=== PATIENT | male | born 1965 | race Caucasian/White ===

== ENCOUNTER 2019-05-26 09:05 | Inpatient (IN) | payer MEDICAID, SELFPAY ==
[2019-05-26] VITALS (8 sets, daily range): BP systolic 141–199; BP diastolic 71–111; PULSE 92–113; RESP 18–23; TEMP 36.6–36.8; O2SAT 96–100; BMI 39.0
--- NOTE | 2019-05-26 09:21 | ED.AMS ---
HPI - Altered Mental Status General Chief Complaint: Diabetic Problem Stated Complaint: type 2 diabetic, out of it, hallucinations Time Seen by Provider: 05/26/19 09:20 Source: patient and family (brother) Mode of arrival: Ambulatory Limitations: other (speech issues) History of Present Illness HPI narrative: 53-year-old male comes to the emergency department with complaint of hallucinations and difficulty expressing himself. Patient states that he has a hard time describing what the hallucinations are. He knows that they are not real, he states that they were there intermittently. They are not threatening more intimidating to him. Patient states that he has known diabetes, hypertension and dyslipidemia he has been off medications for years he had a lot of urinary frequency. Patient saw his primary care who restarted on aspirin, lisinopril, hydrochlorothiazide, atorvastatin and metformin. Patient states he has been taking the metformin daily but only sporadically some of the blood pressure medications. He states over the last 3-4 days he has had these hallucinations that began after he started the medications. He states that he has had trouble describing them he feels like he can talk appropriately about other topics without issue. He is accompanied by his [id number] who states this is very abnormal and he has never had symptoms like this before. He denies headache, he denies other vision changes, he denies any other speech changes, no dysarthria noted by family. No chest pain or shortness of breath. No nausea or vomiting no other GI or urinary symptoms he states the frequency is mildly improved although he has had some mild constipation passing gas. He denies any weakness numbness, no difficulty with gait or movement. Denies tobacco, alcohol or illicit. Denies any prior surgeries. Denies any allergies to medications. Related Data Home Medications Medication Instructions Recorded Confirmed aspirin 81 mg PO DAILY 05/26/19 05/26/19 atorvastatin 40 mg PO DAILY 05/26/19 05/26/19 hydrochlorothiazide 12.5 mg PO QAM 05/26/19 05/26/19 lisinopril 40 mg PO DAILY 05/26/19 05/26/19 metformin 1,000 mg PO BID 05/26/19 05/26/19 Allergies Allergy/AdvReac Type Severity Reaction Status Date / Time No Known Drug Allergies Allergy Verified 05/26/19 10:03 Review of Systems Review of Systems ROS Unobtainable: All systems reviewed & are unremarkable except as noted in HPI and below Constitutional Constitutional: Denies body ache(s), Denies chills, Denies fever(s), Denies headache(s) and Denies weakness Eyes Eyes: Denies blurry vision, Denies change in vision, Denies diplopia and Denies loss of vision ENT Ears, Nose, Mouth, and Throat: Denies abnormal hearing, Denies vertigo, Denies dizziness, Denies headache(s) and Denies disequilibrium Cardiovascular Cardiovascular: Denies chest pain, Denies diaphoresis, Denies syncope, Denies edema, Denies palpitations, Denies dyspnea and Denies dyspnea on exertion Respiratory Respiratory: Denies chest congestion, Denies cough, Denies dyspnea and Denies dyspnea on exertion Gastrointestinal Gastrointestinal: Denies abdominal pain, Denies melena, Reports constipation, Denies diarrhea, Denies nausea and Denies vomiting Genitourinary Genitourinary: Denies hematuria, Denies dysuria, Denies flank pain, Reports urinary frequency (Improving), Denies urinary hesitancy, Denies urinary incontinence and Denies urinary urgency Musculoskeletal Musculoskeletal: Denies abnormal gait, Denies limited range of motion, Denies muscle weakness, Denies numbness, Denies stiffness and Denies tingling Integumentary/Breasts Skin/Breast: Denies rash Neurologic Neurologic: Denies abnormal hearing, Denies abnormal movements, Reports abnormal speech, Denies abnormal gait, Denies behavioral changes, Denies confusion, Denies vertigo, Denies dizziness, Denies syncope, Denies headache(s), Denies focal weakness, Denies loss of vision, Denies numbness, Denies seizure-like activity, Denies sensory deficit, Denies tingling, Denies paresthesias, Denies disequilibrium and Denies weakness Psychiatric Psychiatric: Reports as per HPI, Denies behavioral changes, Denies confusion, Denies auditory hallucinations, Reports visual hallucinations, Denies hallucinations, Denies homicidal ideation and Denies suicidal ideation Endocrine Endocrine: Denies palpitations Patient History Medical History (Updated 05/26/19 @ 12:36 by Jocelynn Patricio DO) Diabetes (Acute) Dyslipidemia (Acute) Hypertension (Acute) Social History household members: family Smoking Status: Never smoker alcohol intake: never Smoking Status: Never smoker Substance Use Type: does not use Exam Narrative Exam Narrative: GEN: well nourished, well appearing male, alert and oriented x 3, patient appears to be in mild distress. Patient is able to give majority of the history without issue but has difficulty describing his hallucinations. HEENT: Atraumatic, pupils are equal round reactive to light, extraocular movements are intact, no nystagmus noted, nares are clear, TMs are clear with no fluid, there is no conjunctival pallor. Throat is clear without any exudates, erythema, tonsillar enlargement or uvular deviation, no facial droop. HEART: Regular rate and rhythm without murmur, clicks, rubs. Pulses are equal in upper and lower extremities LUNGS:Lungs clear to auscultation, no wheezes, rales, crackles, chest moves symmetrically ABD:bowel sounds normal, soft, non-tender, no guarding, rebound, rigidity, no masses noted, no hepatosplenomegaly :No CVA tenderness MSCL: Non-tender, no muscle atrophy, muscles strength 5/5 upper and lower extremities, full range of motion, normal gait NEURO:CN 2-12 intact, sensation normal, reflexes 2/4 upper and lower extremities. finger nose finger test normal, heel washburn test normal, romberg normal, mild expressive aphasia. Difficulty describing objects on the NIH scale although he is able to describe the scene that occurs without any issue on the NIH scale. SKIN: No rash or skin changes. PSYCH: Positive for visual hallucinations, denies auditory, no suicidal homicidal ideation, denies depression or other psychiatric symptoms. Initial Vital Signs Initial Vital Signs: Vital Signs Pulse Rate 113 H 05/26/19 09:24 Respiratory Rate 20 05/26/19 09:24 Blood Pressure 199/111 H 05/26/19 09:24 Pulse Oximetry 99 05/26/19 09:24 Scores NIH Stroke Scale Level of Conciousness: Alert, keenly responsive Ask month/age: Answers both questions correctly. Open/close eyes, close hand: Performs both tasks correctly Best gaze horizontal: Normal Visual wang: No visual loss Facial palsy: Normal symetrical movement Left arm drift: No drift for full 10 sec Right arm drift: No drift for full 10 sec Left leg drift: No drift for full 10 sec Right leg drift: No drift for full 10 sec Limb ataxia: Absent Sensory on face/arms/legs: Normal, no sensory loss Best language: Mild to moderate, slurs some words (no slurring but cannot name 3/5 objects but can tell me what they are related too. Can described scene without issue.) Dysarthria: Normal Extinction or inattention: No abnormality Total NIH Stroke scale score: 1 Course Orders Ordered: ED Orders 05/26/19 10:50 Urine Culture Stat Urine Drug Screen, Rapid Stat Urine Microscopic Stat Acetaminophen (Tylenol) 650 mg PO Q6HR PRN PRN Reason: Fever/Mild Pain (1-3) Al Hydrox/Mg Hydrox/Simethicone (Maalox Plus) 30 ml PO Q6HR PRN PRN Reason: Dyspepsia Bisacodyl (Dulcolax) 10 mg GA DAILY PRN PRN Reason: Constipation Calcium Carbonate (Tums) 1,000 mg PO Q4HR PRN PRN Reason: Dyspepsia Dextrose (D50w) 25 gm IV PRN PRN; Protocol PRN Reason: Hypoglycemia Heparin Sodium (Porcine) (Heparin) 5,000 unit SUBCUT BID DEEPAK Sodium Chloride (Normal Saline 0.9%) 1,000 mls @ 100 mls/hr IV CONT [facility] Last Admin: 05/26/19 16:03 Dose: 100 mls/hr Documented by: MAGNOLIA Ceftriaxone Sodium/Dextrose (Rocephin) 2 gm in 50 mls @ 100 mls/hr IV 1300 DEEPAK Insulin Aspart (Novolog Flexpen) 0 unit SUBCUT ACHS [facility]; Protocol Last Admin: 05/26/19 17:11 Dose: 3 unit Documented by: MAGNOLIA Cosigned by: MARTINA Labetalol HCl (Trandate) 10 mg IV Q4HR PRN PRN Reason: Hypertension Magnesium Hydroxide (Milk Of Magnesia) 30 ml PO DAILY PRN PRN Reason: Constipation Naloxone HCl (Narcan) 0.2 mg IV Q2MIN PRN PRN Reason: Opiate Reversal Ondansetron HCl (Zofran) 4 mg IV Q8HR PRN PRN Reason: Nausea And Vomiting Discontinued Medications Aspirin (Aspirin Chew) 324 mg PO NOW ONE Stop: 05/26/19 10:35 Last Admin: 05/26/19 11:00 Dose: 324 mg Documented by: NOLAN Sodium Chloride (Normal Saline 0.9%) 1,000 mls @ 150 mls/hr IV CONT [facility] Last Admin: 05/26/19 10:40 Dose: Not Given Documented by: NOLAN Sodium Chloride (Normal Saline 0.9%) 1,000 mls @ 1,000 mls/hr IV BOLUS ONE Stop: 05/26/19 10:58 Last Infusion: 05/26/19 12:17 Dose: 0 mls/hr Documented by: Admin: 05/26/19 10:51 Dose: 1,000 mls/hr Documented by: NOLAN Ceftriaxone Sodium/Dextrose (Rocephin) 2 gm in 50 mls @ 100 mls/hr IV NOW ONE Stop: 05/26/19 13:04 Last Infusion: 05/26/19 13:32 Dose: 0 mls/hr Documented by: Admin: 05/26/19 12:57 Dose: 100 mls/hr Documented by: NOLAN Insulin Human Regular (Humulin R) 5 unit SUBCUT NOW ONE Stop: 05/26/19 10:36 Last Admin: 05/26/19 10:58 Dose: 5 unit Documented by: NOLAN Cosigned by: SHAMAR Insulin Human Regular (Humulin R) 10 unit IV NOW ONE Stop: 05/26/19 14:59 Last Admin: 05/26/19 16:03 Dose: 10 unit Documented by: MAGNOLIA Cosigned by: MARTINA Vital Signs Vital signs: Vital Signs - 8 hr 05/26/19 11:47 Pulse Rate 92 H Respiratory Rate 18 Blood Pressure [Right Arm] 141/71 H Pulse Oximetry 96 MDM - Altered Mental Status Lab Data Attestation: I reviewed the patient's lab results. Result diagrams: 05/26/19 09:50 05/26/19 09:50 Labs: Lab Results 05/26/19 05/26/19 05/26/19 Range/Units 09:50 09:50 09:50 WBC 16.0 H (4.5-11.0) X10^3/uL RBC 5.20 (4.5-5.9) X10^6/uL Hgb 14.9 (13.5-17.5) g/dL Hct 43.9 (41-53) % MCV 84.3 (80-100) fL MCH 28.6 (26-34) PG MCHC 33.9 (30-36) % RDW 14.8 (11.6-14.8) % Plt Count 434 H (150-400) X10^3/uL Neut % (Auto) 82.7 H (50-75) % Lymph % (Auto) 10.8 L (25-40) % [place] % (Auto) 6.1 (3-14) % Eos % (Auto) 0.2 L (2-4) % Baso % (Auto) 0.2 (0-2) % Neut # (Auto) 60630 H (1256-8213) /uL Lymph # (Auto) 1700 (8878-0936) /uL [place] # (Auto) 1000 H (0-900) /uL Eos # (Auto) 0 (0-450) /uL Baso # (Auto) 0 (0-100) /uL PT 13.4 H (10.1-12.7) SECONDS INR 1.2 (0.9-1.3) APTT 32 (26.4-36.2) SECONDS ABG pH (7.35-7.45) ABG pCO2 (35-45) mmHg ABG pO2 (80-100) mmHg ABG HCO3 (22-26) mmol/L ABG Total CO2 (21-31) mmol/L ABG O2 Saturation (95-100) % ABG Base Excess (-2-2) mmol/L FiO2 Sodium 132 L (137-145) mmol/L Potassium 4.5 (3.4-5.1) mmol/L Chloride 91 L (98-107) mmol/L Carbon Dioxide 23 (22-32) mmol/L BUN 31 H (9-20) mg/dL Creatinine 1.30 H (0.66-1.25) mg/dL Estimated GFR 58.2 L (>60) mL/min BUN/Creatinine Ratio 23.8 H (6-22) Glucose 460 H (70-100) mg/dL Calcium 9.6 (8.4-10.2) mg/dL Total Bilirubin 0.9 (0.2-1.3) mg/dL AST 16 L (17-59) IU/L ALT 16 (<50) IU/L Alkaline Phosphatase 136 H (38-126) U/L Total Creatine Kinase 21 L (55-170) U/L CK-MB (CK-2) TNP CK-MB (CK-2) Rel Index TNP Troponin I < 0.012 (0.01-0.034) ng/mL Total Protein 9.0 H (6.3-8.2) g/dL Albumin 4.7 (3.5-5.0) g/dL Globulin 4.3 H (1.7-4.1) g/dL Albumin/Globulin Ratio 1.1 (1.0-2.8) TSH (0.47-4.68) uIU/mL Urine RBC (0-5/HPF) Urine WBC (0-5/HPF) Urine Bacteria (None) Ur Culture Indicated? U Opiates 300ng/mL cut (Negative) Ur Oxycodone Screen (Negative) Urine Methadone Screen (Negative) Ur Barbiturates Screen (Negative) U Tricyclic Antidepress (Negative) Ur Phencyclidine Scrn (Negative) Ur Amphetamines Screen (Negative) U Methamphetamines Scrn (Negative) Ur MDMA Scrn (Ecstasy) (Negative) U Benzodiazepines Scrn (Negative) Urine Cocaine Screen (Negative) U Marijuana (THC) Screen (Negative) Ketones (<0.27) mmol/L 05/26/19 05/26/19 05/26/19 Range/Units 09:50 09:50 09:55 WBC (4.5-11.0) X10^3/uL RBC (4.5-5.9) X10^6/uL Hgb (13.5-17.5) g/dL Hct (41-53) % MCV (80-100) fL MCH (26-34) PG MCHC (30-36) % RDW (11.6-14.8) % Plt Count (150-400) X10^3/uL Neut % (Auto) (50-75) % Lymph % (Auto) (25-40) % [place] % (Auto) (3-14) % Eos % (Auto) (2-4) % Baso % (Auto) (0-2) % Neut # (Auto) (1999-1716) /uL Lymph # (Auto) (0080-0848) /uL [place] # (Auto) (0-900) /uL Eos # (Auto) (0-450) /uL Baso # (Auto) (0-100) /uL PT (10.1-12.7) SECONDS INR (0.9-1.3) APTT (26.4-36.2) SECONDS ABG pH 7.35 (7.35-7.45) ABG pCO2 36.0 (35-45) mmHg ABG pO2 89 (80-100) mmHg ABG HCO3 20 L (22-26) mmol/L ABG Total CO2 21 (21-31) mmol/L ABG O2 Saturation 96 (95-100) % ABG Base Excess -6.0 L (-2-2) mmol/L FiO2 21 Sodium (137-145) mmol/L Potassium (3.4-5.1) mmol/L Chloride (98-107) mmol/L Carbon Dioxide (22-32) mmol/L BUN (9-20) mg/dL Creatinine (0.66-1.25) mg/dL Estimated GFR (>60) mL/min BUN/Creatinine Ratio (6-22) Glucose (70-100) mg/dL Calcium (8.4-10.2) mg/dL Total Bilirubin (0.2-1.3) mg/dL AST (17-59) IU/L ALT (<50) IU/L Alkaline Phosphatase (38-126) U/L Total Creatine Kinase (55-170) U/L CK-MB (CK-2) CK-MB (CK-2) Rel Index Troponin I (0.01-0.034) ng/mL Total Protein (6.3-8.2) g/dL Albumin (3.5-5.0) g/dL Globulin (1.7-4.1) g/dL Albumin/Globulin Ratio (1.0-2.8) TSH 1.67 (0.47-4.68) uIU/mL Urine RBC (0-5/HPF) Urine WBC (0-5/HPF) Urine Bacteria (None) Ur Culture Indicated? U Opiates 300ng/mL cut (Negative) Ur Oxycodone Screen (Negative) Urine Methadone Screen (Negative) Ur Barbiturates Screen (Negative) U Tricyclic Antidepress (Negative) Ur Phencyclidine Scrn (Negative) Ur Amphetamines Screen (Negative) U Methamphetamines Scrn (Negative) Ur MDMA Scrn (Ecstasy) (Negative) U Benzodiazepines Scrn (Negative) Urine Cocaine Screen (Negative) U Marijuana (THC) Screen (Negative) Ketones 4.02 H (<0.27) mmol/L 02/24/20 02/24/20 Range/Units 10:50 10:50 WBC (4.5-11.0) X10^3/uL RBC (4.5-5.9) X10^6/uL Hgb (13.5-17.5) g/dL Hct (41-53) % MCV (80-100) fL MCH (26-34) PG MCHC (30-36) % RDW (11.6-14.8) % Plt Count (150-400) X10^3/uL Neut % (Auto) (50-75) % Lymph % (Auto) (25-40) % [place] % (Auto) (3-14) % Eos % (Auto) (2-4) % Baso % (Auto) (0-2) % Neut # (Auto) (7877-3579) /uL Lymph # (Auto) (7107-6598) /uL [place] # (Auto) (0-900) /uL Eos # (Auto) (0-450) /uL Baso # (Auto) (0-100) /uL PT (10.1-12.7) SECONDS INR (0.9-1.3) APTT (26.4-36.2) SECONDS ABG pH (7.35-7.45) ABG pCO2 (35-45) mmHg ABG pO2 (80-100) mmHg ABG HCO3 (22-26) mmol/L ABG Total CO2 (21-31) mmol/L ABG O2 Saturation (95-100) % ABG Base Excess (-2-2) mmol/L FiO2 Sodium (137-145) mmol/L Potassium (3.4-5.1) mmol/L Chloride (98-107) mmol/L Carbon Dioxide (22-32) mmol/L BUN (9-20) mg/dL Creatinine (0.66-1.25) mg/dL Estimated GFR (>60) mL/min BUN/Creatinine Ratio (6-22) Glucose (70-100) mg/dL Calcium (8.4-10.2) mg/dL Total Bilirubin (0.2-1.3) mg/dL AST (17-59) IU/L ALT (<50) IU/L Alkaline Phosphatase (38-126) U/L Total Creatine Kinase (55-170) U/L CK-MB (CK-2) CK-MB (CK-2) Rel Index Troponin I (0.01-0.034) ng/mL Total Protein (6.3-8.2) g/dL Albumin (3.5-5.0) g/dL Globulin (1.7-4.1) g/dL Albumin/Globulin Ratio (1.0-2.8) TSH (0.47-4.68) uIU/mL Urine RBC 0-1/hpf (0-5/HPF) Urine WBC >100/hpf H (0-5/HPF) Urine Bacteria Many (>30) H (None) Ur Culture Indicated? Specimen cultured U Opiates 300ng/mL cut Negative (Negative) Ur Oxycodone Screen Negative (Negative) Urine Methadone Screen Negative (Negative) Ur Barbiturates Screen Negative (Negative) U Tricyclic Antidepress Negative (Negative) Ur Phencyclidine Scrn Negative (Negative) Ur Amphetamines Screen Negative (Negative) U Methamphetamines Scrn Negative (Negative) Ur MDMA Scrn (Ecstasy) Negative (Negative) U Benzodiazepines Scrn Negative (Negative) Urine Cocaine Screen Negative (Negative) U Marijuana (THC) Screen Negative (Negative) Ketones (<0.27) mmol/L Point of Care Testing Glucose POC 325 Urine Dip Bedside Urine Glucose 1000 mg/dl Bedside Urine Bilirubin - Negative Bedside Urine Ketone ++ 40 Urine Specific [place] 1.015 Bedside Urine Occult Blood +/- Bedside Urine pH 7.0 Bedside Urine Protein +/- 15 Bedside Urine Urobilinogen - Negative Bedside Urine Nitrite - Negative Bedside Urine Leukocytes + 70 Esterase ABG Data ABG results: ABG shows a pH is 7.34 with pCO2 hurt 36 PaO2 89 and a bicarb of 19.8. On room air. Attestation: I personally reviewed and interpreted this ABG as follows: Interpretation: metabolic acidosis. Imaging Data CT scan - head: Radiologist's Impression: Luis Krueger 53 M [address] [address] [address] Scan Report Signed Patient: Luis KruegerMR#: [id number] : 1965Acct:[id number] Age/Sex: 53 / MDate of Service: 05/26/19 Loc: ED Accession Number: [id number] Procedure: CT Stroke Ordering Provider: Jocelynn Patricio D.O. PROCEDURE: CT STROKE INDICATIONS: hallucinations, difficulty with speech TECHNIQUE: Noncontrast 4.5 mm thick angled axial sections acquired from the foramen magnum to the vertex, with coronal reformats. For radiation dose reduction, the following was used: automated exposure control, adjustment of mA and/or kV according to patient size. COMPARISON: None. FINDINGS: Image quality: Excellent. CSF spaces: Basal cisterns are patent. No extra-axial fluid collections. Ventricles are normal in size and shape. Brain: No midline shift. No intracranial masses or hemorrhage. Alexander-white matter interface is normal. 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 Skull and face: Calvarium and visualized facial bones are intact, without suspicious lesions. Sinuses: Visualized sinuses and mastoids are clear. IMPRESSION: No acute intracranial process. Chronic incidental presumed left posterior fossa arachnoid cyst Findings were personally telephoned and discussed with Dr. Patricio in the emergency department at 0958 hours 05/26/19. This study fulfills neurological imaging criteria for inclusion or exclusion of acute stroke therapies based on available published neurological imaging guidelines. Dictated by: Gomez Brush M.D. on 05/26/2019 at 9:52 Approved by: Gomez Brush M.D. on 05/26/2019 at 9:58 ECG Data Attestation: I personally reviewed and interpreted this ECG as follows: Prior ECG tracings: not available for review Interpretation: Tachycardia rate of 105 P are 120 QRS of [address] elevation appreciated. Depression. Patient does have some tolerate sloping T-waves in lateral leads. No priors available. MDM Narrative Medical decision making narrative: No acute change on Head CT non-contrast. Results called to myself by Dr. Brush. Labs show leukocytosis, anion gap of 18 with a bicarb that is 23, patient has positive ketones in serum. Trop is negative, he has some electrolyte abnormalities but none great enough that would likely cause his symptoms. TSH is in normal range. CTA is negative. Chest x-ray is negative. Urine shows leukocyte esterase but no nitrates. Sent for culture. His glucose is elevated at 460 after L fluid and 5 of insulin patient came down to 364. Patient still states he is having some mild symptoms but states it seems a little bit better. He is continued to have some difficulties expressing himself at times. Discussed with hospice initially there was concern for hypertensive encephalopathy but his pressure improved almost immediately on repeat serial blood pressures, stroke versus is hallucinations secondary to hyperglycemia although he is not in DKA at this time. Patient was started on Rocephin [address] Faustin for hyperglycemia which is not DKA, possible stroke versus UTI with altered mental status. Patient has not had any worsening symptoms. He has had 4 days of symptoms so he is far outside the tPA window. Discharge Plan Departure Patient Disposition: Admitted as Observation Clinical Impression: Hyperglycemia, Hallucinations UTI (urinary tract infection) Qualifiers: Urinary tract infection type: site unspecified Discharge Date/Time: 05/26/19 14:00 Admit Date/Time: 05/26/19 12:46 Admit Provider: Teetee Faustin
--- NOTE | 2019-05-26 09:35 | DI.CT.S_ITS ---
PROCEDURE: CT STROKE INDICATIONS: hallucinations, difficulty with speech TECHNIQUE: Noncontrast 4.5 mm thick angled axial sections acquired from the foramen magnum to the vertex, with coronal reformats. For radiation dose reduction, the following was used: automated exposure control, adjustment of mA and/or kV according to patient size. COMPARISON: None. FINDINGS: Image quality: Excellent. CSF spaces: Basal cisterns are patent. No extra-axial fluid collections. Ventricles are normal in size and shape. Brain: No midline shift. No intracranial masses or hemorrhage. [place]-white matter interface is normal. 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 Skull and face: Calvarium and visualized facial bones are intact, without suspicious lesions. Sinuses: Visualized sinuses and mastoids are clear. IMPRESSION: No acute intracranial process. Chronic incidental presumed left posterior fossa arachnoid cyst Findings were personally telephoned and discussed with Dr. Patricio in the emergency department at 0958 hours 05/26/19. This study fulfills neurological imaging criteria for inclusion or exclusion of acute stroke therapies based on available published neurological imaging guidelines. Dictated by: Gomez Brush M.D. on 05/26/2019 at 9:52 Approved by: Gomez Brush M.D. on 05/26/2019 at 9:58
--- NOTE | 2019-05-26 09:36 | DI.CT.S_ITS ---
PROCEDURE: CT ANGIO HEAD AND NECK INDICATIONS: hallucinations, difficulty with speech TECHNIQUE: Pre-contrast 4.5 mm thick sections acquired from the foramen magnum to the vertex. After the administration of intravenous contrast, 1 mm thick sections acquired from the aortic arch through the [place] of [place]. Post-contrast 4.5 mm thick sections then re-acquired from the foramen magnum to the vertex. 3-dimensional yapoffv-jrflzrauu-wtrnevdydr (MIP) and/or volume rendering reformats were acquired of the central intracranial vasculature and neck separately. COMPARISON: [facility], CT, CT STROKE, 05/26/2019, 9:37. FINDINGS: Image quality: Excellent. BRAIN: CSF spaces: Ventricles are normal in size and shape. Basal cisterns are patent. No extra-axial fluid collections. Brain: No midline shift. No intracranial bleeds. Posterior fossa hypoattenuation focus is unchanged. This likely represents prominent cisterna magna ersist arachnoid cyst. Alexander-white matter interface appears intact. Skull and face: Calvarium and facial bones appear intact, without suspicious lesions. Orbits appear normal. Sinuses: Sinuses and mastoids are clear. HEAD CT ANGIOGRAPHY: Anterior circulation: Intracranial internal carotid arteries are normal in size and flow. The flow within the paired anterior cerebral arteries is normal and symmetric. The flow within the middle cerebral arteries is normal and symmetric. The anterior communicating artery is seen. No aneurysms are seen. Posterior circulation: Visualized portions of the vertebral arteries demonstrate normal caliber, and join to form a normal appearing basilar artery. Flow within the posterior cerebral arteries is normal and symmetric. No aneurysms are seen. NECK CT ANGIOGRAPHY: The origins of the left and right common, internal and external carotid arteries demonstrate no areas of hemodynamically significant stenosis, vascular occlusion or aneurysmal dilation. Origins of the left and right vertebral arteries demonstrate no areas of hemodynamically significant stenosis, vascular occlusion or aneurysmal dilation. Aortic arch demonstrates conventional anatomy. Limited, visualized portions of the subclavian vasculature are unremarkable. Main pulmonary artery is mildly prominent. Early pulmonary artery hypertension cannot be definitively excluded. IMPRESSION: 1. No acute intracranial process. 2. No areas of hemodynamically significant stenosis, vascular occlusion or aneurysmal dilation within the anterior or posterior circulation. 3. No areas of hemodynamically significant stenosis, vascular occlusion or aneurysmal dilation within the neck vasculature. Any quantitative measurements of stenosis were performed using NASCET criteria. Dictated by: Shaye Hughes M.D. on 05/26/2019 at 10:55 Approved by: Shaye Hughes M.D. on 05/26/2019 at 11:03
[2019-05-26 10:00] LABS: Add Manual Diff / Slide Review NO; Basophils Absolute Auto 0 /uL (0-100); Basophils Percent Auto 0.2 % (0-2); Eosinophils Absolute Auto 0 /uL (0-450); Eosinophils Percent Auto 0.2 % (2-4); Hematocrit 43.9 % (41-53); Hemoglobin 14.9 g/dL (13.5-17.5); Lymphocytes Absolute Auto 1700 /uL (1100-4500); Lymphocytes Percent Auto 10.8 % (25-40); Mean Corpuscular HGB Conc 33.9 % (30-36); Mean Corpuscular Hemoglobin 28.6 PG (26-34); Mean Corpuscular Volume 84.3 fL (80-100); Monocytes Absolute Auto 1000 /uL (0-900); Monocytes Percent Auto 6.1 % (3-14); Neutrophils Absolute Auto 13200 /uL (1500-7000); Neutrophils Percent Auto 82.7 % (50-75); Platelet Count 434 X10^3/uL (150-400); Red Cell Distribution Width 14.8 % (11.6-14.8)
[2019-05-26 10:06] LABS: INR 1.2 (0.9-1.3); Prothrombin Time 13.4 SECONDS (10.1-12.7)
[2019-05-26 10:08] LABS: PTT Partial Thromboplastin Tim 32 SECONDS (26.4-36.2)
[2019-05-26 10:12] LABS: Alanine Aminotransferase 16 IU/L (<50); Albumin 4.7 g/dL (3.5-5.0); Albumin Globulin Ratio 1.1 (1.0-2.8); Alkaline Phosphatase 136 U/L (38-126); Aspartate Aminotransferase 16 IU/L (17-59); BUN Creatinine Ratio 23.8 (6-22); Bilirubin Total 0.9 mg/dL (0.2-1.3); Blood Urea Nitrogen 31 mg/dL (9-20); Calcium 9.6 mg/dL (8.4-10.2); Carbon Dioxide 23 mmol/L (22-32); Chloride 91 mmol/L (98-107); Creatine Kinase 21 U/L (55-170); Estimated Glomerular Filt Rate 58.2 mL/min (>60); Globulin 4.3 g/dL (1.7-4.1); Glucose 460 mg/dL (70-100); HEMOLYSIS < 15 (0-50); Potassium 4.5 mmol/L (3.4-5.1); Sodium 132 mmol/L (137-145)
[2019-05-26 10:13] LABS: Ketones (Beta-Hydroxybutyrate) 4.02 mmol/L (<0.27)
[2019-05-26 10:23] LABS: Troponin I < 0.012 ng/mL (0.01-0.034)
[2019-05-26] MEDS: SODIUM CHLORIDE 0.9% 1,000 ML 1000 ML IV (10:51)
[2019-05-26 10:54] LABS: Fractionated Inspired Oxygen 21; HCO3 ABG 20 mmol/L (22-26); Oxygen Saturation ABG 96 % (95-100); PO2 ABG 89 mmHg (80-100); TCO2 ABG 21 mmol/L (21-31); pH ABG 7.35 (7.35-7.45)
[2019-05-26] MEDS: INSULIN REGULAR 100 UNIT/ML 3 ML VIAL SUBCUT (10:58)
[2019-05-26] MEDS: ASPIRIN 81 MG CHEW TAB 324 MG PO (11:00)
[2019-05-26 11:15] LABS: Thyroid Stimulating Hormone 1.67 uIU/mL (0.47-4.68)
[2019-05-26 11:16] LABS: Ur Creatinine Normal (Normal); Ur Specific Gravity Normal (Normal); Urine Tetrahydrocannabinol Negative (Negative); Urine pH Normal (Normal)
[2019-05-26 11:17] LABS: UR Morphine/Opiate cutoff 300 Negative (Negative); Urine Amphetamines Negative (Negative); Urine Barbiturates Negative (Negative); Urine Benzodiazepines Negative (Negative); Urine Cocaine Negative (Negative); Urine MDMA Negative (Negative); Urine Methadone Negative (Negative); Urine Methamphetamines Negative (Negative); Urine Oxycodone Negative (Negative); Urine Phencyclidine Negative (Negative); Urine Tricyclic Antidepressant Negative (Negative)
[2019-05-26 11:29] LABS: Bacteria Urine Many (>30); Culture Indicated Urine Specimen Cultured; RBC Urine 0-1/HPF (0-5/HPF); WBC Urine >100/HPF (0-5/HPF)
[2019-05-26] MEDS: CEFTRIAXONE 2 GM/50 ML FROZ.PIGGY IV (12:57)
--- NOTE | 2019-05-26 14:13 | PC.NURSE ---
Patient alert, oriented, denies pain and nausea. Reports seeing things that aren't there. Patient denies hearing things. Patient reports this started after seeing his doctor and starting taking medications that had been filled by the provider. NIH 1, patient with some aphasia, could not name the objects in the pictures or read the sentences.
--- NOTE | 2019-05-26 14:18 | DI.MRI.S_ITS ---
PROCEDURE: MR STROKE Pre- and post-contrast brain MRI, non-contrast brain MR angiogram, pre- and postcontrast neck MR angiogram INDICATIONS: Expressive aphasia, Visual hallucinations, CVA r/o TECHNIQUE: Brain: Noncontrast axial T1 spin echo, axial T2 fast spin echo, sagittal and axial FLAIR, coronal T2 fast spin echo, axial gradient echo, axial diffusion and ADC through the brain. After the administration of contrast, axial 3D VIBE of the cranial vasculature and brain. Brain MRA: Non-contrast 3-D time of flight MR angiogram, with multiple zrnglyw-pejdyigrt-ljootabbhu (MIP) reformats performed. Neck MRA: Axial and sagittal TruFISP through the neck. Coronal dynamic MR angiogram during administration of contrast in the arterial and venous phases, with 3-dimenstional rnymsrj-uktfojiql-dxeiwocgte (MIP) reformats constructed from subtraction images. COMPARISON: None. FINDINGS: Image quality: Excellent. BRAIN: CSF spaces: Ventricles are normal in size and shape. Basal cisterns are patent. No extra-axial fluid collections. Brain: No intracranial bleeds or mass effects. Alexander-white matter interface is normal. Diffusion weighted images show no acute ischemic insults. Brainstem appears normal. Normal intravascular flow voids are present. No abnormal intracranial enhancement. Skull and face: Calvarial marrow signal is normal. Orbits appear normal. Sinuses: Sinuses and mastoids are clear. BRAIN MR ANGIOGRAM: Anterior circulation: Intracranial internal carotid arteries are normal in size and enhancement. The flow within the paired anterior cerebral arteries is normal and symmetric. The flow within the middle cerebral arteries is normal and symmetric. The anterior communicating artery is seen. No stenoses, occlusions, or aneurysms. Posterior circulation: The visualized portions of the vertebral arteries demonstrate normal caliber, and join to form a normal appearing basilar artery. The flow within the posterior cerebral arteries is normal and symmetric. No stenoses, occlusions, or aneurysms. NECK MR ANGIOGRAM: Carotids: Great vessels demonstrate a conventional anatomy as they arise from the aortic arch. The origins of the common carotid arteries appear patent. The calibers and courses of both common carotid arteries are normal. The bifurcation regions appear normal bilaterally. The internal carotid arteries demonstrate normal course and caliber. Posterior circulation: The origins of the vertebral arteries appear patent. More superior portions of both vertebral arteries demonstrate normal course and caliber, and join to form a normal appearing basilar artery. Miscellaneous: Subclavian arteries appear patent. Pre-contrast images through the neck show no soft tissue abnormalities. IMPRESSION: BRAIN MRI: Normal for age, source of current symptoms is not seen. BRAIN MR ANGIOGRAM: Normal intracranial MR angiogram. NECK MR ANGIOGRAM: Normal cervical MR angiogram. Dictated by: Petey Lew M.D. on 05/26/2019 at 16:13 Approved by: Petey Lew M.D. on 05/26/2019 at 16:15
[2019-05-26] MEDS: SODIUM CHLORIDE 0.9% 1,000 ML 100 ML IV (16:03)
[2019-05-26] MEDS: INSULIN REGULAR 100 UNIT/ML 3 ML VIAL 10 UNIT IV (16:03)
[2019-05-26] MEDS: INSULIN ASPART 100 UNIT/ML INSULN PEN SUBCUT ×2 (17:11→21:42)
--- NOTE | 2019-05-26 17:48 | ST.IPIE ---
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 Teetee Faustin Reason for Referral Expressive Language difficulties Language Evaluation Assessment Type Speech-Language Past Medical History Patient History 53-year-old male presented to the emergency department with complaint of hallucinations and difficulty expressing himself. Pt reported hallucinations have been occurring since approximately of last week when he resumed Insulin intake after not having taken it for possibly up to 4 yrs. Pt was largely able to express himself in ED with exception of describing hallucinations. CT scan revealed Chronic incidental presumed left posterior fossa arachnoid cyst . All other imaging appears to be normal. The pt lives with 3 brothers and reports being very uncomfortable with interacting with others and socializing. Hearing Hearing Level Normal Vision Comments Wears reading glasses Educational Status Education Level High School Previous Therapy Previous Speech-Language Therapy No Oral Motor Examination Oral Motor Exam Completed Yes Results WNL with exception of dentition, which was natural with several molars broken or missing. Pt reported no interference with mastication. Subjective Subjective Pt was awake, lying in bed and watching TV upon arrival of digital marketing analyst (Hanny Hobson and Rebeka Andre). He reported ongoing intermittent hallucinations on right side only, and did have 3-4 hallucinations over the course of assessment. He verbalized understanding that they were not real, that they don't speak to him, and had difficulty describing them. Pt denied swallow difficulties and felt his expressive and receptive language skills were at baseline with exception of difficulty describing hallucinations. He did report frequent urination and lack of bowel movement over several days. - Informal Assessment Assessment Findings Pt was 100% intelligible with no symptoms of dysarthria and was able to participate effectively in oral conversation. He answered simple and complex yes/no questions, followed 2- and 3- step directions, pointed to objects, and identified right/ left side body parts without difficulty. He reported changes in ability to answer questions. For example, being able to answer a question once but unable to later when asked again by a different person. The pt exhibited errors in reading and writing tasks, including perseveration in reading and transposing of letters and misspellings of phonetic and irregular words in writing tasks. He wrote a simple sentence that was grammatically correct but with misspellings. The pt stated he has never been good with writing and that he recognized the letters in written text but that it doesn't make any sense. Difficult to determine if this is baseline or new. Question dyslexia. The pt did experience 3-4 hallucinations on his right side only during the evaluation, which he had difficulty describing in detail. He identified individuals, sometimes famous people, other times relatives. At other times he described scenes, such as a kitchen or living room, and objects such a trash bag. He stated objects often match the room creating occasional difficulty for him to identify them as hallucinations. Images appear to stem from memories. Recommendations Follow pt for ongoing assessment of language skills. Assess cognitive linguistic skills. - Receptive Language - Expressive Language - Treatment Goals Short Term Goals 1. Pt will participate in further assessment of expressive, receptive and cognitive communication skills to guide POC. 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 Pt will demonstrate expressive and receptive language skills sufficient to express wants, needs, and ideas and participate in medical decisions. 2. Cognitive communication goals to be determined pending assessment.
--- NOTE | 2019-05-26 21:17 | PM.HP.1 ---
History of Present Illness History of Present Illness Date Patient Seen: 05/26/19 Time Patient Seen: 21:17 Chief complaint: type 2 diabetic, out of it, hallucinations Narrative: Mr. Luis Krueger is a 53-year-old male patient with a history significant for diabetes, hyperlipidemia and hypertension who presents to the ER with complaints of confusion and hallucinations. Patient has the above history but quit taking medications many years ago. Patient states he had been progressively feeling poorly so he sought medical care at the [facility] 1 week ago and was restarted on metformin 1000 mg twice daily, atorvastatin, hydrochlorothiazide and lisinopril. The patient states that after restarting medications is when he began experiencing hallucinations. His hallucinations are visual in nature and he describes them as familiar objects from his past and that appear in his right peripheral vision of both eyes.. He will look away and then the back again and will be gone. The patient states over the last day or 2 he has had increasing difficulty expressing himself including word-finding difficulties. The patient denies complaints headaches or other visual changes. Reports no difficulty with speech or swallowing, numbness, weakness or disequilibrium. He has had no recent complaints of fevers or chills nasal congestion or sore throat. No chest pain but endorses episodic palpitations. He has no shortness of breath cough or wheezing. He has had no abdominal pain the way does report abdominal discomfort that he relates to not moving his bowels for 1 week. He has had no nausea vomiting. He endorses frequent urination without burning or urgency or hematuria. The patient describes himself as a altered private person and avoids medical care. Upon arrival patient has a temperature 97.8?, and tachycardic 113, hypertensive 199/111 that improves to 151/91, respirations of 18 and saturation 99% on room air. The patient is evaluated following stroke protocol with CT and CTA of the head and neck being unremarkable except for a chronic posterior fossa arachnoid cyst. Her the patient underwent MR stroke protocol with results finding no acute injury and normal for patient age. On laboratory analysis patient has an elevated white count of 16.0 with left shift, hemoglobin of 14.9 hematocrit of 43.9 and platelets of 434. On coagulation is a PT of 13.4, INR of 1.2 and PTT of 32. On chemistries the patient has a low sodium at 132 and a potassium of 4.5 his BUN is 31 with a creatinine of 1.3, the patient's LFTs are unremarkable. His nonfasting glucose is 460. The patient has ketosis at 4.02. ABG is obtained finding a pH 7.35, pCO2 36, PO2 of 89, bicarb 20 with base excess -6 saturation calculated 96% on 21% oxygen. Troponin is negative at less than 0.012. And TSH is within normal at 1.67. A screening urinalysis is obtained finding greater than 100 wbc's and many bacteria and is reflex to culture the patient is admitted to the medicine service for toxic encephalopathy believe related to UTI with hyperglycemia and acute kidney injury. Patient History Medical History (Updated 05/26/19 @ 23:17 by LUIS ALFREDO Loomis) Diabetes (Acute) Dyslipidemia (Acute) Hypertension (Acute) Palpitations (Acute) Surgical History (Updated 05/26/19 @ 23:17 by LUIS ALFREDO Loomis) No pertinent past surgical history (Acute) Family & Social History Social History: household members family Prior Living Arrangements House Safety & Behavioral: Feels Safe in Current Yes Environment Been Physically Hurt or No Threatened By a Person Suicidal Ideation Description None Suicide Plan Description No Plan Tobacco & Substance use: Smoking Status Never smoker alcohol intake never Substance Use Type does not use Comment: Patient is single and lives with his 3 adoptive brothers in a single family home. The patient was adopted and has no knowledge of his blood relatives health history. Occupation: Unemployed Smoking: The patient denies using tobacco products. Alcohol: The patient denies consuming alcoholic beverages. Substance use: Patient denies recreation pharmaceuticals, herbal or cannabis products. Advanced directives: The patient does not have formal advanced directives but states his desire to be FULL CODE. He designates his brother Keven Krueger to be his surrogate decision maker. Meds Home Medications and Allergies Home Medications Medication Instructions Recorded Confirmed Type aspirin 81 mg PO DAILY 05/26/19 05/26/19 History atorvastatin 40 mg PO DAILY 05/26/19 05/26/19 History hydrochlorothiazide 12.5 mg PO QAM 05/26/19 05/26/19 History lisinopril 40 mg PO DAILY 05/26/19 05/26/19 History metformin 1,000 mg PO BID 05/26/19 05/26/19 History Allergies Allergy/AdvReac Type Severity Reaction Status Date / Time No Known Drug Allergies Allergy Verified 05/26/19 10:03 Review of Systems Review of Systems ROS: Yes All systems reviewed with the patient and are negative except as otherwise documented Exam Vital Signs (past 8 hours): - 05/26/19 14:20 05/26/19 16:23 05/26/19 20:54 Temperature 98.2 F 98.3 F 97.8 F Pulse Rate 100 H 103 H 93 H Respiratory Rate 18 20 18 Blood Pressure 194/111 H 151/91 H 142/86 H Pulse Oximetry 100 99 97 Oxygen Delivery Method Room Air Oxygen Flow Rate 0 Narrative Exam Narrative: GENERAL APPEARANCE: well developed, well nourished, slightly unkempt male who was restless but in no acute distress HEENT: Normocephalic, PERRLA, conjunctiva clear, EOMs intact without nystagmus, no sinus tenderness to percussion, no rhinorrhea, poor dentation, mucous membranes are dry and pink without lesions or exudate. NECK/THYROID: neck supple, no JVD, no carotid bruit, no thyromegaly, trachea midline. LYMPH NODES: no cervical or supraclavicular lymphadenopathy. SKIN: [place], warm and dry, decreased turgor with tenting, no visible lesions, rashes. HEART: regular rate and rhythm, S1-S2, no murmur, no rubs or gallops, brisk capillary refill, no edema LUNGS: clear to auscultation bilaterally, no coarseness crackles or wheezing, no cough present CHEST: Symmetrical movement, no accessory muscle use, good tidal volume. ABDOMEN: Soft, no distention, mild discomfort on palpation, no guarding or peritoneal signs, no organomegaly, no flank or suprapubic tenderness, active bowel tones. BACK: Normal curvature, nontender to palpation, no CVA tenderness on percussion EXTREMITIES: moves all extremities, strength is 5/5 and symmetrical, no deformities or joint effusions. NEUROLOGIC: AAO x4, repeatedly looking up into the right add visual hallucinations. Cranial nerves II-XII grossly intact, peripheral sensation intact to light touch, hearing grossly normal to speech. PSYCH: Guarded, suspicious, cooperative, appropriate with stable behavior, hallucinations are nonthreatening, no thoughts of self-harm or suicide. Objective Labs Result Diagrams: 05/26/19 09:50 05/26/19 09:50 Labs: Laboratory Results - last 24 hr 05/26/19 05/26/19 05/26/19 09:50 09:50 09:50 WBC 16.0 H RBC 5.20 Hgb 14.9 Hct 43.9 MCV 84.3 MCH 28.6 MCHC 33.9 RDW 14.8 Plt Count 434 H Neut % (Auto) 82.7 H Lymph % (Auto) 10.8 L Prentiss % (Auto) 6.1 Eos % (Auto) 0.2 L Baso % (Auto) 0.2 Neut # (Auto) 30940 H Lymph # (Auto) 1700 Prentiss # (Auto) 1000 H Eos # (Auto) 0 Baso # (Auto) 0 PT 13.4 H INR 1.2 APTT 32 ABG pH ABG pCO2 ABG pO2 ABG HCO3 ABG Total CO2 ABG O2 Saturation ABG Base Excess FiO2 Sodium 132 L Potassium 4.5 Chloride 91 L Carbon Dioxide 23 BUN 31 H Creatinine 1.30 H Estimated GFR 58.2 L BUN/Creatinine Ratio 23.8 H Glucose 460 H Calcium 9.6 Total Bilirubin 0.9 AST 16 L ALT 16 Alkaline Phosphatase 136 H Total Creatine Kinase 21 L CK-MB (CK-2) TNP CK-MB (CK-2) Rel Index TNP Troponin I < 0.012 Total Protein 9.0 H Albumin 4.7 Globulin 4.3 H Albumin/Globulin Ratio 1.1 TSH Urine RBC Urine WBC Urine Bacteria Ur Culture Indicated? U Opiates 300ng/mL cut Ur Oxycodone Screen Urine Methadone Screen Ur Barbiturates Screen U Tricyclic Antidepress Ur Phencyclidine Scrn Ur Amphetamines Screen U Methamphetamines Scrn Ur MDMA Scrn (Ecstasy) U Benzodiazepines Scrn Urine Cocaine Screen U Marijuana (THC) Screen Ketones 05/26/19 05/26/19 05/26/19 09:50 09:50 09:55 WBC RBC Hgb Hct MCV MCH MCHC RDW Plt Count Neut % (Auto) Lymph % (Auto) Prentiss % (Auto) Eos % (Auto) Baso % (Auto) Neut # (Auto) Lymph # (Auto) Prentiss # (Auto) Eos # (Auto) Baso # (Auto) PT INR APTT ABG pH 7.35 ABG pCO2 36.0 ABG pO2 89 ABG HCO3 20 L ABG Total CO2 21 ABG O2 Saturation 96 ABG Base Excess -6.0 L FiO2 21 Sodium Potassium Chloride Carbon Dioxide BUN Creatinine Estimated GFR BUN/Creatinine Ratio Glucose Calcium Total Bilirubin AST ALT Alkaline Phosphatase Total Creatine Kinase CK-MB (CK-2) CK-MB (CK-2) Rel Index Troponin I Total Protein Albumin Globulin Albumin/Globulin Ratio TSH 1.67 Urine RBC Urine WBC Urine Bacteria Ur Culture Indicated? U Opiates 300ng/mL cut Ur Oxycodone Screen Urine Methadone Screen Ur Barbiturates Screen U Tricyclic Antidepress Ur Phencyclidine Scrn Ur Amphetamines Screen U Methamphetamines Scrn Ur MDMA Scrn (Ecstasy) U Benzodiazepines Scrn Urine Cocaine Screen U Marijuana (THC) Screen Ketones 4.02 H 05/26/19 05/26/19 10:50 10:50 WBC RBC Hgb Hct MCV MCH MCHC RDW Plt Count Neut % (Auto) Lymph % (Auto) Prentiss % (Auto) Eos % (Auto) Baso % (Auto) Neut # (Auto) Lymph # (Auto) Prentiss # (Auto) Eos # (Auto) Baso # (Auto) PT INR APTT ABG pH ABG pCO2 ABG pO2 ABG HCO3 ABG Total CO2 ABG O2 Saturation ABG Base Excess FiO2 Sodium Potassium Chloride Carbon Dioxide BUN Creatinine Estimated GFR BUN/Creatinine Ratio Glucose Calcium Total Bilirubin AST ALT Alkaline Phosphatase Total Creatine Kinase CK-MB (CK-2) CK-MB (CK-2) Rel Index Troponin I Total Protein Albumin Globulin Albumin/Globulin Ratio TSH Urine RBC 0-1/hpf Urine WBC >100/hpf H Urine Bacteria Many (>30) H Ur Culture Indicated? Specimen cultured U Opiates 300ng/mL cut Negative Ur Oxycodone Screen Negative Urine Methadone Screen Negative Ur Barbiturates Screen Negative U Tricyclic Antidepress Negative Ur Phencyclidine Scrn Negative Ur Amphetamines Screen Negative U Methamphetamines Scrn Negative Ur MDMA Scrn (Ecstasy) Negative U Benzodiazepines Scrn Negative Urine Cocaine Screen Negative U Marijuana (THC) Screen Negative Ketones Assessment & Plan Assessment & Plan narrative: This is a 53-year-old male patient who has untreated diabetes, hypertension and hyperlipidemia had been untreated for many years who was just recently restarted on medication and has been experiencing impaired cognition and visual hallucinations. 1. Toxic metabolic encephalopathy, acute, present on admission, active The patient has had progressive symptoms for 1 week with visual hallucinations difficult concentration and word-finding. Hallucinations are familiar objects including paintings, shelving or plant. Hallucinations are nonthreatening. No prior history or family history of psychiatric disturbance. CVA ruled out with imaging finding no acute intracranial processes or vascular abnormalities, finding of chronic posterior fossa arachnoid cyst. MRI is normal for age. Patient is hyperglycemic with blood sugar 460 with ketones but no acidosis or anion gap. Symptoms may be related to urinary tract infection, urine with greater than 100 WBCs and many bacteria. Will evaluate response to antibiotic therapy noted below. Continued neuro checks in PT and OT to consult and evaluate. 2. Acute urinary tract infection, present on admission, active. Patient with markedly elevated blood sugar and untreated diabetes until 1 week ago having been started on metformin. urine with greater than 100 WBCs and many bacteria. Reflex to culture. Ordered ceftriaxone 2 g IV every 24 hours. 3. Type 2 diabetes with hyperglycemia, chronic, active Patient with long history of diabetes has been untreated until 1 week ago. He started on metformin and has an elevated creatinine 1.3 and EGFR of 58.2. No evidence of metformin toxicity. Patient states has not been eating well over the last week related to abdominal fullness, no bowel movement for 1 week. Blood sugar on admission is 460 with no acidosis or anion gap. He does have elevated ketones at 4.02. Patient received 5 units of insulin subcu x1 followed by 10 units of regular insulin IV with decrease in blood sugar to 240s. Fingerstick blood sugars at AC and HS. Coverage with low-dose correctional insulin. Ordered Lantus 8 units at bedtime. 4. Elevated serum creatinine, probable acute kidney injury verses chronic kidney disease, present on admission, active. Patient reports frequent urination with no burning, hematuria or flank pain. Patient appears clinically dehydrated. The patient presents with a BUN of 31 and creatinine of 1.3. BUN creatinine ratio was 23.8. He has had diabetes and hypertension that have been on treated for years presenting with a blood pressure of 199/111. Screening urinalysis completed, POC, positive for leukocyte esterase, negative nitrates, positive for protein, spec gravity of 1.015. Ordered normal saline 100 cc/hour. Will follow chemistries. 5. Constipation, present on admission, active. Patient reports not moving his bowels for 1 week. He states his stool has been hard and difficult to pass consistent with dehydration as mentioned above. Dulcolax suppository x1 now and daily as needed, docusate 100 mg twice daily. Rehydrate patient with normal saline 100 cc/hour. VTE prophylaxis: SCDs, heparin. Diet: Meeting carbohydrate diet IV fluid: Normal saline 100 cc/hour Patient is admitted to the hospital related to the severity symptoms and risk potential complications adverse events. The patient is admitted as observation with anticipated length of stay to be less than 2 midnights. Scores GCS Tammie coma scale eye opening: Spontaneous Tammie coma scale verbal response: Orientated [place] coma scale motor response: Obey commands Tammie coma scale total score: 15 Quality VTE Deep Vein Thrombosis/Pulmonary Embolism Present on Admission: No
--- NOTE | 2019-05-26 21:27 | PC.NURSE ---
Patient has been A&O, calm and cooperative mostly. Bed alarm on, asked patient to call if he needs to get out of bed. Patient not to happy about having to call when needing to go pee. NIH was at a 1 d/t patient getting couple of the naming list items wrong or some he new but unable to think of the name (siomara and beverley). Per S[facility] LOBATO, patient states he hasnt had a BM for over a week. Will give bowel regimen when ordered.
[2019-05-26] MEDS: BISACODYL 10 MG SUPP PR (21:42)
[2019-05-26] MEDS: HEPARIN 5,000 UNIT/ML VIAL 5000 UNIT SUBCUT (21:42)
[2019-05-26] MEDS: DOCUSATE 100 MG CAPSULE PO (21:42)
[2019-05-26] MEDS: INSULIN GLARGINE 100 UNIT/ML 3ML PEN 8 UNIT SUBCUT (21:43)
[2019-05-27] VITALS (7 sets, daily range): BP systolic 131–167; BP diastolic 77–102; PULSE 89–112; RESP 16–18; TEMP 37.1–37.3; O2SAT 98–100
[2019-05-27] MEDS: SODIUM CHLORIDE 0.9% 1,000 ML 100 ML IV (02:22)
[2019-05-27 05:12] LABS: Hemoglobin A1C% w Est Avg Glu 13.7 % (4.0-6.0)
[2019-05-27] MEDS: DOCUSATE 100 MG CAPSULE PO ×2 (08:32→21:29)
[2019-05-27] MEDS: HEPARIN 5,000 UNIT/ML VIAL 5000 UNIT SUBCUT ×2 (08:32→21:27)
[2019-05-27] MEDS: INSULIN ASPART 100 UNIT/ML INSULN PEN SUBCUT ×4 (08:32→21:28)
--- NOTE | 2019-05-27 10:21 | P.PN_ITS ---
Subjective Subjective Date Patient Seen: 05/27/19 Interval history: Luis Krueger is a 53-year-old male with a past medical history significant for untreated hypertension, hyperlipidemia, and diabetes mellitus type 2, previously insulin using, who had been untreated for many years and was recently restarted on all his medications who presented to ED with and has been experiencing impai red cognition and visual hallucinations. The patient is resting in bed comfortably. He continues to endorse visual hallucinations and delusions which are non threatening and are occurring regularly. He describes his aunt and niece and nephew smoking in a parking lot and seeing a wall from his childhood in his hospital room. He denies ever having hallucinations previously and is unthreatened by them. He previously had a headache the day before which has resolved. He denies auditory halluci nations. He is adopted and does not believe there are any mental health issues on his mother's side of the family and does not know his father's family history. He previously endorses depression related to grief of a relative passing for which he blames his stopping all of his medications several years ago. He denies shortness of breath, chest pain, abdominal pain, nausea, vomiting, fever, chills, dysuria, diarrhea or constipation. He is voiding and eliminating without difficulty. He is up ambulating independently. Exam Vital Signs (past 8 hours): - 05/27/19 04:34 05/27/19 08:17 Temperature 99.1 F 98.8 F Pulse Rate 112 H 99 H Respiratory Rate 18 16 Blood Pressure 151/96 H 156/100 H Pulse Oximetry 100 100 Oxygen Delivery Method Room Air Oxygen Flow Rate 0 Narrative Exam Narrative: General: Older gentleman lying in bed and in no acute distress, well-developed, well-nourished, appropriately interactive. HEENT: Normocephalic, atraumatic. External ears without defect. Pupils equal, round, and reactive to light. Anicteric sclerae, moist conjunctivae, and no lid lag. Oropharynx free of erythema and cobble stoning with moist mucosa. Neck: Supple with full range of motion. No jugular venous distension. No bruits. No lymphadenopathy or thyromegaly. Cardiovascular: Regular rate and rhythm without murmurs, rubs, or gallops appreciated. Pulmonary: Clear to auscultation bilaterally without crackles, wheezes, or rhonchi. Normal respiratory effort with no use of accessory muscles. Abdomen: Soft, bowel sounds present, nontender, nondistended. No suprapubic, CVA or flank tenderness. No hepatosplenomegaly or masses appreciated. Extremities: No clubbing, cyanosis, or edema. Skin: Normal temperature, turgor, and texture; no rash, ulcers, or subcutaneous nodules appreciated. Neurological: Cranial nerves grossly intact. Psychiatric: Normal mood and odd affect. Eyes darting around room. Patient endorses visual hallucinations. No nystagmus. Alert and oriented to person, p lace, and time. Objective Labs Result Diagrams: 05/28/19 05:01 05/28/19 05:01 Labs: Laboratory Results - last 24 hr 05/26/19 05/26/19 05/26/19 09:50 09:50 09:55 ABG pH 7.35 ABG pCO2 36.0 ABG pO2 89 ABG HCO3 20 L ABG Total CO2 21 ABG O2 Saturation 96 ABG Base Excess -6.0 L FiO2 21 Hemoglobin A1c Troponin I < 0.012 TSH 1.67 Urine RBC Urine WBC Urine Bacteria Ur Culture Indicated? U Opiates 300ng/mL cut Ur Oxycodone Screen Urine Methadone Screen Ur Barbiturates Screen U Tricyclic Antidepress Ur Phencyclidine Scrn Ur Amphetamines Screen U Methamphetamines Scrn Ur MDMA Scrn (Ecstasy) U Benzodiazepines Scrn Urine Cocaine Screen U Marijuana (THC) Screen 05/26/19 05/26/19 05/27/19 10:50 10:50 04:54 ABG pH ABG pCO2 ABG pO2 ABG HCO3 ABG Total CO2 ABG O2 Saturation ABG Base Excess FiO2 Hemoglobin A1c 13.7 H Troponin I TSH Urine RBC 0-1/hpf Urine WBC >100/hpf H Urine Bacteria Many (>30) H Ur Culture Indicated? Specimen cultured U Opiates 300ng/mL cut Negative Ur Oxycodone Screen Negative Urine Methadone Screen Negative Ur Barbiturates Screen Negative U Tricyclic Antidepress Negative Ur Phencyclidine Scrn Negative Ur Amphetamines Screen Negative U Methamphetamines Scrn Negative Ur MDMA Scrn (Ecstasy) Negative U Benzodiazepines Scrn Negative Urine Cocaine Screen Negative U Marijuana (THC) Screen Negative Assessment & Plan Assessment & Plan narrative: Luis Krueger is a 53-year-old male with a past medical history significant for untreated hypertension, hyperlipidemia, and diabetes mellitus type 2, previously insulin using, who had been untreated for many years and was recently restarted on all his medications who presented to ED with and has been experiencing impaired cognition and visual hallucinations. 1. Toxic metabolic encephalopathy, acute, present on admission. Active. -The patient has had progressive symptoms for 1 week with visual hallucinations difficulty concentrating and word-finding. Hallucinations are familiar objects including paintings, shelving or plant. Hallucinations are nonthreatening. No prior history or family history of psychiatric disturbance although history limited due to patient being adopted. -CVA ruled out with imaging finding no acute intracranial processes or vascular abnormalities, finding of chronic posterior fossa arachnoid cyst. MRI is normal for age. -Patient is hyperglycemic with blood sugar 460 with ketones but no acidosis or anion gap. -Symptoms may be related to urinary tract infection but as patient is being treated symptoms are persistent therefore less likely. -Continued neuro checks. -Continued PT and OT evaluation and treatment. 2. Acute urinary tract infection, present on admission. Resolving. -Patient with markedly elevated blood sugar and untreated diabetes until 1 week ago having been started on metformin. -Urine culture preliminarily growing 3 gram + colonies and one isolated and re- incubated. -Continued ceftriaxone 2 g IV every 24 hours. 3. Type 2 diabetes with hyperglycemia, chronic, present on admission. Active. -Patient with long history of diabetes has been untreated until 1 week ago. -He was recently restarted on metformin and has an elevated creatinine 1.3 and EGFR of 58.2. No evidence of metformin toxicity. -Patient states has not been eating well over the last week related to abdominal fullness, no bowel movement for 1 week. -Blood glucose was 460 on admission with no acidosis or anion gap. He does have elevated ketones at 4.02. Patient received 5 units of insulin subcu x1 followed by 10 units of regular insulin IV with decrease in blood sugar to 240s. -Continue ACHS blood glucose checks and low-dose correctional scale insulin. -Continue Lantus increased from 8 units daily at bedtime to 15 units twice daily. 4. Probable acute kidney injury verses chronic kidney disease, present on admission. Resolved. -Patient reports frequent urination with no burning, hematuria or flank pain. Patient appears clinically dehydrated. -Initial creatinine 1.3. Creatinine now normal at 1.0. -He has had diabetes and hypertension that have been on treated for years presenting with a blood pressure of 199/111. -Positive proteinuria. -Avoid nephrotoxic agents. -Continued IV fluids until adequately hydrated then discontinued. -Continue to monitor renal function daily. 5. Constipation, present on admission, active. -Patient reports not moving his bowels for 1 week. He states his stool has been hard and difficult to pass consistent with dehydration as mentioned above. -Received Dulcolax suppository x1 now and daily as needed. Continue docusate 100 mg twice daily and miralax 17 g daily. -Continued IV fluids until adequately hydrated then discontinued. Code status: Full code. VTE prophylaxis: SCDs, Heparin. Disposition: Patient likely to discharge tomorrow once urine culture identification and sensitivities resulted. Quality VTE Deep Vein Thrombosis/Pulmonary Embolism Present on Admission: No
[2019-05-27] MEDS: hydroCHLOROthiazide 12.5 MG CAPSULE PO (12:07)
[2019-05-27] MEDS: lisinopriL 20 MG TABLET 40 MG PO (12:07)
[2019-05-27] MEDS: CEFTRIAXONE 2 GM/50 ML FROZ.PIGGY IV (12:07)
[2019-05-27 12:21] LABS: Add Manual Diff / Slide Review NO; Basophils Absolute Auto 200 /uL (0-100); Basophils Percent Auto 1.3 % (0-2); Eosinophils Absolute Auto 0 /uL (0-450); Eosinophils Percent Auto 0.2 % (2-4); Hematocrit 36.9 % (41-53); Hemoglobin 12.4 g/dL (13.5-17.5); Lymphocytes Absolute Auto 1800 /uL (1100-4500); Lymphocytes Percent Auto 14.3 % (25-40); Mean Corpuscular HGB Conc 33.4 % (30-36); Mean Corpuscular Hemoglobin 28.2 PG (26-34); Mean Corpuscular Volume 84.5 fL (80-100); Monocytes Absolute Auto 800 /uL (0-900); Monocytes Percent Auto 6.7 % (3-14); Neutrophils Absolute Auto 9500 /uL (1500-7000); Neutrophils Percent Auto 77.5 % (50-75); Platelet Count 290 X10^3/uL (150-400); Red Blood Cell Count 4.37 X10^6/uL (4.5-5.9); Red Cell Distribution Width 14.6 % (11.6-14.8); White Blood Cell Count 12.3 X10^3/uL (4.5-11.0)
[2019-05-27 12:33] LABS: Blood Urea Nitrogen 26 mg/dL (9-20); Calcium 8.5 mg/dL (8.4-10.2); Carbon Dioxide 22 mmol/L (22-32); Chloride 96 mmol/L (98-107); Estimated Glomerular Filt Rate > 60.0 mL/min (>60); Glucose 361 mg/dL (70-100); HEMOLYSIS < 15 (0-50); Magnesium 2.2 mg/dL (1.6-2.3); Sodium 131 mmol/L (137-145)
--- NOTE | 2019-05-27 12:34 | SLP.IPNOTE ---
Consulted with Dr. Faustin. Pt being treated for UTI. Will withhold tx/cognitive evaluation for today and assess when pt is more to baseline function.
--- NOTE | 2019-05-27 12:41 | PT.IIE ---
Surgical History (Last Updated 05/26/19 @ 23:17 by LUIS ALFREDO Loomis) No pertinent past surgical history (Acute) Medical History (Last Updated 05/26/19 @ 23:17 by LUIS ALFREDO Loomis) Diabetes (Acute) Dyslipidemia (Acute) Hypertension (Acute) Palpitations (Acute) Physical Therapy Inpatient Evaluation/Re-Eval M1 PT/OT-IP Prior Functional Status Start: 05/27/19 08:42 Freq: NEEDED Status: Active Protocol: Document 05/27/19 12:15 AW (Rec: 05/27/19 12:41 AW [email or web address]) Medical Review Prior Functional Status Medical History Reviewed Yes Communication WNL. Pt is an effective verbal communicator. Mobility and Gait Independent without use of assistive device and no limit to distance or time. Pt has no history of falls. Activities of Daily Living and IADL's Independent Social History Household Members family Living Arrangements House Number of Floors (Floors) Two Floors Number of Stairs To Enter/Railing? 2-3 PIOTR without railing. 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 Home Environment Standard Height Toilet,Tub/ Shower Home Equipment Shower Seat with Backrest Additional Social History Comment Pt lives with his three brothers. He works seasonally doing [employer]ing work at a [employer]. He is not currently working. M2 PT-IP Current Condition Start: 05/27/19 08:42 Freq: NEEDED Status: Active Protocol: Document 05/27/19 12:15 AW (Rec: 05/27/19 12:41 AW [email or web address]) Physical Therapy Current Condition Current Condition Evaluation Date 05/27/19 Treatment Diagnosis metabolic encephalopathy; UTI; impaired communication and balance Onset Date 05/25/19 Precautions Other Precautions hyperglycemia Weight Bearing Status Weight Bearing Status Full Weight Bearing M3 PT-IP Subjective Start: 05/27/19 08:42 Freq: NEEDED Status: Active Protocol: Document 05/27/19 12:15 AW (Rec: 05/27/19 12:41 AW [email or web address]) Subjective Physical Therapy Visit Type Type Initial Evaluation Visit Start Time 11:44 Visit Stop Time 12:09 Total Visit Minutes 25 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 0 Physical Therapy Visit Comments Patient Comments Pt states he is feeling well and is willing to participate with PT Patient Goals Pt hopes to go home Therapy Pain Assessment Pain When Pain Assessed During Mobility Pain Present Pain Present Denied Pain M4 PT-IP Mobility and Gait Start: 05/27/19 08:42 Freq: NEEDED Status: Active Protocol: Document 05/27/19 12:15 AW (Rec: 05/27/19 12:41 AW [email or web address]) PT-Bed Mobility Assessment Supine to Sit Supine to Sit Independent Scooting Scooting to Edge of Bed Independent PT-Transfer Assessment Sit to and From Stand Sit to and from Stand Independent Equipment Transfer Assistive Device None,Gait Belt Transfers Transfer Destination Chair Transfer Technique pt amulated without AD Transfer Ability Level of Assist Independent Comments Mobility Comments Pt sitting up in bed upon PT arrival. He required no assist for mobility. Gait Assessment Gait Gait Assistance Required: Standby Assistance Distance (Feet) 250 Assistive Devices Assistive Device None,Gait Belt Orthotic/Prosthetic Devices or Brace: No Gait Deviations General Gait Pattern Decreased Feet Clearance Factors Limiting Gait Function Factors Limiting Gait Function Poor Balance Comments Gait Comments Pt ambulated in the halls with SBA needed only for line/IV management. He completed modified 4-item DGI with score of 11/12 (1 point deducted for path deviation with horizontal head turns). Gait speed was good and pt was otherwise steady of his feet. Stair Climbing Assessment Comments Stair Climbing Comments Not assessed. PT-Balance Assessment Sitting Balance and Reactions Static Sitting Balance Ability Normal Dynamic Sitting Balance Ability Normal Standing Balance and Reactions Static Standing Balance Ability Normal Dynamic Standing Balance Ability Good Device Used no AD Functional Assessments Functional Tests Dynamic Gait Index mDGI 11/12 M5 PT-IP Objective Assessments Start: 05/27/19 08:42 Freq: NEEDED Status: Active Protocol: Document 05/27/19 12:15 AW (Rec: 05/27/19 12:41 AW [email or web address]) Orientation Orientation/Cognition Level of Alertness Alert Orientation Name,Month,Situation Language Function Ability Word Finding Difficulties Safety Awareness Understands Safety Issues Memory Description Short Term Impaired Comments Pt unable to recall any of three words he was asked to remember (apple, table, sybil ) after five minutes. He reported he knew where he was but he was unable to say [facility] or [place] . Pt reported hallucinations always on his right side but that he knows they are not real. The hallucinations have not changed in frequency Gross Range of Motion Lower Extremity ROM Assessment Within Functional Limits Strength Lower Extremity Strength Assessment Within Functional Limits Comments Strength Comments BLE grossly 5/5 Coordination Assessment Gross Coordination Gross Coordination Impaired Assessment Finger to Nose Test Minimal Impairment Coordination Comments Missed target <3 cm on left side finger to nose with eyes closed Sensation Assessment Sensation Gross Sensation WNL Muscle Tone Muscle Tone WNL Yes Other Assessments Other Other Assessments Visual tracking and convergence normal. No nystagmus or abnormal saccades . M6 PT-IP Treatment Start: 05/27/19 08:42 Freq: NEEDED Status: Active Protocol: Document 05/27/19 12:15 AW (Rec: 05/27/19 12:41 AW [email or web address]) Physical Therapy Treatment Education Education Provided Precautions,Safety Other Treatments Other Treatment Performed Provided education on role of PT, plan of care, safety in the home. M7 PT-IP Assessment and Plan Start: 05/27/19 08:42 Freq: NEEDED Status: Active Protocol: Document 05/27/19 12:15 AW (Rec: 05/27/19 12:41 AW [email or web address]) PT Summary Assessment and Plan Potential Rehabilitation Potential Excellent Status of Condition at Evaluation Stable Summary Impairments Balance Assessment Summary Luis is a 53 yo man seen for PT evaluation on the day after admission with toxic metabolic encephalopathy possibly related to UTI. He had reported visual hallucinations and difficulty with speech. At baseline, he ambulates independently without device and reports no history of falls. On evaluation, pt demonstrated poor short term memory, evidence of word-finding difficulty (though with clear speech), mildly impaired left- sided coordination, and mildly impaired dynamic balance. He does not appear to have specific PT needs at this time . PT will complete the order but will remain available if the need for another consult arises or if pt condition changes. Frequency of Treatment Frequency Of Treatment Discharge Discharge Recommendations PT Discharge Recommendations Home Transportation Needs at Discharge Private Vehicle
[2019-05-27 13:01] LABS: Procalcitonin 0.26 ng/mL (<0.5)
--- NOTE | 2019-05-27 14:22 | OT.IP.EVAL ---
Past Medical History (Last Updated 05/26/19 @ 23:17 by LUIS ALFREDO Loomis) Diabetes (Acute) Dyslipidemia (Acute) Hypertension (Acute) Palpitations (Acute) Surgical History (Last Updated 05/26/19 @ 23:17 by LUIS ALFREDO Loomis) No pertinent past surgical history (Acute) Occupational Therapy Inpatient Evaluation/Re-Eval M1 PT/OT-IP Prior Functional Status Start: 05/27/19 08:42 Freq: NEEDED Status: Active Protocol: Document 05/27/19 13:46 AMRIT (Rec: 05/27/19 14:22 PJ [id number]) Medical Review Prior Functional Status Medical History Reviewed Yes Diet/Fluid Consistency Regular Communication WNL. however, pt reports recent difficulty with word finding Mobility and Gait Independent without use of assistive device and no limit to distance or time. Pt has no history of falls. Activities of Daily Living and IADL's Independent with all self care , IADLS, driving. 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 Pt manages his own finances and medications. He reports he stopped taking his medications after his father and pt was feeling depressed. Pt states he can afford his medications as he gets them through the [facility]. Prior Functional Level (Other details) Pt lives with his three brothers. One of his brothers does the cooking and cleaning. Pt does most of the grocery shopping. Social History Household Members family Living Arrangements House Number of Floors (Floors) 3 or More Floors Number of Stairs To Enter/Railing? 2-3 PIOTR without railing. 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 Additional Social History Comment Seasonally employed M2 OT-IP Current Condition Start: 05/27/19 13:59 Freq: Status: Active Protocol: Document 05/27/19 13:46 [email or web address] (Rec: 05/27/19 14:22 PJ [id number]) Occupational Therapy Current Condition Current Condition Evaluation Date 05/27/19 Treatment Diagnosis assess self care for d/c home Diagnosis Onset Date 05/26/19 M3 OT- IP Subjective and Pain Start: 05/27/19 13:59 Freq: Status: Active Protocol: Document 05/27/19 13:46 PJM (Rec: 05/27/19 14:22 PJM [id number]) OT- Subjective Occupational Therapy Visit Type Type Initial Evaluation Visit Start Time 13:28 Visit Stop Time 13:46 Total Visit Minutes 18 Notes Pt's brother Domo here this session Occupational Therapy Visit Comments Patient Comments I hope I get to go home today. Patient/Caregiver Goals to go home and resume independent living OT Pain Assessment Pain When Pain Assessed After Treatment Pain Present Pain Present Denied Pain M4 OT- IP ADL's Start: 05/27/19 13:59 Freq: Status: Active Protocol: Document 05/27/19 13:46 PJM (Rec: 05/27/19 14:22 PJM [id number]) OT [id number] General Evaluation Self-Feeding Ability Independent OT ADL-Grooming General Evaluation Grooming Ability Standby Assistance Comments OT Grooming Comments standing at sink OT ADL-Oral Care General Eval Oral Care Ability Independent Comments Oral Care Comments standing at sink OT ADL-Dressing General Eval Upper Body Dressing Ability Independent Lower Body Dressing Ability Independent Areas Needing Assistance Pants/Shorts,Socks,Shoes OT ADL-Toileting General Evaluation Toileting Ability Independent OT ADL-Bathing Comments OT Bathing Comments pt declines shower this session; no new deficits identified that would interfere M5 OT- IP IADL's Start: 05/27/19 13:59 Freq: Status: Active Protocol: Document 05/27/19 13:46 PJM (Rec: 05/27/19 14:22 PJ [id number]) OT-Instrumental Activities of Daily Living Deficits IADL Deficits Identified No Deficits Medication Management Medication Management No Deficits Identified Money Management Money Management No Deficits Identified Meal Preparation Meal Preparation No Deficits Identified Psych Arnp Psych Arnp No Deficits Identified Driving Driving Caregiver Provides Assist M6 OT- IP Functional Cognition Start: 05/27/19 13:59 Freq: Status: Active Protocol: Document 05/27/19 13:46 PJM (Rec: 05/27/19 14:22 PJ [id number]) Cognitive Factors Limiting Selfcare Function Cognitive Ability Level of Alertness Alert Patient Orientation Name,Age,Birthday,Month,Year, Day of Week,Place,Situation Attention Span Ability Capable of Focused Attention, Capable of Sustained Attention Ability to Follow Commands Able to Follow Multi-Step Commands Safety Awareness No Deficits Noted Cognitive Comments Cognitive Assessment Comments See S.T. notes for assessment of language and cognition. Occasional word finding problems noted x3 this session. Pt needs min cues for exact date. OT- Vision and Hearing OT- Hearing Assessment OT- Hearing Assessment WFL OT- Vision Assessment Visual Acuity WFL,Glasses For Reading Visual Attentiveness WFL Occular Pursuits WFL Visual Paloma[place] WFL Diplopia Absent Visual Spacial Neglect Not Applicable M7 OT- IP Mobility and Balance Start: 05/27/19 13:59 Freq: Status: Active Protocol: Document 05/27/19 13:46 PJM (Rec: 05/27/19 14:22 PJM [id number]) OT- Bed Mobility Assessment Rolling Level of Assistance Independent Supine to Sit Supine to Sit Assist Independent Sit to Supine Sit to Supine Assist Independent Scooting Scooting to Edge of Bed Independent OT-Transfer Assessment Sit to and From Stand Sit to and from Stand Independent Transfers Transfer Ability Independent Technique Transfer Destination Bed Transfer Technique Stand Step Pivot Devices Transfer Assistive Devices None OT- Gait Assessment Gait Gait Assistance Required: Independent Distance (Feet) 25 Assistive Devices Assistive Device None Comments Gait Ability Comments Pt up ad bettye in room without a device. P.T. has evaluated pt and cleared him for independent ambulation without a device. OT- Balance Assessment Sitting Balance and Reactions Static Sitting Balance Ability Good Dynamic Sitting Balance Ability Good Standing Balance and Reactions Static Standing Balance Ability Good Dynamic Standing Balance Ability Good Comments Other Balance Tests/Deviations/Treatment During mobility in room and : standing at sink for grooming. See P.T. notes for objective balance test results. M8 OT- IP Objective Assessments Start: 05/27/19 13:59 Freq: Status: Active Protocol: Document 05/27/19 13:46 PJM (Rec: 05/27/19 14:22 PJM [id number]) OT Gross Range of Motion Upper Extremity Range of Motion Assessment Within Functional Limits OT Strength Upper Extremity Strength Assessment Within Functional Limits Hand Supervisor Malted Milk Strength Hand Dominance Right OT- Coordination Assessment Upper Extremity Finger to Nose Test Within Functional Limits Finger Tapping Test Within Functional Limits OT-Muscle Tone Assessment Muscle Tone WNL Yes OT Sensation Assessment Comments Summary Comments WNL BUE Edema Edema Absent M9 OT- IP Assessment and Plan Start: 05/27/19 13:59 Freq: Status: Active Protocol: Document 05/27/19 13:46 PJM (Rec: 02/25/20 14:22 [email or web address] [id number]) OT Summary Assessment and Plan Potential Analytic Complexity at Evaluation Low Summary Progress Towards Goals Safe For Discharge Assessment Summary Low complexity OT assessment completed on this 53 yr old male admitted with confusion/R visual field hallucinations, word finding difficulties. MRI negative. CT showed incidental finding of chronic L posterior fossa arachnoid cyst. DX: toxic encephalopathy from UTI with uncontrolled diabetes (BG 460 on admit), and uncontrolled HTN (199/111). Pt reports that he stopped taking his medications around the time his father as he was feeling depressed. He states he can afford his medications as he obtains them at the [facility] at a low cost. Pt alert and oriented except needs min cues for exact date. No new deficits identified in vision, BUE function , functional mobility or self care skills and he has been up in room independently without a device. Pt had 3 episodes of mild word finding deficits this session. See S.T. notes for further assessment of language and cognition. Suspect pt is at his baseline level of function from OT standpoint. No OT goals identified for this admission. Frequency of Treatment Frequency Of Treatment Discharge Discharge Recommendations OT Discharge Recommendations Home Transportation Needs at Discharge Private Vehicle
[2019-05-27] MEDS: INSULIN GLARGINE 100 UNIT/ML 3ML PEN 8 UNIT SUBCUT (21:27)
[2019-05-27] MEDS: AMLODIPINE 5 MG TABLET PO (21:29)
[2019-05-28] VITALS: BP 142/85; PULSE 88; RESP 20; TEMP 36.9; O2SAT 100
--- NOTE | 2019-05-28 02:26 | PC.NURSE ---
Patient seen and assessed at 2344. Is oriented although was unsure of day of month. Breath sounds CTA with RA sat of 100%. HRR; telemetry reading was SR. Denies nausea. BT present and abdomen is soft. Voiding per urinal; denies dysuria, frequency or urgency. Is independent with mobility. Denies pain. Refusing to wear SCD's despite information re DVT: prevention so reminded to ankle wave when awake. Fall risk score is moderate; declines use of bed alarm stating he is steady and denies dizziness/light headedness so reminded that should symptoms occur when getting out of bed he needs to call for staff assist and he verbalizes agreement.
[2019-05-28 04:00] VITALS: BP 159/96; PULSE 88; RESP 20; TEMP 37.1; O2SAT 100
[2019-05-28 05:15] LABS: Add Manual Diff / Slide Review NO; Basophils Absolute Auto 0 /uL (0-100); Basophils Percent Auto 0.4 % (0-2); Eosinophils Absolute Auto 100 /uL (0-450); Eosinophils Percent Auto 0.8 % (2-4); Hematocrit 36.8 % (41-53); Hemoglobin 12.5 g/dL (13.5-17.5); Lymphocytes Absolute Auto 1800 /uL (1100-4500); Lymphocytes Percent Auto 19.4 % (25-40); Mean Corpuscular Hemoglobin 28.6 PG (26-34); Mean Corpuscular Volume 83.9 fL (80-100); Monocytes Absolute Auto 500 /uL (0-900); Monocytes Percent Auto 5.5 % (3-14); Neutrophils Absolute Auto 6700 /uL (1500-7000); Neutrophils Percent Auto 73.9 % (50-75); Platelet Count 289 X10^3/uL (150-400); Red Blood Cell Count 4.39 X10^6/uL (4.5-5.9); Red Cell Distribution Width 14.7 % (11.6-14.8); White Blood Cell Count 9.1 X10^3/uL (4.5-11.0)
[2019-05-28 05:23] LABS: Blood Urea Nitrogen 24 mg/dL (9-20); Calcium 9.3 mg/dL (8.4-10.2); Carbon Dioxide 22 mmol/L (22-32); Chloride 95 mmol/L (98-107); Estimated Glomerular Filt Rate > 60.0 mL/min (>60); Glucose 317 mg/dL (70-100); HEMOLYSIS < 15 (0-50); Sodium 133 mmol/L (137-145)
[2019-05-28 06:15] LABS: Thyroid Stimulating Hormone 2.04 uIU/mL (0.47-4.68)
[2019-05-28 08:00] VITALS: BP 142/84; PULSE 91; RESP 16; TEMP 37.1; O2SAT 100
[2019-05-28 09:20] LABS: Ethanol (ETOH) < 10 mg/dL
[2019-05-28] MEDS: INSULIN ASPART 100 UNIT/ML INSULN PEN SUBCUT ×2 (09:20→13:14)
[2019-05-28] MEDS: INSULIN GLARGINE 100 UNIT/ML 3ML PEN 10 UNIT SUBCUT (09:20)
[2019-05-28] MEDS: SODIUM CHLORIDE 0.9% FLUSH 10 ML IV (09:21)
[2019-05-28] MEDS: HEPARIN 5,000 UNIT/ML VIAL 5000 UNIT SUBCUT (09:23)
[2019-05-28] MEDS: DOCUSATE 100 MG CAPSULE PO (09:23)
[2019-05-28] MEDS: hydroCHLOROthiazide 12.5 MG CAPSULE PO (09:23)
[2019-05-28] MEDS: lisinopriL 20 MG TABLET 40 MG PO (09:23)
[2019-05-28 09:38] LABS: Ethanol (ETOH) < 10 mg/dL
[2019-05-28 10:07] LABS: Procalcitonin 0.16 ng/mL (<0.5)
--- NOTE | 2019-05-28 10:19 | P.DS_ITS ---
History of Present Illness History of Present Illness Date Patient Seen: 05/26/19 Chief complaint: type 2 diabetic, out of it, hallucinations Narrative: Written By Rusty LOBATO: Mr. Luis Krueger is a 53-year-old male patient with a history significant for diabetes, hyperlipidemia and hypertension who presents to the ER with complaints of confusion and hallucinations. Patient has the above history but quit taking medications many years ago. Patient states he had been progressively feeling poorly so he sought medical care at the [facility] 1 week ago and was restarted on metformin 1000 mg twice daily, atorvastatin, hydrochlorothiazide and lisinopril. The patient states that after restarting medications is when he began experiencing hallucinations. His hallucinations are visual in nature and he describes them as familiar objects from his past and that appear in his right peripheral vision of both eyes.. He will look away and then the back again and will be gone. The patient states over the last day or 2 he has had increasing difficulty expressing himself including word-finding difficulties. The patient denies complaints headaches or other visual changes. Reports no difficulty with speech or swallowing, numbness, weakness or disequilibrium. He has had no recent complaints of fevers or chills nasal congestion or sore throat. No chest pain but endorses episodic palpitations. He has no shortness of breath cough or wheezing. He has had no abdominal pain the way does report abdominal discomfort that he relates to not moving his bowels for 1 week. He has had no nausea vomiting. He endorses frequent urination without burning or urgency or hematuria. The patient describes himself as a altered private person and avoids medical care. Upon arrival patient has a temperature 97.8?, and tachycardic 113, hypertensive 199/111 that improves to 151/91, respirations of 18 and saturation 99% on room air. The patient is evaluated following stroke protocol with CT and CTA of the head and neck being unremarkable except for a chronic posterior fossa arachnoid cyst. Her the patient underwent MR stroke protocol with results finding no ac [place] injury and normal for patient age. On laboratory analysis patient has an elevated white count of 16.0 with left shift, hemoglobin of 14.9 hematocrit of 43.9 and platelets of 434. On coagulation is a PT of 13.4, INR of 1.2 and PTT of 32. On chemistries the patient has a low sodium at 132 and a potassium of 4.5 his BUN is 31 with a creatinine of 1.3, the patient's LFTs are unremarkable. His nonfasting glucose is 460. The patient has ketosis at 4.02. ABG is obtained finding a pH 7.35, pCO2 36, PO2 of 89, bicarb 20 with base excess -6 saturation calculated 96% on 21% oxygen. Troponin is negative at less than 0.012. And TSH is within normal at 1.67. A screening urinalysis is obtained finding greater than 100 wbc's and many bacteria and is reflex to culture the patient is admitted to the medicine service for toxic encephalopathy believe related to UTI with hyperglycemia and acute kidney injury. Discharge Providers Provider Date of admission: 05/26/19 12:46 Discharge Date: 05/28/19 Consults: 05/26/19 14:19 Consult to Occupational Therapy Evaluate & Treat Comment: Physician Instructions: Evaluate and treat Consult to Physical Therapy Evaluate & Treat Comment: Physician Instructions: Evaluate and Treat Consult to Speech Therapy Evaluate & Treat Comment: Physician Instructions: Evaluate and treat Discharge provider: Teetee Faustin DO Summary Hospital Course Discharge Diagnosis: 1. Toxic metabolic encephalopathy, acute, present on admission. Active. 2. Acute urinary tract infection, present on admission. Resolving. 3. Type 2 diabetes with hyperglycemia, chronic, present on admission. Active. 4. Acute kidney injury, present on admission. Resolved. 5. Acute constipation, present on admission. Resolved. Hospital Course: Luis Krueger is a 53-year-old male with a past medical history significant for untreated hypertension, hyperlipidemia, and diabetes mellitus type 2, previously insulin using, who had been untreated for many years and was recently restarted on all his medications who presented to ED with and has been experiencing impaired cognition and visual hallucinations. 1. Toxic metabolic encephalopathy, acute, present on admission. Active. -The patient has had progressive symptoms for 1 week with visual hallucinations difficulty concentrating and word-finding. Hallucinations are familiar objects including paintings, shelving or plant. Hallucinations are nonthreatening. No prior history or family history of psychiatric disturbance although history limited due to patient being adopted. -CVA ruled out with imaging finding no acute intracranial processes or vascular abnormalities, finding of chronic posterior fossa arachnoid cyst. MRI is normal for age. -Patient is hyperglycemic with blood sugar 460 with ketones but no acidosis or a nion gap. -Symptoms may be related to urinary tract infection but as patient is being treated symptoms are persistent therefore less likely. -There are case reports of lisinopril causing hallucinations. Discontinued lisinopril and switched to amlodipine 10 mg daily. -Hyperglycemia can cause hallucinations but at significant elevation and in the context of HHS or DKA. -Continued neuro checks. -Continued PT and OT evaluation and treatment. -If symptoms persist despite treatment of UTI, improvement in hyperglycemia, and discontinuation of ACEI then recommend pyschiatric evaluation. 2. Acute urinary tract infection, present on admission. Resolving. -Patient with markedly elevated blood sugar and untreated diabetes until 1 week ago having been started on metformin. -Urine culture preliminarily growing 3 gram + colonies and one isolated and re- incubated and grew pansensitive staph epidermidis. -Continued ceftriaxone 2 g IV every 24 hours x 3 doses. Discharged on ciprofloxacin 500 mg twice daily for 4 additional days to complete 7 days total. 3. Type 2 diabetes with hyperglycemia, chronic, present on admission. Active. -Patient with long history of diabetes has been untreated until 1 week ago. -He was recently restarted on metformin and has an elevated creatinine 1.3 and EGFR of 58.2. No evidence of metformin toxicity. -Patient states has not been eating well over the last week related to abdominal fullness, no bowel movement for 1 week. -Blood glucose was 460 on admission with no acidosis or anion gap but elevated ketones at 4.02. Patient received 5 units of insulin subcu x1 followed by 10 units of regular insulin IV with decrease in blood sugar to 240s. -Continued ACHS blood glucose checks and low-dose correctional scale insulin. -Continued Lantus 15 units twice daily and restarted metformin at discharge. Provided diabetic and insulin education. -Consulted public speaking instructor and we appreciate her time and recommendations. Highly recommend outpatient referral to DSME and public speaking instructor. 4. Acute kidney injury, present on admission. Resolved. -Patient reports frequent urination with no burning, hematuria or flank pain. Patient appears clinically dehydrated. -Initial creatinine 1.3. Creatinine now normal at 1.0. -He has had diabetes and hypertension that have been on treated for years presenting with a blood pressure of 199/111. -Positive proteinuria. -Avoided nephrotoxic agents. -Continued IV fluids until adequately hydrated then discontinued. -Continued to monitor renal function daily. 5. Acute constipation, present on admission. Resolved. -Patient reports not moving his bowels for 1 week. He states his stool has been hard and difficult to pass consistent with dehydration as mentioned above. -Received Dulcolax suppository x1 now and daily as needed. Continued docusate 100 mg twice daily and miralax 17 g daily. -Continued IV fluids until adequately hydrated then discontinued. Exam Vital Signs (past 8 hours): - 05/28/19 04:00 05/28/19 08:00 Temperature 98.8 F 98.8 F Pulse Rate 88 91 H Respiratory Rate 20 16 Blood Pressure 159/96 H 142/84 H Pulse Oximetry 100 100 Oxygen Delivery Method Room Air Oxygen Flow Rate 0 Narrative Exam Narrative: General: Older gentleman lying in bed and in no acute distress, well-developed, well-nourished, appropriately interactive. HEENT: Normocephalic, atraumatic. External ears without defect. Pupils equal, round, and reactive to light. Anicteric sclerae, moist conjunctivae, and no lid lag. Oropharynx free of erythema and cobble stoning with moist mucosa. Neck: Supple with full range of motion. No jugular venous distension. No bruits. No lymphadenopathy or thyromegaly. Cardiovascular: Regular rate and rhythm without murmurs, rubs, or gallops appreciated. Pulmonary: Clear to auscultation bilaterally without crackles, wheezes, or rhonchi. Normal respiratory effort with no use of accessory muscles. Abdomen: Soft, bowel sounds present, nontender, nondistended. No suprapubic, CVA or flank tenderness. No hepatosplenomegaly or masses appreciated. Extremities: No clubbing, cyanosis, or edema. Skin: Normal temperature, turgor, and texture; no rash, ulcers, or subcutaneous nodules appreciated. Neurological: Cranial nerves grossly intact. Psychiatric: Normal mood and odd affect. Eyes darting around room. Patient endorses visual hallucinations and delusions that are non-threatening. No nystagmus. Alert and oriented to person, place, and time. Objective Labs Result Diagrams: 05/28/19 05:01 05/28/19 05:01 Labs: Laboratory Results - last 24 hr 05/26/19 05/27/19 05/27/19 09:50 04:54 04:54 WBC RBC Hgb Hct MCV MCH MCHC RDW Plt Count Neut % (Auto) Lymph % (Auto) [place] % (Auto) Eos % (Auto) Baso % (Auto) Neut # (Auto) Lymph # (Auto) [place] # (Auto) Eos # (Auto) Baso # (Auto) Sodium 131 L Potassium 5.0 Chloride 96 L Carbon Dioxide 22 BUN 26 H Creatinine 1.00 Estimated GFR > 60.0 BUN/Creatinine Ratio 26.0 H Glucose 361 H Calcium 8.5 Magnesium Procalcitonin 0.26 TSH Ethyl Alcohol < 10 05/27/19 05/27/19 05/28/19 04:54 04:59 05:01 WBC 12.3 H 9.1 RBC 4.37 L 4.39 L Hgb 12.4 L 12.5 L Hct 36.9 L 36.8 L MCV 84.5 83.9 MCH 28.2 28.6 MCHC 33.4 34.0 RDW 14.6 14.7 Plt Count 290 289 Neut % (Auto) 77.5 H 73.9 Lymph % (Auto) 14.3 L 19.4 L [place] % (Auto) 6.7 5.5 Eos % (Auto) 0.2 L 0.8 L Baso % (Auto) 1.3 0.4 Neut # (Auto) 9500 H 6700 Lymph # (Auto) 1800 1800 [place] # (Auto) 800 500 Eos # (Auto) 0 100 Baso # (Auto) 200 H 0 Sodium Potassium Chloride Carbon Dioxide BUN Creatinine Estimated GFR BUN/Creatinine Ratio Glucose Calcium Magnesium 2.2 Procalcitonin TSH Ethyl Alcohol 05/28/19 05/28/19 05/28/19 05:01 05:01 05:01 WBC RBC Hgb Hct MCV MCH MCHC RDW Plt Count Neut % (Auto) Lymph % (Auto) [place] % (Auto) Eos % (Auto) Baso % (Auto) Neut # (Auto) Lymph # (Auto) [place] # (Auto) Eos # (Auto) Baso # (Auto) Sodium 133 L Potassium 4.0 Chloride 95 L Carbon Dioxide 22 BUN 24 H Creatinine 1.00 Estimated GFR > 60.0 BUN/Creatinine Ratio 24.0 H Glucose 317 H Calcium 9.3 Magnesium Procalcitonin 0.16 TSH 2.04 D Ethyl Alcohol 05/28/19 05:01 WBC RBC Hgb Hct MCV MCH MCHC RDW Plt Count Neut % (Auto) Lymph % (Auto) [place] % (Auto) Eos % (Auto) Baso % (Auto) Neut # (Auto) Lymph # (Auto) [place] # (Auto) Eos # (Auto) Baso # (Auto) Sodium Potassium Chloride Carbon Dioxide BUN Creatinine Estimated GFR BUN/Creatinine Ratio Glucose Calcium Magnesium Procalcitonin TSH Ethyl Alcohol < 10 Discharge Plan Discharge Plan Patient Disposition: Home Discharge comment: You are being discharged home. You have a urinary tract infection. You have been prescribed ciprofloxacin 500 mg twice daily for 4 additional days to finish treatment of your urinary tract infection. You did not have a stroke. It is unclear what is causing your hallucinations. It may be due to your urinary tract infection versus high blood sugar versus lisinopril for which there are several case reports of hallucinations caused by lisinopril. Your lisinopril has been discontinued. You have been prescribed amlodipine 5 mg daily in addition to your hydrochlorothiazide 12.5 mg daily to help control your blood pressure. You have been started on Lantus 10 units twice daily. Please keep a blood glucose log, including 1 measurement fasting and 3 measurements 2 hours after meals (breakfast, lunch, and dinner), and bring this log to all of your doctor's appointment. Continue metformin 1000 mg twice daily. You should have your eyes checked at least once a year and your feet checked twice a year. If your hallucinations do not subside after treatment of UTI, better control of your blood glucose, and discontinuation of your lisinopril then would recommend referral to psychiatry to evaluate you for underlying mental health disorder. Please follow-up with your primary care provider regarding your hospitalization in the next 1 week. Discharge orders & Medications Prescriptions: New amlodipine [Norvasc] 5 mg Tablet 5 mg PO DAILY Qty: 30 RF: 0 glucose 4 gram tablet,chewable 4 gram PO Q15M PRN (Reason: hypoglycemia) Qty: 14 RF: 0 (DME) blood-glucose meter [Glucocard 01 Meter] Kit See Rx Instructions .ROUTE .MEDSUPPLY Qty: 1 RF: 0 Continued atorvastatin 40 mg Tablet 40 mg PO DAILY RF: 0 metformin 1,000 mg Tablet 1,000 mg PO BID RF: 0 hydrochlorothiazide 12.5 mg Capsule 12.5 mg PO QAM RF: 0 aspirin 81 mg Tablet,Chewable 81 mg PO DAILY RF: 0 Discontinued lisinopril 40 mg Tablet 40 mg PO DAILY RF: 0 No Action Lantus Solostar U-100 Insulin 100 unit/mL (3 mL) insulin pen 28 unit SUBCUT BID 30 Days Qty: 16.8 RF: 0 Diet/Activity/Treatments Diet: Carb-consistent/Diabetic, Low-fat, Low-sodium and Low-cholesterol Activity: Activity as tolerated Visit Report/Discharge Packet Instructions: DI for Urinary Tract Infection (UTI), DI for Hypoglycemia, DI for Psychosis, Insulin Glargine (By injection) Discharges patient from system. Discharge Date/Time: 05/28/19 14:12 Quality VTE Deep Vein Thrombosis/Pulmonary Embolism Present on Admission: No
[2019-05-28] MEDS: AMLODIPINE 5 MG TABLET PO (11:10)
[2019-05-28] MEDS: CEFTRIAXONE 2 GM/50 ML FROZ.PIGGY IV (11:10)
[2019-05-28] MEDS: METFORMIN HCL 500 MG TABLET 1000 MG PO (11:10)
[2019-05-28 12:00] VITALS: BP 145/80; PULSE 90; RESP 16; TEMP 36.6; O2SAT 100
--- NOTE | 2019-05-28 12:45 | CM.DANOTE ---
DCP Assessment: EMR Reviewed: Patient is a 53 year old male admitted to the care of the hospitalist team for altered mental status. Met with patient in his room and introduced self and role. Patient is alert and oriented x3, but had difficulty finding words throughout the conversation and was often repetitive. Patient reported lives in a house with his 3 brothers and is independent in ADLs and driving. Patient does not have a PCP or health insurance, but states that he goes through [facility] for his care need and was in contact with them yesterday regarding this hospital stay. Patient reports hallucinations began approximately one week ago at the same time that he restarted several of his home medications. Patient denies threatening auditory or demand hallucinations. I: Self-pay P: Patient to discharge home with assistance from his 3 brothers. Care management will continue to monitor and be available for discharge resources. SN Romy Elizondo RN Discharge Planning/Care Management CM Discharge Assessment Start: 05/28/19 11:56 Freq: Status: Active Protocol: Document 05/28/19 12:43 HS (Rec: 05/28/19 12:44 HS [id number]) Discharge Planning Assessment Assigned Nuclear Plant Technical Advisor Romy Vanegas RN/SN Mikhail DPOA/Assigned Designee Name Keven Krueger (Brother) Contact Information [phone] Advance Directives? No History Provided By Patient,Medical Record Has Patient been admitted in last 30 No days? Prior Living Arrangements House Household Members family Type of transporation used prior to Drives own vehicle admit Independent with ADL's Yes Is patient alert and oriented? Yes Caregiver for Another No Barriers to Discharge No Discharge Plan Home Referrals Initiated None needed Whiteboard Updated in Patient Room with Yes name and ext. # of Nuclear Plant Technical Advisor Review Status In Process Next Review Type Continued Stay Review
--- NOTE | 2019-05-28 14:05 | PC.NURSE ---
PT DISCHARGED TO HOME FOLLOWING LONG COMMUNICATION WITH THIS RN AND HIS BROTHER AT BEDSIDE TO ASSIST WITH UNDERSTANDING DISCHARGE PLAN AND RX PLAN WELL FOLLOW UP--HE SEEMS TO UNDERSTAND THE PLAMN AND IS WILLING TO GIVE IT A TRY- DISCHARGE TO HOME AT THIS TIME
== END 2019-05-28 14:12 | disposition home or self-care (01) | DRG 689 ==
LOC: ED 12:36 → AC 05-27 06:53
PROVIDERS: Nurse Practitioner Adult Health; Admitting Provider Internal Medicine; Emergency Provider Emergency Medicine; Referring Provider Emergency Medicine; Visit Provider Internal Medicine
DX: N39.0 Urinary tract infection, site not specified (principal); G93.41 Metabolic encephalopathy; N17.9 Acute kidney failure, unspecified; E11.65 Type 2 diabetes mellitus with hyperglycemia; K59.00 Constipation, unspecified; I10 Essential (primary) hypertension; E78.5 Hyperlipidemia, unspecified; Z79.84 Long term (current) use of oral hypoglycemic drugs
CPT/HCPCS: 36415; 36600; 70450; 70496; 70498; 70548; 70553; 80048; 80053; 80305; 80320; 81003; 81015; 82009; 82550; 82805; 82962; 83036; 83735; 84145; 84443; 84484; 85025; 85610; 85730; 87077; 87086; 87186; 92523; 93005; 96361; 96365; 97161; 97165; 99285; A9579; J0696; J1644; Q9967

== ENCOUNTER 2019-06-01 21:19 | Observation (INO) | payer OTHER, MEDICAID, SELFPAY ==
[2019-05-26 14:02] VITALS: BMI 39.0
[2019-06-01 21:29] VITALS: BP 181/90; PULSE 118; RESP 16; TEMP 36.7; O2SAT 100; BMI 29.0
--- NOTE | 2019-06-01 21:43 | ED.AMS ---
HPI - Altered Mental Status General Chief Complaint: Altered Mental Status Stated Complaint: blood sugar at 548 at 21:00 Time Seen by Provider: 06/01/19 21:23 Source: patient Mode of arrival: Ambulatory Limitations: no limitations History of Present Illness HPI narrative: 53-year-old male nonsmoker with history of hypertension and diabetes presents feeling lightheaded, weak and having difficulty controlling his sugars. He states that at home his unit measured over 600. He admits to some abdominal cramping nausea and frequent urination. He has had no cough or shortness of breath. He denies any fever or chills. He's been taking his medications as directed MD complaint: altered mental status Severity: mild Consistency of symptoms: getting worse Context: history of similar presentation Related Data Home Medications Medication Instructions Recorded Confirmed aspirin 81 mg PO DAILY 05/26/19 05/26/19 atorvastatin 40 mg PO DAILY 05/26/19 05/26/19 hydrochlorothiazide 12.5 mg PO QAM 05/26/19 05/26/19 metformin 1,000 mg PO BID 05/26/19 05/26/19 Previous Rx's Medication Instructions Recorded amlodipine [Norvasc] 5 mg PO DAILY #30 tab 05/28/19 blood-glucose meter [Glucocard 01 #1 each 05/28/19 Meter] ciprofloxacin HCl 500 mg PO BID #8 tab 05/28/19 glucose 4 gram PO Q15M PRN #14 tab 05/28/19 insulin glargine [Lantus Solostar 10 unit SUBCUT BID #15 ml 05/28/19 U-100 Insulin] Allergies Allergy/AdvReac Type Severity Reaction Status Date / Time No Known Drug Allergies Allergy Verified 05/26/19 10:03 Review of Systems Constitutional Constitutional: Denies chills, Denies fatigue, Denies fever(s), Denies frequent falls, Denies lethargy and Denies weakness Eyes Eyes: Denies change in vision, Denies eye discharge, Denies irritation and Denies loss of vision ENT Ears, Nose, Mouth, and Throat: Denies change in voice, Denies dizziness, Denies neck pain, Denies sore throat and Denies throat swelling Cardiovascular Cardiovascular: Denies chest pain, Denies irregular heart rhythm, Denies lightheadedness, Denies palpitations, Denies dyspnea, Denies dyspnea on exertion and Denies orthopnea Respiratory Respiratory: Denies cough, Denies dyspnea, Denies dyspnea on exertion and Denies wheezing Gastrointestinal Gastrointestinal: Denies abdominal pain, Denies change in bowel habits, Denies diarrhea, Denies nausea and Denies vomiting Genitourinary Genitourinary: Denies hematuria, Denies flank pain, Denies urinary incontinence and Denies urinary urgency Musculoskeletal Musculoskeletal: Denies back pain, Denies muscle weakness, Denies neck pain, Denies numbness and Denies tingling Integumentary/Breasts Skin/Breast: Denies pruritus, Denies erythema, Denies rash and Denies wounds Neurologic Neurologic: Denies behavioral changes, Denies confusion, Denies dizziness, Denies frequent falls, Denies loss of vision, Denies numbness, Denies tingling and Denies weakness Psychiatric Psychiatric: Denies anxiety, Denies behavioral changes, Denies confusion, Denies depression, Denies homicidal ideation and Denies suicidal ideation Endocrine Endocrine: Denies fatigue, Denies flushing and Denies palpitations Hematologic/Lymphatic Hematologic/Lymphatic: Denies easy bruising Allergic/Immunologic Allergic/Immunologic: Denies urticaria, Denies throat swelling and Denies wheezing Patient History Medical History Diabetes (Acute) Dyslipidemia (Acute) Hypertension (Acute) Palpitations (Acute) Surgical History No pertinent past surgical history (Acute) Social History household members: family Smoking Status: Never smoker alcohol intake: never Smoking Status: Never smoker alcohol intake frequency: 0-2 drinks per day Substance Use Type: does not use Exam Narrative Exam Narrative: GENERAL: [53] year old patient appears stated age. Well-nourished, well-developed patient, in mild distress. HEAD: Atraumatic. Normocephalic. EYES: Pupils equal round and reactive. Extraocular motions intact. No scleral icterus. No injection or drainage. ENT: Nose without bleeding, purulent drainage. Throat without erythema, tonsillar hypertrophy or exudate. Airway patent. NECK: Trachea midline. Non tender CARDIOVASCULAR: Regular rate and rhythm without murmurs, gallops, or rubs. RESPIRATORY: Clear to auscultation. Breath sounds equal bilaterally. No wheezes, rales, or rhonchi. GASTROINTESTINAL: Abdomen soft, non-tender, nondistended. EXTREMITIES: No edema or joint tenderness. BACK: Nontender without deformity or crepitance. No flank tenderness. NEURO: AOx3. SKIN: No rash or erythema of visible areas Initial Vital Signs Initial Vital Signs: Vital Signs Temperature 98.1 F 06/01/19 21:29 Pulse Rate 118 H 06/01/19 21:29 Respiratory Rate 16 06/01/19 21:29 Blood Pressure 181/90 H 06/01/19 21:29 Pulse Oximetry 100 06/01/19 21:29 Course Orders Ordered: ED Orders 06/02/19 00:30 Glucose Stat Acetaminophen (Tylenol) 650 mg PO Q6HR PRN PRN Reason: Fever/Mild Pain (1-3) Sodium Chloride (Normal Saline 0.9%) 1,000 mls @ 150 mls/hr IV CONT DEEPAK Ondansetron HCl (Zofran Odt) 4 mg PO Q8HR PRN PRN Reason: Nausea And Vomiting Discontinued Medications Sodium Chloride (Normal Saline 0.9%) 1,000 mls @ 1,000 mls/hr IV BOLUS ONE Stop: 06/01/19 22:43 Last Infusion: 06/01/19 22:52 Dose: 0 mls/hr Documented by: Admin: 06/01/19 21:59 Dose: 1,000 mls/hr Documented by: RUBY INSULIN DRIP PREMIX (Myxredlin Drip Premix) 100 unit in 100 mls @ 6 mls/hr IV TITRATE DEEPAK; Protocol Last Titration: 06/02/19 03:55 Dose: 0 mls/hr, 0 mls/hr Documented by: CLARISSA Cosigned by: BEST Titration: 06/02/19 01:15 Dose: 4 mls/hr, 4 mls/hr Documented by: CLARISSA Cosigned by: BEST Titration: 06/02/19 01:12 Dose: 4 mls/hr, 4 mls/hr Documented by: RUBY Cosigned by: RUBEN Titration: 06/02/19 00:52 Dose: 4 mls/hr, 4 mls/hr Documented by: RUBY Cosigned by: RUBEN Admin: 06/01/19 23:19 Dose: 6 mls/hr, 6 mls/hr Documented by: RUBY Cosigned by: BARB Sodium Chloride (Normal Saline 0.9%) 1,000 mls @ 1,000 mls/hr IV BOLUS ONE Stop: 06/01/19 23:45 Last Infusion: 06/02/19 00:00 Dose: 0 mls/hr Documented by: Infusion: 06/01/19 23:29 Dose: 1,000 mls/hr Documented by: Infusion: 06/01/19 23:22 Dose: 0 mls/hr Documented by: Admin: 06/01/19 22:52 Dose: 1,000 mls/hr Documented by: RUBY Sodium Chloride (Normal Saline 0.9%) 1,000 mls @ 250 mls/hr IV BOLUS ONE Stop: 06/02/19 04:48 Last Admin: 06/02/19 02:16 Dose: 250 mls/hr Documented by: CLARISSA Insulin Glargine (Lantus Solostar (Pen)) 18 unit SUBCUT NOW ONE Stop: 06/02/19 04:17 Last Admin: 06/02/19 05:27 Dose: 18 unit Documented by: CLARISSA Cosigned by: BEST Vital Signs Vital signs: Vital Signs - 8 hr 06/01/19 23:30 06/02/19 00:00 06/02/19 00:30 Pulse Rate 92 H 91 H 117 H Respiratory Rate 17 24 27 H Blood Pressure [Right Arm] 146/75 H 169/84 H 160/83 H Pulse Oximetry 99 97 98 MDM - Altered Mental Status Lab Data Result diagrams: 06/02/19 04:20 06/02/19 04:20 Labs: Lab Results 06/01/19 06/01/19 06/01/19 Range/Units 21:52 21:57 21:57 WBC 12.5 H (4.5-11.0) X10^3/uL RBC 5.04 (4.5-5.9) X10^6/uL Hgb 14.2 (13.5-17.5) g/dL Hct 42.0 (41-53) % MCV 83.4 (80-100) fL MCH 28.2 (26-34) PG MCHC 33.9 (30-36) % RDW 14.7 (11.6-14.8) % Plt Count 511 H (150-400) X10^3/uL Neut % (Auto) 74.7 (50-75) % Lymph % (Auto) 17.4 L (25-40) % [place] % (Auto) 6.7 (3-14) % Eos % (Auto) 0.6 L (2-4) % Baso % (Auto) 0.6 (0-2) % Neut # (Auto) 9300 H (0397-9817) /uL Lymph # (Auto) 2200 (6275-8047) /uL [place] # (Auto) 800 (0-900) /uL Eos # (Auto) 100 (0-450) /uL Baso # (Auto) 100 (0-100) /uL VBG pH 7.36 (7.33-7.43) VBG pCO2 48.7 (45-50) mmHg VBG pO2 14 L (35-45) mmHg VBG HCO3 28 (23-28) mmol/L VBG Total CO2 29 (24-29) mmol/L VBG O2 Saturation 15 L (70-75) % VBG Base Excess 2.0 (0-4) mmol/L Sodium 131 L (137-145) mmol/L Potassium 3.9 (3.4-5.1) mmol/L Chloride 87 L (98-107) mmol/L Carbon Dioxide 26 (22-32) mmol/L BUN 29 H (9-20) mg/dL Creatinine 1.50 H (0.66-1.25) mg/dL Estimated GFR 49.3 L (>60) mL/min BUN/Creatinine Ratio 19.3 (6-22) Glucose 611 H* D (70-100) mg/dL Calcium 9.7 (8.4-10.2) mg/dL Magnesium 1.6 (1.6-2.3) mg/dL Total Bilirubin 0.4 (0.2-1.3) mg/dL AST 16 L (17-59) IU/L ALT 18 (<50) IU/L Alkaline Phosphatase 116 (38-126) U/L Total Protein 8.1 (6.3-8.2) g/dL Albumin 4.3 (3.5-5.0) g/dL Globulin 3.8 (1.7-4.1) g/dL Albumin/Globulin Ratio 1.1 (1.0-2.8) Ketones 0.27 H (<0.27) mmol/L 06/02/19 Range/Units 00:30 WBC (4.5-11.0) X10^3/uL RBC (4.5-5.9) X10^6/uL Hgb (13.5-17.5) g/dL Hct (41-53) % MCV (80-100) fL MCH (26-34) PG MCHC (30-36) % RDW (11.6-14.8) % Plt Count (150-400) X10^3/uL Neut % (Auto) (50-75) % Lymph % (Auto) (25-40) % [place] % (Auto) (3-14) % Eos % (Auto) (2-4) % Baso % (Auto) (0-2) % Neut # (Auto) (8708-9135) /uL Lymph # (Auto) (4934-3192) /uL [place] # (Auto) (0-900) /uL Eos # (Auto) (0-450) /uL Baso # (Auto) (0-100) /uL VBG pH (7.33-7.43) VBG pCO2 (45-50) mmHg VBG pO2 (35-45) mmHg VBG HCO3 (23-28) mmol/L VBG Total CO2 (24-29) mmol/L VBG O2 Saturation (70-75) % VBG Base Excess (0-4) mmol/L Sodium (137-145) mmol/L Potassium (3.4-5.1) mmol/L Chloride (98-107) mmol/L Carbon Dioxide (22-32) mmol/L BUN (9-20) mg/dL Creatinine (0.66-1.25) mg/dL Estimated GFR (>60) mL/min BUN/Creatinine Ratio (6-22) Glucose 334 H D (70-100) mg/dL Calcium (8.4-10.2) mg/dL Magnesium (1.6-2.3) mg/dL Total Bilirubin (0.2-1.3) mg/dL AST (17-59) IU/L ALT (<50) IU/L Alkaline Phosphatase (38-126) U/L Total Protein (6.3-8.2) g/dL Albumin (3.5-5.0) g/dL Globulin (1.7-4.1) g/dL Albumin/Globulin Ratio (1.0-2.8) Ketones (<0.27) mmol/L Point of Care Testing Glucose POC 406 Urine Dip Bedside Urine Glucose 1000 mg/dl Bedside Urine Bilirubin - Negative Bedside Urine Ketone - Negative Urine Specific [place] 1.015 Bedside Urine Occult Blood - Negative Bedside Urine pH 6.0 Bedside Urine Protein - Negative Bedside Urine Urobilinogen - Negative Bedside Urine Nitrite - Negative Bedside Urine Leukocytes - Negative Esterase Discharge Plan Departure Patient Disposition: Admitted As Inpatient Clinical Impression: Hyperglycemia, Acute dehydration, Acute kidney injury Discharge Date/Time: 06/02/19 01:15 Admit Date/Time: 06/02/19 00:45 Admit Provider: Jose Blair
[2019-06-01] MEDS: SODIUM CHLORIDE 0.9% 1,000 ML 1000 ML IV ×2 (21:59→22:52)
[2019-06-01 22:04] LABS: HCO3 VBG 28 mmol/L (23-28); PCO2 VBG 48.7 mmHg (45-50); PO2 VBG 14 mmHg (35-45); Total CO2 VBG 29 mmol/L (24-29); pH VBG 7.36 (7.33-7.43)
[2019-06-01 22:05] LABS: Oxygen Saturation VBG 15 % (70-75)
[2019-06-01 22:16] LABS: Add Manual Diff / Slide Review NO; Basophils Absolute Auto 100 /uL (0-100); Basophils Percent Auto 0.6 % (0-2); Eosinophils Absolute Auto 100 /uL (0-450); Eosinophils Percent Auto 0.6 % (2-4); Hemoglobin 14.2 g/dL (13.5-17.5); Lymphocytes Absolute Auto 2200 /uL (1100-4500); Lymphocytes Percent Auto 17.4 % (25-40); Mean Corpuscular HGB Conc 33.9 % (30-36); Mean Corpuscular Hemoglobin 28.2 PG (26-34); Mean Corpuscular Volume 83.4 fL (80-100); Monocytes Absolute Auto 800 /uL (0-900); Monocytes Percent Auto 6.7 % (3-14); Neutrophils Absolute Auto 9300 /uL (1500-7000); Neutrophils Percent Auto 74.7 % (50-75); Platelet Count 511 X10^3/uL (150-400); Red Blood Cell Count 5.04 X10^6/uL (4.5-5.9); Red Cell Distribution Width 14.7 % (11.6-14.8); White Blood Cell Count 12.5 X10^3/uL (4.5-11.0)
[2019-06-01 22:18] VITALS: BP 166/87; PULSE 94; RESP 18; O2SAT 100
[2019-06-01 22:22] LABS: Alanine Aminotransferase 18 IU/L (<50); Albumin 4.3 g/dL (3.5-5.0); Albumin Globulin Ratio 1.1 (1.0-2.8); Alkaline Phosphatase 116 U/L (38-126); Aspartate Aminotransferase 16 IU/L (17-59); BUN Creatinine Ratio 19.3 (6-22); Bilirubin Total 0.4 mg/dL (0.2-1.3); Blood Urea Nitrogen 29 mg/dL (9-20); Calcium 9.7 mg/dL (8.4-10.2); Carbon Dioxide 26 mmol/L (22-32); Chloride 87 mmol/L (98-107); Estimated Glomerular Filt Rate 49.3 mL/min (>60); Globulin 3.8 g/dL (1.7-4.1); HEMOLYSIS < 15 (0-50); Magnesium 1.6 mg/dL (1.6-2.3); Potassium 3.9 mmol/L (3.4-5.1); Sodium 131 mmol/L (137-145); Total Protein 8.1 g/dL (6.3-8.2)
[2019-06-01 22:25] LABS: Ketones (Beta-Hydroxybutyrate) 0.27 mmol/L (<0.27)
[2019-06-01 22:30] LABS: Glucose 611 mg/dL (70-100)
[2019-06-01 22:55] VITALS: BP 161/86; PULSE 92; RESP 13; O2SAT 100
[2019-06-01 23:00] VITALS: BP 180/92; PULSE 120; RESP 31; O2SAT 97
[2019-06-01] MEDS: INSULIN DRIP PREMIX 100 UNIT/100 ML PLAST..BAG 6 UNIT IV (23:19)
[2019-06-01 23:30] VITALS: BP 146/75; PULSE 92; RESP 17; O2SAT 99
[2019-06-02] VITALS (11 sets, daily range): BP systolic 130–173; BP diastolic 73–88; PULSE 71–117; RESP 14–27; TEMP 36.4–37.5; O2SAT 96–100; BMI 29.0
[2019-06-02 00:45] LABS: Glucose 334 mg/dL (70-100)
--- NOTE | 2019-06-02 01:41 | PC.NURSE ---
Addendum entered by Chris Reagan R.N. 06/02/19 01:44: 0140: pt states that for the last week and a half, he halucinates but only sees the halucination through his right eye. He states that he is seeing his sister and her family now but understands that it is not real. Original Note: Insurance Verifier Note: 0115: Admitted to ICU room 227 from ER. Pt is alert, oriented X3. IV in place in lt AC with regular insulin infusing at 4u/hr. Second IV in place in rt hand, saline locked.
[2019-06-02] MEDS: SODIUM CHLORIDE 0.9% 1,000 ML 250 ML IV (02:16)
--- NOTE | 2019-06-02 02:35 | P.HP_ITS ---
History of Present Illness <Jose LUIS ALFREDO Blair - Last Filed: 06/02/19 08:58> History of Present Illness Date Patient Seen: 06/02/19 Time Patient Seen: 02:35 Chief complaint: blood sugar at 548 at 21:00 Narrative: The patient is a 53-year-old male with PMH of HTN, DM 2T, and dyslipidemia. Patient presented to the ED via EMS out of concern for hyperglycemia and difficulty with glycemic control. Patient was recently hospitalized, 05/26- 05/28, for toxic metabolic encephalopathy, uncontrolled DM 2T w/hyperglycemia (A1C 13.7%) as well as a urinary tract infection. Patient was discharged with changes to his medication regimen. Specifically, he was started on Lantus 10 units BID and metformin 1000 mg BID. Patient reports adherence with a newly prescribed medication regimen. At time of discharge patient was also prescribed ciprofloxacin 500 mg twice a day for treatment of his UTI, which he repoted to have completed 1-2 days ago. In addition patient was prescribed amlodipine 5 mg daily, this was added to his pre-existing regimen of HCTZ 12.5 mg QD. Patient reports associated symptoms of dizziness, lightheadedness, blurry vision, generalized weakness , intermittent episodes of nausea, and abdominal cramping. He reports catabolic symptoms of polydipsia, polyuria, in the 25 lb weight loss for the past 2 months. Patient notes having difficulty with glycemic control, reporting blood glucose in the 300-400 g/dL range, despite newly prescribed medication regimen. He has not experienced fever, chills, chest pain palpitations, gastrointestinal distress. Denies cough and URI symptoms. Patient reports presence of a perceptual disturbance out of his right eye only. Specifically reports seeing vivid images of family. These images are fixed in place. Patient reports this symptom to be present for the past month. Denies auditory hallucinations or persecutory delusions. Patient describes sense of a socially withdrawn. He specifically notes a sense of anxiety and overstimulation be external stimuli in unfamiliar people. He denies depression. Patient states that he is adopted by his uncle. He does know his mother and father are. Denies history of mental illness in the family. Initial ED workup was remarkable for leukocytosis WBC 12.5 (no left shift), glucose of 611, mildly altered electrolytes Na 131 K 3.9 Mg 1.6 Cl 87, and DANILO w/ sCr of 1.5 (baseline 1.0). No abnormalities and liver function. Urinalysis revealed glycosuria (1000 mg/dL) without evidence infection, proteinuria, or active sediment. Patient History <LUIS ALFREDO Bourgeois - Last Filed: 06/02/19 08:58> Medical History Diabetes (Acute) Dyslipidemia (Acute) Hypertension (Acute) Palpitations (Acute) Surgical History No pertinent past surgical history (Acute) Family & Social History Social History: household members family Prior Living Arrangements House Safety & Behavioral: Feels Safe in Current Yes Environment Been Physically Hurt or No Threatened By a Person Suicidal Ideation Description None Suicide Plan Description No Plan Tobacco & Substance use: Smoking Status Never smoker alcohol intake never alcohol intake frequency 0-2 drinks per day Substance Use Type does not use Meds <LUIS ALFREDO Bourgeois - Last Filed: 06/02/19 08:58> Home Medications and Allergies Home Medications Medication Instructions Recorded Confirmed Type aspirin 81 mg PO DAILY 05/26/19 06/02/19 History atorvastatin 40 mg PO DAILY 05/26/19 06/02/19 History hydrochlorothiazide 12.5 mg PO QAM 05/26/19 06/02/19 History metformin 1,000 mg PO BID 05/26/19 06/02/19 History amlodipine [Norvasc] 5 mg PO DAILY #30 tab 05/28/19 06/02/19 Rx blood-glucose meter [Glucocard 01 #1 each 05/28/19 06/03/19 Rx Meter] glucose 4 gram PO Q15M PRN #14 tab 05/28/19 06/02/19 Rx insulin glargine [Lantus Solostar 10 unit SUBCUT BID #15 ml 05/28/19 06/02/19 Rx U-100 Insulin] Allergies Allergy/AdvReac Type Severity Reaction Status Date / Time No Known Drug Allergies Allergy Verified 05/26/19 10:03 Review of Systems <LUIS ALFREDO Bourgeois - Last Filed: 06/02/19 08:58> Review of Systems ROS: Yes All systems reviewed with the patient and are negative except as otherwise documented Exam <LUIS ALFREDO Bourgeois - Last Filed: 06/02/19 08:58> Vital Signs (past 8 hours): - 06/01/19 21:29 06/01/19 22:18 06/01/19 22:55 Temperature 98.1 F Pulse Rate 118 H 94 H 92 H Respiratory Rate 16 18 13 Blood Pressure 181/90 H Blood Pressure [Right Arm] 166/87 H 161/86 H Pulse Oximetry 100 100 100 06/01/19 23:00 06/01/19 23:30 06/02/19 00:00 Temperature Pulse Rate 120 H 92 H 91 H Respiratory Rate 31 H 17 24 Blood Pressure Blood Pressure [Right Arm] 180/92 H 146/75 H 169/84 H Pulse Oximetry 97 99 97 06/02/19 00:30 06/02/19 01:00 06/02/19 01:15 Temperature 98.6 F Pulse Rate 117 H 92 H 91 H Respiratory Rate 27 H 19 14 Blood Pressure 173/88 H Blood Pressure [Right Arm] 160/83 H 130/73 Pulse Oximetry 98 99 100 Oxygen Delivery Method Room Air Oxygen Flow Rate 0 Narrative Exam Narrative: Constitutional: NAD Neurologic: AOx3, no focal neurological deficits Head: NC, AT Eyes: PERRL, EOMI, Ears: external ears normal, no otorrhea Nose: external nose normal, no rhinorrhea or epistaxis Throat: MMM, oropharynx w/o exudate Neck: no masses, lymphadenopathy, or JVD Chest / Respiratory: Equal chest rise, CTAB, on room air Heart / CV: S1S2, no murmur Abdomen / GI: round, NT, ND, + BS, no organomegaly : no suprapubic tenderness, no CVA Peripheral / Vascular: warm to touch, DP and PT pulses palpable, no edema Musc: full ROM of upper and lower extremities, adequate muscle tone and bulk Skin: no ecchymosis or suspicious lesions / ulcers Objective <LUIS ALFREDO Bourgeois - Last Filed: 06/02/19 08:58> Labs Result Diagrams: 06/02/19 04:20 06/02/19 04:20 Labs: Laboratory Results - last 24 hr 06/01/19 06/01/19 06/01/19 21:52 21:57 21:57 WBC 12.5 H RBC 5.04 Hgb 14.2 Hct 42.0 MCV 83.4 MCH 28.2 MCHC 33.9 RDW 14.7 Plt Count 511 H Neut % (Auto) 74.7 Lymph % (Auto) 17.4 L [place] % (Auto) 6.7 Eos % (Auto) 0.6 L Baso % (Auto) 0.6 Neut # (Auto) 9300 H Lymph # (Auto) 2200 [place] # (Auto) 800 Eos # (Auto) 100 Baso # (Auto) 100 VBG pH 7.36 VBG pCO2 48.7 VBG pO2 14 L VBG HCO3 28 VBG Total CO2 29 VBG O2 Saturation 15 L VBG Base Excess 2.0 Sodium 131 L Potassium 3.9 Chloride 87 L Carbon Dioxide 26 BUN 29 H Creatinine 1.50 H Estimated GFR 49.3 L BUN/Creatinine Ratio 19.3 Glucose 611 H* D Calcium 9.7 Magnesium 1.6 Total Bilirubin 0.4 AST 16 L ALT 18 Alkaline Phosphatase 116 Total Protein 8.1 Albumin 4.3 Globulin 3.8 Albumin/Globulin Ratio 1.1 Ketones 0.27 H 06/02/19 00:30 WBC RBC Hgb Hct MCV MCH MCHC RDW Plt Count Neut % (Auto) Lymph % (Auto) [place] % (Auto) Eos % (Auto) Baso % (Auto) Neut # (Auto) Lymph # (Auto) [place] # (Auto) Eos # (Auto) Baso # (Auto) VBG pH VBG pCO2 VBG pO2 VBG HCO3 VBG Total CO2 VBG O2 Saturation VBG Base Excess Sodium Potassium Chloride Carbon Dioxide BUN Creatinine Estimated GFR BUN/Creatinine Ratio Glucose 334 H D Calcium Magnesium Total Bilirubin AST ALT Alkaline Phosphatase Total Protein Albumin Globulin Albumin/Globulin Ratio Ketones Assessment & Plan <LUIS ALFREDO Bourgeois - Last Filed: 06/02/19 08:58> Assessment & Plan narrative: Patient is admitted under observation status for hyperglycemia, dehydration, and DANILO Diabetes mellitus type 2 (uncontrolled) with hyperglycemia, present on admission, active - Ketones WNL, anion gap 18, brenda serum osmolality 306... Likely in the setting of hypovolemia/osmotic diuresis, received 3L of NS, continue IVF at 150 ml/hr - stop insulin gtt. transition to Lantus 18 units daily, will give dose now. - start on SSI medium level - continue Q1h glu checks until stable, then plan to transition to AC/HS starting at breakfast time - hold metformin for now - degree of diabetic control is significantly inadequate, this patient should be managed with an intensive insulin therapy, consider managing with insulin only until his endogenous insulin secretion and insulin sensitivity improved, at that time he can be transitioned to oral hypoglycemics. DANILO, present on admission, active - suspected to be in the setting of dehydration/hypovolemia - UA without findings of proteinuria - this patient would benefit from low-dose Sam and a statin for renal protection Dehydration, acute, present on admission, active - suspected to be in the setting of osmotic diuresis and renal losses - Stop HCTZ, recommend discontinuing HCTZ altogether - IVF Dyslipidemia, chronic condition, present on admission, active /stable - resume PT regimen of statin Visual disturbance, subacute, present on admission, active - etiology is not entirely clear, present for 1 month - recommend outpatient follow-up with ophthalmology - consider underlying psychiatric illness, as a differential - patient has recently had a CT of head, MRI of brain, and CTA of neck which were essentially unremarkable, with an exception of an incidental finding of a chronic (presumed) left posterior fossa arachnoid cyst Code status discussed with patient. Wishes to be full code. Designates his brother Domo Krueger as a surrogate decision maker. Home medications reviewed and reconciled accordingly. VT prophylaxis with SCDs. <Rusty Hussein, DO - Last Filed: 06/03/19 07:38> Assessment & Plan narrative: I agree with the assessment and plan as documented by Rogelio Blair, patient was seen and evaluated on 06/02/2019 at 11:10 AM. Patient was later changed to 25 units of lantus BID for rising glucose.
[2019-06-02 04:45] LABS: Alanine Aminotransferase 15 IU/L (<50); Albumin 3.7 g/dL (3.5-5.0); Albumin Globulin Ratio 1.1 (1.0-2.8); Alkaline Phosphatase 83 U/L (38-126); Aspartate Aminotransferase 14 IU/L (17-59); Bilirubin Total 0.2 mg/dL (0.2-1.3); Blood Urea Nitrogen 24 mg/dL (9-20); Carbon Dioxide 27 mmol/L (22-32); Chloride 98 mmol/L (98-107); Estimated Glomerular Filt Rate > 60.0 mL/min (>60); Globulin 3.4 g/dL (1.7-4.1); Glucose 119 mg/dL (70-100); HEMOLYSIS < 15 (0-50); Potassium 4.7 mmol/L (3.4-5.1); Sodium 134 mmol/L (137-145); Total Protein 7.1 g/dL (6.3-8.2)
[2019-06-02 04:55] LABS: Add Manual Diff / Slide Review NO; Basophils Absolute Auto 100 /uL (0-100); Basophils Percent Auto 0.7 % (0-2); Eosinophils Absolute Auto 100 /uL (0-450); Eosinophils Percent Auto 0.6 % (2-4); Hematocrit 36.2 % (41-53); Hemoglobin 12.5 g/dL (13.5-17.5); Lymphocytes Absolute Auto 2900 /uL (1100-4500); Mean Corpuscular HGB Conc 34.4 % (30-36); Mean Corpuscular Volume 81.4 fL (80-100); Monocytes Absolute Auto 1100 /uL (0-900); Monocytes Percent Auto 8.1 % (3-14); Neutrophils Absolute Auto 9000 /uL (1500-7000); Neutrophils Percent Auto 68.6 % (50-75); Platelet Count 436 X10^3/uL (150-400); Red Blood Cell Count 4.45 X10^6/uL (4.5-5.9); Red Cell Distribution Width 14.6 % (11.6-14.8); White Blood Cell Count 13.1 X10^3/uL (4.5-11.0)
[2019-06-02 05:09] LABS: Erythrocyte Sedimentation Rate 33 MM/HR (0-15)
[2019-06-02] MEDS: INSULIN GLARGINE 100 UNIT/ML 3ML PEN 18 UNIT SUBCUT (05:27)
[2019-06-02] MEDS: SODIUM CHLORIDE 0.9% 1,000 ML 150 ML IV (06:50)
--- NOTE | 2019-06-02 08:50 | PC.NURSE ---
Addendum entered by Susan Cabral R.N. 06/02/19 13:20: TRANSFERRED TO ROOM 211- LUNCH TIME BLOOD GLU 281- COVERED WITH 5 UNITS INSULIN- REPORT GIVEN TO ANTOINETTE Swanson RN- PT AMBULATED TO NEW ROOM Original Note: cbg achs now and was 200 this am prior to eating full breakfast- coverage ordered this am but not given as of yet (awaiting delivery from pharmacy)- lungs clear and physical assessment benign. Pt does report continued visual hallucinations R eye only now and he endorses outside it's horses and cows but not real animals more like statues and desks and chairs, sometimes faces he denies being frightened by these. Pt also reports home blood sugars being 400, 500, and 600 he claims he is taking it 2x daily and that he has been taking his medication as ordered.
[2019-06-02] MEDS: AMLODIPINE 5 MG TABLET PO (09:26)
[2019-06-02] MEDS: INSULIN ASPART 100 UNIT/ML INSULN PEN SUBCUT ×4 (09:26→21:27)
[2019-06-02] MEDS: ASPIRIN 81 MG CHEW TAB PO (09:26)
[2019-06-02] MEDS: ATORVASTATIN 20 MG TABLET 40 MG PO (09:26)
--- NOTE | 2019-06-02 14:11 | CM.DANOTE ---
Patient is a 53 year old male who was a READMIT on 06/02/19 for Blood sugar issues. Pt has [employer] and [employer] for insurance and his PCP is at the [facility]. EMR was reviewed. Per MD, pt was here for similar about a week ago for toxic metabolic encephalopathy and here for dehydration and diabetes compliance issues. Pt now off insulin drip and will make referral for outpt Neurologist follow up due to pt's stated visual disturbance. Pt likely stable for d/c tonight or tomorrow to home. Per RN, pt denied any auditory hallucinations or delusions but states he has visual disturbances out of one eye that have been ongoing for a couple weeks and do not cause pt any distress. RN working on further diabetic teaching with the pt as unclear if pt is retaining instructions and recommendations regarding his diabetes, medication, diet. SW met bedside with pt and explained role and pt alert and oriented but struggles with making consistent eye contact. Pt confirms that he lives in [place] with his 3 brothers/step-brothers and is independent with ADL's at baseline and his brother typically drives pt to appointments. Pt confirms that he uses the [facility] for his PCP and declines PCP information to establish with someone in [place] and feels comfortable with going to the [facility] if needed. Pt discussed that he has severe anxiety with any social situations, including a gathering with people I already know. SW inquired if pt has ever been established with a mental health counselor or felt a connection with the [facility] SW to discuss possible ways of dealing with his anxiety with social settings. Pt states he has found a way to tolerate having to go to the doctor, hospital, anywhere in public and establishing with a counselor causes too much anxiety to consider a referral. SW discussed the benefits of a consistent counselor to assist with techniques and support but pt declines resources at this time. Pt further discussed his hx of being adopted by his uncle and some family hx of diabetes. Pt feels supported at home with his brothers/step brothers. Pt preference is to d/c home via brother POV tomorrow and does not anticipate any further needs. Pt's poor eye contact and reference to social anxiety and flat affect could be a sign of underlying mental health or spectrum do but may be also addressed in outpt setting with Neurologist. Plan: SW to follow for likely pt d/c home via brother POV when medically stable and outpt follow up referrals. HERVE Lopez Discharge Planning/Care Management Advanced directive, confirm from FAMILY Start: 06/02/19 01:31 Freq: Q24H Status: Complete Protocol: Document 06/02/19 01:35 RAC (Rec: 06/02/19 01:37 RAC [id number]) Advance Directive, confirm on record Time 01:00 Person contacted nobody available Copy received No CM Discharge Assessment Start: 06/02/19 14:06 Freq: Status: Active Protocol: Document 06/02/19 14:07 BF (Rec: 06/02/19 14:11 BF [id number]) Discharge Planning Assessment Assigned Cash Register Balancer JOSE Dexter DPOA/Assigned Designee Name none Advance Directives? No History Provided By Patient,Medical Record Has Patient been admitted in last 30 Yes days? Comment Here 05/26-05/28/19 for similar, discharged home Prior Living Arrangements House Household Members family Comment Lives in a house with 3 other brothers Type of transporation used prior to Relies on Others admit Independent with ADL's Yes Is patient alert and oriented? Yes Needs Assistance With Managing Medications Caregiver for Another No Comment Home likely Barriers to Discharge No Discharge Plan Home Transportation Arrangement Brother can provide transport home at d/c Referrals Initiated None needed Whiteboard Updated in Patient Room with Yes name and ext. # of Cash Register Balancer Review Status In Process Please Provide Date Initial DC 06/02/19 Assessment Was Performed Next Review Type Continued Stay Review
--- NOTE | 2019-06-02 16:08 | PC.NURSE ---
Pt resting w/o any c/o. Denies discomfort. Up independently in room HL X 2 Right hand & LAC intact. Call light w/in reach. Pt calls appropriately for needs.
[2019-06-02] MEDS: INSULIN GLARGINE 100 UNIT/ML 3ML PEN 25 UNIT SUBCUT (21:28)
[2019-06-02] MEDS: SODIUM CHLORIDE 0.9% 1,000 ML 125 ML IV (23:21)
[2019-06-03] MEDS: ACETAMINOPHEN 325 MG TABLET 650 MG PO ×2 (00:08→07:59)
--- NOTE | 2019-06-03 02:13 | PC.NURSE ---
Addendum entered by Dory Guerra R.N. 06/03/19 05:50: Noted weight gain of 2.2kg this morning. GEM CARVER informed and states likely due to patient being severely dehydrated on admission and now has been rehydrated. Original Note: Patient seen and assessed at 0015. Is alert and oriented although affect is flat and can be forgetful. Breath sounds CTA with RA sat of 100%. HRR. Denies nausea. BT present and abdomen is soft. Voiding without dysuria, frequency or urgency; does not always remember to use urinal to keep track of output. Able to turn self in bed and has been getting up independently although requested he call for assistance since has IVF infusing; verbalizes agreement. Noted order for SCD's and patient initially agreeable to having them placed but only on for 30 and requested to have them removed. Complains of headache; medicated with Tylenol. Fall risk score is moderate but is steady on feet so alarm not currently in use.
[2019-06-03 03:01] VITALS: BP 133/72; PULSE 73; RESP 16; TEMP 36.7; O2SAT 100
[2019-06-03] MEDS: SODIUM CHLORIDE 0.9% 1,000 ML 125 ML IV (07:21)
[2019-06-03] MEDS: ATORVASTATIN 20 MG TABLET 40 MG PO (07:58)
[2019-06-03] MEDS: AMLODIPINE 5 MG TABLET PO (07:59)
[2019-06-03] MEDS: ASPIRIN 81 MG CHEW TAB PO (07:59)
[2019-06-03 08:00] VITALS: BP 161/93; PULSE 74; RESP 16; TEMP 36.7; O2SAT 100
--- NOTE | 2019-06-03 08:08 | CM.DPC ---
Addendum entered by Martha Giordano LPN 06/03/19 13:23: A check in shows that pt did go home with his brother just before noon. Addendum entered by Martha Giordano LPN 06/03/19 13:21: Pt was deemed stable for d/c prior to Rounds. Did see him walking independently in halls prior to this. Long Distance Billing Operator Brianna states that her colleague did meet at length with pt re diabetic management when he was here during last vrey recent admission and no need for new referral. P: home today. clinic followup. Original Note: DCP: continued: Case received, EMR reviewed and note plan for d/c to home setting (lives with his brothers) and followup at [facility]. DCP assessment and discussion re pt's mental health issues as per HERVE Dexter is noted. Will see pt in Team Rounds and follow prn.
--- NOTE | 2019-06-03 08:16 | P.DS_ITS ---
History of Present Illness History of Present Illness Date Patient Seen: 06/03/19 Time Patient Seen: 08:16 Chief complaint: blood sugar at 548 at 21:00 Narrative: As per LUIS ALFREDO Bourgeois: The patient is a 53-year-old male with PMH of HTN, DM 2T, and dyslipidemia. Patient presented to the ED via EMS out of concern for hyperglycemia and difficulty with glycemic control. Patient was recently hospitalized, 05/26- 05/28, for toxic metabolic encephalopathy, uncontrolled DM 2T w/hyperglycemia (A1C 13.7%) as well as a urinary tract infection. Patient was discharged with changes to his medication regimen. Specifically, he was started on Lantus 10 units BID and metformin 1000 mg BID. Patient reports adherence with a newly prescribed medication regimen. At time of discharge patient was also prescribed ciprofloxacin 500 mg twice a day for treatment of his UTI, which he repoted to have completed 1-2 days ago. In addition patient was prescribed amlodipine 5 mg daily, this was added to his pre-existing regimen of HCTZ 12.5 mg QD. Patient reports associated symptoms of dizziness, lightheadedness, blurry vision, generalized weakness , intermittent episodes of nausea, and abdominal cramping. He reports catabolic symptoms of polydipsia, polyuria, in the 25 lb weight loss for the past 2 months. Patient notes having difficulty with glycemic control, reporting blood glucose in the 300-400 g/dL range, despite newly prescribed medication regimen. He has not experienced fever, chills, ches t pain palpitations, gastrointestinal distress. Denies cough and URI symptoms. Patient reports presence of a perceptual disturbance out of his right eye only. Specifically reports seeing vivid images of family. These images are fixed in place. Patient reports this symptom to be present for the past month. Denies auditory hallucinations or persecutory delusions. Patient describes sense of a socially withdrawn. He specifically notes a sense of anxiety and overstimulation be external stimuli in unfamiliar people. He denies depression. Patient states that he is adopted by his uncle. He does know his mother and father are. Denies history of mental illness in the family. Initial ED workup was remarkable for leukocytosis WBC 12.5 (no left shift), glucose of 611, mildly altered electrolytes Na 131 K 3.9 Mg 1.6 Cl 87, and DANILO w/ sCr of 1.5 (baseline 1.0). No abnormalities and liver function. Urinalysis revealed glycosuria (1000 mg/dL) without evidence infection, proteinuria, or active sediment. Discharge Providers Provider Date of admission: 06/02/19 00:45 Discharge Date: 06/03/19 Discharge provider: Rusty Hussein DO Summary Hospital Course Discharge Diagnosis: 1. Diabetes mellitus type 2 (uncontrolled) with hyperglycemia, present on admission, active, possible mild DKA 2. DANILO, present on admission, resolved 3. Dehydration, acute, present on admission, resolved 4. Dyslipidemia, chronic condition, present on admission, active /stable 5. Visual disturbance, subacute, present on admission, active Hospital Course: Patient is a 53 year old male with PMH of DM. He was recently discharged on a regimen of 10 U of lantus BID and presented back with hyperglycemia.He had an elevated anion gap for which he was started on an insulin gtt but this was discontinued almost immediately on arrival to the floor. He was then titrated up on his insulin regimen. Upon discharge he was up to 28 units BID with instructions for titration noted in discharge plan. I recommended he establish care with a stable primary care provider but has been obtaining care from the [facility] so far. He also complained of visual hallucinations described as specific memories / events from his life that were not traumatic in nature. They were never present during examinations with the provider but he did note him. The etiologies are unclear at this time. It may be related to his hyperglycemia but other possibilties include neurological or psychiatric issues. Patient did not reveal thoughts of self harm or harm to others. He should follow up with either a neurologist or psychiatrist for further evaluation as an outpatient. Status at Discharge Cognitive/behavioral status at discharge: oriented Functional status at discharge: independent ambulation Overall status at discharge: patient is back to baseline Time Spent with Patient Time spent: Less than 30 minutes Exam Vital Signs (past 8 hours): - 06/03/19 03:01 Temperature 98.1 F Pulse Rate 73 Respiratory Rate 16 Blood Pressure 133/72 Pulse Oximetry 100 Oxygen Delivery Method Room Air Oxygen Flow Rate 0 Narrative Exam Narrative: GENERAL APPEARANCE: Well developed, well nourished, in no acute distress. SKIN: Inspection of the skin reveals no rashes, ulcerations or petechiae. HEENT: The sclerae were anicteric and conjunctivae were pink and moist. Extraocular movements were intact and pupils were equal, round with normal accommodation. External inspection of the ears and nose showed no scars, lesions, or masses. Lips, teeth, and gums showed normal mucosa. The oral mucosa, hard and soft palate, tongue and posterior pharynx were unremarkable. NECK: Supple and symmetric. There was no thyroid enlargement, and no tenderness, or masses were felt. CHEST: Normal AP diameter and normal contour without any kyphoscoliosis. LUNGS: Auscultation of the lungs revealed no wheezes, rhonchi, or rales. CARDIOVASCULAR: There was a regular rate and rhythm without any murmurs, gallops, rubs. Peripheral pulses were 2+ and symmetric. ABDOMEN: Soft and nontender with normal bowel sounds. No ascites was noted. MUSCULOSKELETAL: There was no tenderness or effusions noted. Muscle strength and tone were normal. EXTREMITIES: No cyanosis, clubbing or edema. NEUROLOGIC: Alert and oriented x 3. Normal affect. Gait was normal. Strength is +5/5 in the Upper Extremities and Lower Extremities Bilaterally. Sensation to touch was normal. Objective Labs Result Diagrams: 06/02/19 04:20 06/02/19 04:20 Discharge Plan Discharge Plan Patient Disposition: Home Discharge comment: You were admitted to the hospital with elevated blood sugar and possibly mild diabetic ketoacidosis. Your Lantus dosing was increased but still not completely controlled upon discharge. Please start taking 28 units of Lantus twice a day. If your blood sugar starts going below 120 please back off to 25 units twice a day as for now your target blood sugar should be between 120 and 140. If your blood sugar is over 180 in the morning for is 3 consecutive days please increase your Lantus dose by 2 units. Please follow-up with a primary care provider in the next week or 2 for further adjustment of your diabetic medications. You can also continue your metformin. Please trying keep a detailed log of your blood sugars to make it easier to adjust your medications going forward. You should also follow-up with her primary care provider for possible referral to a neurologist or psychiatrist if your visual symptoms continue to occur. Discharge orders & Medications Prescriptions: New Lantus Solostar U-100 Insulin 100 unit/mL (3 mL) insulin pen 28 unit SUBCUT BID 30 Days Qty: 16.8 RF: 0 Continued atorvastatin 40 mg Tablet 40 mg PO DAILY RF: 0 metformin 1,000 mg Tablet 1,000 mg PO BID RF: 0 hydrochlorothiazide 12.5 mg Capsule 12.5 mg PO QAM RF: 0 aspirin 81 mg Tablet,Chewable 81 mg PO DAILY RF: 0 amlodipine [Norvasc] 5 mg Tablet 5 mg PO DAILY Qty: 30 RF: 0 glucose 4 gram tablet,chewable 4 gram PO Q15M PRN (Reason: hypoglycemia) Qty: 14 RF: 0 (DME) blood-glucose meter [Glucocard 01 Meter] Kit See Rx Instructions .ROUTE .MEDSUPPLY Qty: 1 RF: 0 Discontinued Lantus Solostar U-100 Insulin 100 unit/mL (3 mL) Insulin Pen 10 unit subcut BID Qty: 15 RF: 0 Discharge Health Status Health Concerns: type II diabetes Diet/Activity/Treatments Diet: Diet as Tolerated and Carb-consistent/Diabetic Activity: As tolerated Visit Report/Discharge Packet Instructions: DI for Hyperglycemia -- Adult, DI for Diabetic Ketoacidosis, How to Use an Insulin Pen Discharge Data Attending Provider: Jose Blair Admit Date/Time: 06/02/19 00:45 Discharges patient from system. Discharge Date/Time: 06/03/19 11:48
[2019-06-03] MEDS: INSULIN ASPART 100 UNIT/ML INSULN PEN SUBCUT (08:48)
[2019-06-03] MEDS: INSULIN GLARGINE 100 UNIT/ML 3ML PEN 28 UNIT SUBCUT (11:41)
--- NOTE | 2019-06-03 11:48 | PC.NURSE ---
Day Shift- discharge summary packet reviewed with pt and his brother Domo at bedside. Pt noted discrepancy with Lantus dosing. Clarified with Dr. Hussein at 1130, pt to have Lantus 28units BID and to have a dose now prior to discharge as pt last had 06/02/19 evening. Medication list re-printed for pt reference. No other voiced concerns. Pt aware to make F/U appointment with PCP for in a week to 2 weeks. Pt's belongings of wallet and contents and a set of keys retrieved from unit safe and given back to pt. Pt agrees all contents retrieved. No further voiced concerns. Pt left unit at 1148 via wheelchair in no distress with [employer] escort and his brother Domo to drive him home.
== END 2019-06-03 11:48 | disposition home or self-care (01) ==
LOC: ED 06-02 00:11 → AC 06-02 00:46 → ICU 06-02 00:52 → AC 06-02 12:58
PROVIDERS: Admitting Provider Nurse Practitioner Gerontology; Emergency Provider Emergency Medicine; Visit Provider Nurse Practitioner Gerontology
DX: E11.65 Type 2 diabetes mellitus with hyperglycemia (principal); R41.82 Altered mental status, unspecified; N17.9 Acute kidney failure, unspecified; E86.0 Dehydration; Z79.4 Long term (current) use of insulin; E78.5 Hyperlipidemia, unspecified; H53.9 Unspecified visual disturbance
CPT/HCPCS: 36415; 80053; 81003; 82009; 82805; 82947; 82962; 83735; 85025; 85651; 86140; 96361; 96365; 96366; 96372; 99285; G0378

== ENCOUNTER 2019-06-05 20:43 | Emergency (ER) | payer OTHER, MEDICAID, SELFPAY ==
[2019-06-02 01:23] VITALS: BMI 29.0
[2019-06-05 21:01] VITALS: BP 171/98; PULSE 94; RESP 18; TEMP 36.8; O2SAT 100
--- NOTE | 2019-06-05 21:23 | ED.WEAKNESS ---
HPI - Weakness <Jassi Pardo DO - Last Filed: 06/07/19 17:25> General Chief complaint: Weakness Stated complaint: vision changes, balance issues Time Seen by Provider: 06/05/19 20:45 Source: patient Mode of arrival: Ambulatory Limitations: no limitations History of Present Illness HPI Narrative: 53-year-old male of hypertension and diabetes presents for the 3rd time in as many weeks. Today he presents with his cousin and a chief complaint of confusion, trouble walking and vision change. He is very unclear about the time of onset but thinks it has been for the past few days. His confusion, per his cousin is that he has had episodes of being unclear about where he is, what he is doing, etc.. His vision change is that his entire visual field with both eyes is blurry, he can see shapes and movement but no definite objects. He denies any significant headache, injury nor fever or neck pain. He denies any medication change or dietary change. He denies any recent travel. He is not using any new supplements or herbal remedies. He denies any psychiatric history. Finally he states that for the past few days he has had a difficult time ambulating and feels unsteady. His cousin states that even when standing still he is rocking back and forth and has to reach out for the wall. The patient denies knowing if his instability is related to his decreased vision or not. The patient has a complicated recent history including an admission for hypertensive urgency and a 2nd for diabetic emergency with blood sugars in the 600s. He denies any alcohol history, unknown male nutritional states, gastric surgeries or psychiatric history. He had the full stroke MRI on May 26 noting no significant findings. Patient continues to report a visual disturbance out of his right eye which results in the occasional visual hallucination which has been ongoing and is part of the reason for the stroke MRI. Complaint: generalized weakness Onset (ago): day(s) Duration: constant Location: generalized Migration: none Severity: moderate Relieving factors: none Exacerbating factors: none Associated symptoms: headaches and other Related Data Home Medications Medication Instructions Recorded Confirmed aspirin 81 mg PO DAILY 05/26/19 06/06/19 atorvastatin 40 mg PO DAILY 05/26/19 06/06/19 hydrochlorothiazide 12.5 mg PO QAM 05/26/19 06/06/19 metformin 1,000 mg PO BID 05/26/19 06/06/19 Previous Rx's Medication Instructions Recorded amlodipine [Norvasc] 5 mg PO DAILY #30 tab 05/28/19 blood-glucose meter [Glucocard 01 #1 each 05/28/19 Meter] glucose 4 gram PO Q15M PRN #14 tab 05/28/19 insulin glargine [Lantus Solostar 28 unit SUBCUT BID 30 Days #16.8 ml 06/03/19 U-100 Insulin] Allergies Allergy/AdvReac Type Severity Reaction Status Date / Time No Known Drug Allergies Allergy Verified 05/26/19 10:03 Review of Systems <Jassi Pardo, DO - Last Filed: 06/07/19 17:25> Constitutional Constitutional: Denies chills, Denies fatigue, Denies fever(s), Denies frequent falls, Reports headache(s), Denies lethargy and Denies weakness Eyes Eyes: Reports blurry vision, Reports change in vision, Denies eye discharge, Denies irritation and Reports loss of vision ENT Ears, Nose, Mouth, and Throat: Denies change in voice, Denies dizziness, Reports headache(s), Denies neck pain, Denies sore throat and Denies throat swelling Cardiovascular Cardiovascular: Denies chest pain, Denies irregular heart rhythm, Denies lightheadedness, Denies palpitations, Denies dyspnea, Denies dyspnea on exertion and Denies orthopnea Respiratory Respiratory: Denies cough, Denies dyspnea, Denies dyspnea on exertion and Denies wheezing Gastrointestinal Gastrointestinal: Denies abdominal pain, Denies change in bowel habits, Denies diarrhea, Denies nausea and Denies vomiting Genitourinary Genitourinary: Denies hematuria, Denies flank pain, Denies urinary incontinence and Denies urinary urgency Musculoskeletal Musculoskeletal: Reports abnormal gait, Denies back pain, Denies muscle weakness, Denies neck pain, Denies numbness and Denies tingling Integumentary/Breasts Skin/Breast: Denies pruritus, Denies erythema, Denies rash and Denies wounds Neurologic Neurologic: Reports abnormal gait, Denies behavioral changes, Reports confusion, Denies dizziness, Denies frequent falls, Reports headache(s), Reports lack of coordination, Reports loss of vision, Denies numbness, Reports other visual disturbances, Denies tingling and Denies weakness Psychiatric Psychiatric: Denies anxiety, Denies behavioral changes, Reports confusion, Denies depression, Denies homicidal ideation and Denies suicidal ideation Endocrine Endocrine: Denies fatigue, Denies flushing and Denies palpitations Hematologic/Lymphatic Hematologic/Lymphatic: Denies easy bruising Allergic/Immunologic Allergic/Immunologic: Denies urticaria, Denies throat swelling and Denies wheezing Patient History <Jassi Pardo DO - Last Filed: 06/07/19 17:25> Medical History Diabetes (Acute) Dyslipidemia (Acute) Hypertension (Acute) Palpitations (Acute) Surgical History No pertinent past surgical history (Acute) Social History household members: family Smoking Status: Never smoker alcohol intake: never Smoking Status: Never smoker alcohol intake frequency: 0-2 drinks per day Substance Use Type: does not use Exam <Jassi Pardo DO - Last Filed: 06/07/19 17:25> Narrative Exam Narrative: GENERAL: [53] year old patient appears stated age. Well-nourished, well-developed patient, in mild distress. Visibly upset, relatively flat affect, frequently looking up into the right. When I speak he looks and my direction but is unable to main obtain eye contact HEAD: Atraumatic. Normocephalic. EYES: Pupils equal round and reactive. Extraocular motions intact. No scleral icterus. No injection or drainage. No nystagmus noted. No obvious visual field cut, however patient visualization is only vague she and motion. Bedside US notes no obvious retinal detachment bilateraly. Optic nerve sheath diameters 3.3mm bilaterally ENT: Nose without bleeding, purulent drainage. Throat without erythema, tonsillar hypertrophy or exudate. Airway patent. NECK: Trachea midline. Non tender CARDIOVASCULAR: Regular rate and rhythm without murmurs, gallops, or rubs. RESPIRATORY: Clear to auscultation. Breath sounds equal bilaterally. No wheezes, rales, or rhonchi. GASTROINTESTINAL: Abdomen soft, non-tender, nondistended. EXTREMITIES: No edema or joint tenderness. BACK: Nontender without deformity or crepitance. No flank tenderness. NEURO: AOx3. Proprioception intact. Patient able to distinguish 2 point discrimination and distinguish cold and warm SKIN: No rash or erythema of visible areas Initial Vital Signs Initial Vital Signs: Vital Signs Temperature 98.3 F 06/05/19 21:01 Pulse Rate 94 H 06/05/19 21:01 Respiratory Rate 18 06/05/19 21:01 Blood Pressure 171/98 H 06/05/19 21:01 Pulse Oximetry 100 06/05/19 21:01 <Rita Gilbert MD - Last Filed: 06/06/19 18:47> Initial Vital Signs Initial Vital Signs: Vital Signs Temperature 98.3 F 06/05/19 21:01 Pulse Rate 94 H 06/05/19 21:01 Respiratory Rate 18 06/05/19 21:01 Blood Pressure 171/98 H 06/05/19 21:01 Pulse Oximetry 100 06/05/19 21:01 Scores <Jassi Pardo DO - Last Filed: 06/07/19 17:25> NIH Stroke Scale Level of Conciousness: Alert, keenly responsive Ask month/age: Answers both questions correctly. Open/close eyes, close hand: Performs both tasks correctly Best gaze horizontal: Normal Visual wang: No visual loss Facial palsy: Normal symetrical movement Left arm drift: No drift for full 10 sec Right arm drift: No drift for full 10 sec Left leg drift: No drift for full 10 sec Right leg drift: No drift for full 10 sec Limb ataxia: Absent Sensory on face/arms/legs: Normal, no sensory loss Best language: No aphasia, normal Dysarthria: Normal Extinction or inattention: No abnormality Total NIH Stroke scale score: 0 Citation:: Though not a measurable deficit when the patient is standing he has a difficult time maintaining an upright posture and is unsteady at a level greater than that which would be consistent with visual field cut Course <DO Thomas Doan Last Filed: 06/07/19 17:25> Course Course Narrative: Multiple diagnoses considered including stroke, psychiatric illness, metabolic derangement, vitamin deficiency such as were neck ease, and other neurologic conditions such as reversible posterior leukoencephalopathy Orders Ordered: Discontinued Medications Amlodipine Besylate (Norvasc) 5 mg PO DAILY [facility] Last Admin: 06/06/19 09:40 Dose: 5 mg Documented by: LLUVIA Aspirin (Aspirin Chew) 81 mg PO DAILY [facility] Last Admin: 06/06/19 09:39 Dose: 81 mg Documented by: LLUVIA Atorvastatin Calcium (Lipitor) 40 mg PO DAILY [facility] Last Admin: 06/06/19 09:37 Dose: 40 mg Documented by: LLUVIA Hydrochlorothiazide (Hydrochlorothiazide) 12.5 mg PO DAILY [facility] Last Admin: 06/06/19 09:39 Dose: 12.5 mg Documented by: LLUVIA Sodium Chloride (Normal Saline 0.9%) 1,000 mls @ 150 mls/hr IV CONT [facility] Last Infusion: 06/06/19 05:22 Dose: 0 mls/hr Documented by: Admin: 06/05/19 22:02 Dose: 150 mls/hr Documented by: KELSEY Thiamine HCl 400 mg/ Sodium (Chloride) 54 mls @ 216 mls/hr IV NOW ONE Stop: 06/06/19 00:42 Last Infusion: 06/06/19 01:19 Dose: 0 mls/hr Documented by: Admin: 06/06/19 00:51 Dose: 216 mls/hr Documented by: MELVA Insulin Glargine (Lantus Solostar (Pen)) 28 unit SUBCUT BID [facility] Last Admin: 06/06/19 10:14 Dose: 28 unit Documented by: LLUVIA Cosigned by: KIRAN Ketorolac Tromethamine (Toradol) 15 mg IV NOW ONE Stop: 06/06/19 00:42 Last Admin: 06/06/19 00:51 Dose: 15 mg Documented by: MELVA Metformin HCl (Glucophage) 1,000 mg PO 0800,1700 [facility] Last Admin: 06/06/19 09:43 Dose: 1,000 mg Documented by: LLUVIA Thiamine HCl (Vitamin B-1) 100 mg IV NOW ONE Stop: 06/05/19 21:03 Last Admin: 06/05/19 22:01 Dose: 100 mg Documented by: KELSEY Reevaluation(s) Reevaluation #1: little to no change after toradol or thiamine Reevaluation #2: patient continues to have visual problems. Ambulates with difficulty. When asked to identify his brother he is unable to name him, but can name rest of family. Consultations Consultation #1: extensive conversation with neurology at [facility]. Considerations include PRES, demyelnating disease. No need for LP unless MRI/MRA/MRV has findings to dictate one is needed. No need for transfer at this time. Recommends admission and MRI brain with/without, MRA head (don't need neck), MRVenogram head. Consultation #2: call to hospitalist whom is unable to accept admission given two recent admissions without definitive findings, states patient needs facility with in house neuro. call back to [facility]. at least 16-18 hour wait. Face sheet faxed. Images pushed. call to [facility]. Full. No beds. call to . No beds. Images pushed. Face sheet faxed. [phone] - [facility] cannot accept patient or move forward at least until requested MRs are completed. Vital Signs Vital signs: Vital Signs - 8 hr 06/06/19 02:08 06/06/19 03:07 06/06/19 04:25 Temperature Pulse Rate 75 76 76 Respiratory Rate 20 18 18 Blood Pressure [Left Arm] 143/79 H 149/71 H 140/79 Pulse Oximetry 100 98 99 06/06/19 05:30 06/06/19 08:12 Temperature 98.7 F Pulse Rate 71 94 H Respiratory Rate 18 16 Blood Pressure [Left Arm] 135/85 115/85 Pulse Oximetry 100 99 <Rita Gilbert MD - Last Filed: 06/06/19 18:47> Orders Ordered: Discontinued Medications Amlodipine Besylate (Norvasc) 5 mg PO DAILY [facility] Last Admin: 06/06/19 09:40 Dose: 5 mg Documented by: LLUVIA Aspirin (Aspirin Chew) 81 mg PO DAILY [facility] Last Admin: 06/06/19 09:39 Dose: 81 mg Documented by: LLUVIA Atorvastatin Calcium (Lipitor) 40 mg PO DAILY [facility] Last Admin: 06/06/19 09:37 Dose: 40 mg Documented by: MARTELLANCE Hydrochlorothiazide (Hydrochlorothiazide) 12.5 mg PO DAILY [facility] Last Admin: 06/06/19 09:39 Dose: 12.5 mg Documented by: LLUVIA Sodium Chloride (Normal Saline 0.9%) 1,000 mls @ 150 mls/hr IV CONT [facility] Last Infusion: 06/06/19 05:22 Dose: 0 mls/hr Documented by: Admin: 06/05/19 22:02 Dose: 150 mls/hr Documented by: KELSEY Thiamine HCl 400 mg/ Sodium (Chloride) 54 mls @ 216 mls/hr IV NOW ONE Stop: 06/06/19 00:42 Last Infusion: 06/06/19 01:19 Dose: 0 mls/hr Documented by: Admin: 06/06/19 00:51 Dose: 216 mls/hr Documented by: MELVA Insulin Glargine (Lantus Solostar (Pen)) 28 unit SUBCUT BID [facility] Last Admin: 06/06/19 10:14 Dose: 28 unit Documented by: LLUVIA Cosigned by: KIRAN Ketorolac Tromethamine (Toradol) 15 mg IV NOW ONE Stop: 06/06/19 00:42 Last Admin: 06/06/19 00:51 Dose: 15 mg Documented by: MELVA Metformin HCl (Glucophage) 1,000 mg PO 0800,1700 [facility] Last Admin: 06/06/19 09:43 Dose: 1,000 mg Documented by: LLUVIA Thiamine HCl (Vitamin B-1) 100 mg IV NOW ONE Stop: 06/05/19 21:03 Last Admin: 06/05/19 22:01 Dose: 100 mg Documented by: KELSEY Reevaluation(s) Reevaluation #1: 06/06/2019 9:[address] Tripathi, neurology at [facility], to review imaging and events of the evening. Imaging reviewed. PRES, acute infarct, dural sinus thrombosis all ruled OUT. Sugars and blood pressure appropriate this morning. All morning medications have been ordered. Patient is examined this morning. He is frustrated that there are no findings. He understands that he has ignored his diabetes and M blood pressures for a number of years but is expecting immediate fix to his vision issues. He is reassured regarding lack of findings on the MRI studies. He still continues to complain of a right partial geoff anopsia mostly blurred vision and darkness. Will see if ophthalmology can see him today. He has not had a chance to follow-up with an outpatient provider to reestablish care regarding the diabetes the blood pressure. These numbers do look significantly improved with his current medication regimen from inpatient stays last week. 9:[address] Hunter, ophthalmology. Reviewed presentation visual complaints and unremarkable MRI findings. Have arranged for outpatient ophthalmology consult this morning. At this time, there is no evidence of acute neurologic incident that needs hospital admission. He is psychiatrically appropriate been able to care for himself with capacity for home discharge. [facility] ophthalmology has been arranged. From there he will need to follow-up with the primary care physician and may need outpatient neurocognitive evaluation as well as psychiatric evaluation and neurology follow-up Vital Signs Vital signs: Vital Signs - 8 hr 06/06/19 02:08 06/06/19 03:07 06/06/19 04:25 Temperature Pulse Rate 75 76 76 Respiratory Rate 20 18 18 Blood Pressure [Left Arm] 143/79 H 149/71 H 140/79 Pulse Oximetry 100 98 99 06/06/19 05:30 06/06/19 08:12 Temperature 98.7 F Pulse Rate 71 94 H Respiratory Rate 18 16 Blood Pressure [Left Arm] 135/85 115/85 Pulse Oximetry 100 99 MDM - Weakness <Jassi Pardo, - Last Filed: 06/07/19 17:25> Lab Data Result diagrams: 06/05/19 21:45 06/05/19 21:45 Labs: Lab Results 06/05/19 06/05/19 06/05/19 Range/Units 21:45 21:45 21:45 WBC 9.9 (4.5-11.0) X10^3/uL RBC 4.29 L (4.5-5.9) X10^6/uL Hgb 12.3 L (13.5-17.5) g/dL Hct 35.1 L (41-53) % MCV 81.8 (80-100) fL MCH 28.8 (26-34) PG MCHC 35.1 (30-36) % RDW 14.7 (11.6-14.8) % Plt Count 347 (150-400) X10^3/uL Neut % (Auto) 62.5 (50-75) % Lymph % (Auto) 29.8 (25-40) % [place] % (Auto) 5.6 (3-14) % Eos % (Auto) 1.3 L (2-4) % Baso % (Auto) 0.8 (0-2) % Neut # (Auto) 6200 (1467-6476) /uL Lymph # (Auto) 2900 (1879-7151) /uL [place] # (Auto) 500 (0-900) /uL Eos # (Auto) 100 (0-450) /uL Baso # (Auto) 100 (0-100) /uL ESR (0-15) MM/HR PT 13.1 H (10.1-12.7) SECONDS INR 1.1 (0.9-1.3) APTT 34 D (26.4-36.2) SECONDS VBG pH (7.33-7.43) VBG pCO2 (45-50) mmHg VBG pO2 (35-45) mmHg VBG HCO3 (23-28) mmol/L VBG Total CO2 (24-29) mmol/L VBG O2 Saturation (70-75) % VBG Base Excess (0-4) mmol/L Sodium 133 L (137-145) mmol/L Potassium 3.5 D (3.4-5.1) mmol/L Chloride 98 (98-107) mmol/L Carbon Dioxide 27 (22-32) mmol/L BUN 14 (9-20) mg/dL Creatinine 0.80 (0.66-1.25) mg/dL Estimated GFR > 60.0 (>60) mL/min BUN/Creatinine Ratio 17.5 (6-22) Glucose 163 H (70-100) mg/dL Calcium 8.7 (8.4-10.2) mg/dL C-Reactive Protein (<1.0) mg/dL TSH (0.47-4.68) uIU/mL Thyroxine (T4) (5.5-11.0) ug/dL U Opiates 300ng/mL cut (Negative) Ur Oxycodone Screen (Negative) Urine Methadone Screen (Negative) Ur Barbiturates Screen (Negative) U Tricyclic Antidepress (Negative) Ur Phencyclidine Scrn (Negative) Ur Amphetamines Screen (Negative) U Methamphetamines Scrn (Negative) Ur MDMA Scrn (Ecstasy) (Negative) U Benzodiazepines Scrn (Negative) Urine Cocaine Screen (Negative) U Marijuana (THC) Screen (Negative) 06/05/19 06/05/19 06/05/19 Range/Units 21:45 21:45 22:10 WBC (4.5-11.0) X10^3/uL RBC (4.5-5.9) X10^6/uL Hgb (13.5-17.5) g/dL Hct (41-53) % MCV (80-100) fL MCH (26-34) PG MCHC (30-36) % RDW (11.6-14.8) % Plt Count (150-400) X10^3/uL Neut % (Auto) (50-75) % Lymph % (Auto) (25-40) % [place] % (Auto) (3-14) % Eos % (Auto) (2-4) % Baso % (Auto) (0-2) % Neut # (Auto) (1485-7770) /uL Lymph # (Auto) (5682-5305) /uL [place] # (Auto) (0-900) /uL Eos # (Auto) (0-450) /uL Baso # (Auto) (0-100) /uL ESR 33 H (0-15) MM/HR PT (10.1-12.7) SECONDS INR (0.9-1.3) APTT (26.4-36.2) SECONDS VBG pH (7.33-7.43) VBG pCO2 (45-50) mmHg VBG pO2 (35-45) mmHg VBG HCO3 (23-28) mmol/L VBG Total CO2 (24-29) mmol/L VBG O2 Saturation (70-75) % VBG Base Excess (0-4) mmol/L Sodium (137-145) mmol/L Potassium (3.4-5.1) mmol/L Chloride (98-107) mmol/L Carbon Dioxide (22-32) mmol/L BUN (9-20) mg/dL Creatinine (0.66-1.25) mg/dL Estimated GFR (>60) mL/min BUN/Creatinine Ratio (6-22) Glucose (70-100) mg/dL Calcium (8.4-10.2) mg/dL C-Reactive Protein (<1.0) mg/dL TSH 1.53 D (0.47-4.68) uIU/mL Thyroxine (T4) 7.50 (5.5-11.0) ug/dL U Opiates 300ng/mL cut Negative (Negative) Ur Oxycodone Screen Negative (Negative) Urine Methadone Screen Negative (Negative) Ur Barbiturates Screen Negative (Negative) U Tricyclic Antidepress Negative (Negative) Ur Phencyclidine Scrn Negative (Negative) Ur Amphetamines Screen Negative (Negative) U Methamphetamines Scrn Negative (Negative) Ur MDMA Scrn (Ecstasy) Negative (Negative) U Benzodiazepines Scrn Negative (Negative) Urine Cocaine Screen Negative (Negative) U Marijuana (THC) Screen Negative (Negative) 06/05/19 06/05/19 Range/Units 23:28 23:28 WBC (4.5-11.0) X10^3/uL RBC (4.5-5.9) X10^6/uL Hgb (13.5-17.5) g/dL Hct (41-53) % MCV (80-100) fL MCH (26-34) PG MCHC (30-36) % RDW (11.6-14.8) % Plt Count (150-400) X10^3/uL Neut % (Auto) (50-75) % Lymph % (Auto) (25-40) % [place] % (Auto) (3-14) % Eos % (Auto) (2-4) % Baso % (Auto) (0-2) % Neut # (Auto) (1890-1178) /uL Lymph # (Auto) (4756-8414) /uL [place] # (Auto) (0-900) /uL Eos # (Auto) (0-450) /uL Baso # (Auto) (0-100) /uL ESR (0-15) MM/HR PT (10.1-12.7) SECONDS INR (0.9-1.3) APTT (26.4-36.2) SECONDS VBG pH 7.45 H (7.33-7.43) VBG pCO2 39.9 L (45-50) mmHg VBG pO2 23 L (35-45) mmHg VBG HCO3 28 (23-28) mmol/L VBG Total CO2 29 (24-29) mmol/L VBG O2 Saturation 42 L (70-75) % VBG Base Excess 4.0 (0-4) mmol/L Sodium (137-145) mmol/L Potassium (3.4-5.1) mmol/L Chloride (98-107) mmol/L Carbon Dioxide (22-32) mmol/L BUN (9-20) mg/dL Creatinine (0.66-1.25) mg/dL Estimated GFR (>60) mL/min BUN/Creatinine Ratio (6-22) Glucose (70-100) mg/dL Calcium (8.4-10.2) mg/dL C-Reactive Protein 0.5 (<1.0) mg/dL TSH (0.47-4.68) uIU/mL Thyroxine (T4) (5.5-11.0) ug/dL U Opiates 300ng/mL cut (Negative) Ur Oxycodone Screen (Negative) Urine Methadone Screen (Negative) Ur Barbiturates Screen (Negative) U Tricyclic Antidepress (Negative) Ur Phencyclidine Scrn (Negative) Ur Amphetamines Screen (Negative) U Methamphetamines Scrn (Negative) Ur MDMA Scrn (Ecstasy) (Negative) U Benzodiazepines Scrn (Negative) Urine Cocaine Screen (Negative) U Marijuana (THC) Screen (Negative) Point of Care Testing Glucose POC 134 Urine Dip Bedside Urine Glucose 250 mg/dl Bedside Urine Bilirubin - Negative Bedside Urine Ketone - Negative Urine Specific [place] 1.015 Bedside Urine Occult Blood - Negative Bedside Urine pH 6.0 Bedside Urine Protein - Negative Bedside Urine Urobilinogen - Negative Bedside Urine Nitrite - Negative Bedside Urine Leukocytes - Negative Esterase <Rita Gilbert MD - Last Filed: 06/06/19 18:47> Medical Records Attestation: I reviewed the patient's medical records. Lab Data Attestation: I reviewed the patient's lab results. Labs: Lab Results 06/05/19 06/05/19 06/05/19 Range/Units 21:45 21:45 21:45 WBC 9.9 (4.5-11.0) X10^3/uL RBC 4.29 L (4.5-5.9) X10^6/uL Hgb 12.3 L (13.5-17.5) g/dL Hct 35.1 L (41-53) % MCV 81.8 (80-100) fL MCH 28.8 (26-34) PG MCHC 35.1 (30-36) % RDW 14.7 (11.6-14.8) % Plt Count 347 (150-400) X10^3/uL Neut % (Auto) 62.5 (50-75) % Lymph % (Auto) 29.8 (25-40) % [place] % (Auto) 5.6 (3-14) % Eos % (Auto) 1.3 L (2-4) % Baso % (Auto) 0.8 (0-2) % Neut # (Auto) 6200 (7611-6298) /uL Lymph # (Auto) 2900 (1907-5354) /uL [place] # (Auto) 500 (0-900) /uL Eos # (Auto) 100 (0-450) /uL Baso # (Auto) 100 (0-100) /uL ESR (0-15) MM/HR PT 13.1 H (10.1-12.7) SECONDS INR 1.1 (0.9-1.3) APTT 34 D (26.4-36.2) SECONDS VBG pH (7.33-7.43) VBG pCO2 (45-50) mmHg VBG pO2 (35-45) mmHg VBG HCO3 (23-28) mmol/L VBG Total CO2 (24-29) mmol/L VBG O2 Saturation (70-75) % VBG Base Excess (0-4) mmol/L Sodium 133 L (137-145) mmol/L Potassium 3.5 D (3.4-5.1) mmol/L Chloride 98 (98-107) mmol/L Carbon Dioxide 27 (22-32) mmol/L BUN 14 (9-20) mg/dL Creatinine 0.80 (0.66-1.25) mg/dL Estimated GFR > 60.0 (>60) mL/min BUN/Creatinine Ratio 17.5 (6-22) Glucose 163 H (70-100) mg/dL Calcium 8.7 (8.4-10.2) mg/dL C-Reactive Protein (<1.0) mg/dL TSH (0.47-4.68) uIU/mL Thyroxine (T4) (5.5-11.0) ug/dL U Opiates 300ng/mL cut (Negative) Ur Oxycodone Screen (Negative) Urine Methadone Screen (Negative) Ur Barbiturates Screen (Negative) U Tricyclic Antidepress (Negative) Ur Phencyclidine Scrn (Negative) Ur Amphetamines Screen (Negative) U Methamphetamines Scrn (Negative) Ur MDMA Scrn (Ecstasy) (Negative) U Benzodiazepines Scrn (Negative) Urine Cocaine Screen (Negative) U Marijuana (THC) Screen (Negative) 06/05/19 06/05/19 06/05/19 Range/Units 21:45 21:45 22:10 WBC (4.5-11.0) X10^3/uL RBC (4.5-5.9) X10^6/uL Hgb (13.5-17.5) g/dL Hct (41-53) % MCV (80-100) fL MCH (26-34) PG MCHC (30-36) % RDW (11.6-14.8) % Plt Count (150-400) X10^3/uL Neut % (Auto) (50-75) % Lymph % (Auto) (25-40) % [place] % (Auto) (3-14) % Eos % (Auto) (2-4) % Baso % (Auto) (0-2) % Neut # (Auto) (8240-2090) /uL Lymph # (Auto) (7490-3416) /uL [place] # (Auto) (0-900) /uL Eos # (Auto) (0-450) /uL Baso # (Auto) (0-100) /uL ESR 33 H (0-15) MM/HR PT (10.1-12.7) SECONDS INR (0.9-1.3) APTT (26.4-36.2) SECONDS VBG pH (7.33-7.43) VBG pCO2 (45-50) mmHg VBG pO2 (35-45) mmHg VBG HCO3 (23-28) mmol/L VBG Total CO2 (24-29) mmol/L VBG O2 Saturation (70-75) % VBG Base Excess (0-4) mmol/L Sodium (137-145) mmol/L Potassium (3.4-5.1) mmol/L Chloride (98-107) mmol/L Carbon Dioxide (22-32) mmol/L BUN (9-20) mg/dL Creatinine (0.66-1.25) mg/dL Estimated GFR (>60) mL/min BUN/Creatinine Ratio (6-22) Glucose (70-100) mg/dL Calcium (8.4-10.2) mg/dL C-Reactive Protein (<1.0) mg/dL TSH 1.53 D (0.47-4.68) uIU/mL Thyroxine (T4) 7.50 (5.5-11.0) ug/dL U Opiates 300ng/mL cut Negative (Negative) Ur Oxycodone Screen Negative (Negative) Urine Methadone Screen Negative (Negative) Ur Barbiturates Screen Negative (Negative) U Tricyclic Antidepress Negative (Negative) Ur Phencyclidine Scrn Negative (Negative) Ur Amphetamines Screen Negative (Negative) U Methamphetamines Scrn Negative (Negative) Ur MDMA Scrn (Ecstasy) Negative (Negative) U Benzodiazepines Scrn Negative (Negative) Urine Cocaine Screen Negative (Negative) U Marijuana (THC) Screen Negative (Negative) 06/05/19 06/05/19 Range/Units 23:28 23:28 WBC (4.5-11.0) X10^3/uL RBC (4.5-5.9) X10^6/uL Hgb (13.5-17.5) g/dL Hct (41-53) % MCV (80-100) fL MCH (26-34) PG MCHC (30-36) % RDW (11.6-14.8) % Plt Count (150-400) X10^3/uL Neut % (Auto) (50-75) % Lymph % (Auto) (25-40) % Taliaferro % (Auto) (3-14) % Eos % (Auto) (2-4) % Baso % (Auto) (0-2) % Neut # (Auto) (1767-1489) /uL Lymph # (Auto) (9114-0122) /uL Taliaferro # (Auto) (0-900) /uL Eos # (Auto) (0-450) /uL Baso # (Auto) (0-100) /uL ESR (0-15) MM/HR PT (10.1-12.7) SECONDS INR (0.9-1.3) APTT (26.4-36.2) SECONDS VBG pH 7.45 H (7.33-7.43) VBG pCO2 39.9 L (45-50) mmHg VBG pO2 23 L (35-45) mmHg VBG HCO3 28 (23-28) mmol/L VBG Total CO2 29 (24-29) mmol/L VBG O2 Saturation 42 L (70-75) % VBG Base Excess 4.0 (0-4) mmol/L Sodium (137-145) mmol/L Potassium (3.4-5.1) mmol/L Chloride (98-107) mmol/L Carbon Dioxide (22-32) mmol/L BUN (9-20) mg/dL Creatinine (0.66-1.25) mg/dL Estimated GFR (>60) mL/min BUN/Creatinine Ratio (6-22) Glucose (70-100) mg/dL Calcium (8.4-10.2) mg/dL C-Reactive Protein 0.5 (<1.0) mg/dL TSH (0.47-4.68) uIU/mL Thyroxine (T4) (5.5-11.0) ug/dL U Opiates 300ng/mL cut (Negative) Ur Oxycodone Screen (Negative) Urine Methadone Screen (Negative) Ur Barbiturates Screen (Negative) U Tricyclic Antidepress (Negative) Ur Phencyclidine Scrn (Negative) Ur Amphetamines Screen (Negative) U Methamphetamines Scrn (Negative) Ur MDMA Scrn (Ecstasy) (Negative) U Benzodiazepines Scrn (Negative) Urine Cocaine Screen (Negative) U Marijuana (THC) Screen (Negative) Point of Care Testing Glucose POC 134 Urine Dip Bedside Urine Glucose 250 mg/dl Bedside Urine Bilirubin - Negative Bedside Urine Ketone - Negative Urine Specific [place] 1.015 Bedside Urine Occult Blood - Negative Bedside Urine pH 6.0 Bedside Urine Protein - Negative Bedside Urine Urobilinogen - Negative Bedside Urine Nitrite - Negative Bedside Urine Leukocytes - Negative Esterase Imaging Data Head MRA: Radiologist Impression: Anterior circulation: Intracranial internal carotid arteries demonstrate normal size and intraluminal flow signal. The flow within the paired anterior cerebral arteries is normal and symmetric. The flow within the middle cerebral arteries is normal and symmetric. The anterior communicating artery is seen. No stenoses, occlusions, or aneurysms. Posterior circulation: Visualized portions of the vertebral arteries demonstrate normal caliber, and join to form a normal appearing basilar artery. The flow within the posterior cerebral arteries is normal and symmetric. No stenoses, occlusions, or aneurysms. Normal flow signal noted in the dural sinuses. Normal flow signal noted in the vein of Carl and internal cerebral veins. IMPRESSION: Normal examination. Dictated by: Tegan Sanchez MD, PhD on 06/06/2019 at 7:44 Brain MRI: Radiologist Impression: CSF spaces: Basal cisterns are patent. No extra-axial fluid collections. Ventricles are normal in size and shape. Brain: No midline shift. A left posterior fossa arachnoid cyst, as before and unchanged No intracranial bleeds or masses. No abnormal intracranial enhancement. There is cerebral volume loss for age. There is periventricular white matter chronic small vessel ischemic change. The brainstem appears normal. Diffusion-weighted images demonstrate no acute ischemic insults. No chronic ischemic insults. Normal intravascular flow voids are present. Skull and face: Calvarial marrow is normal in signal. Orbits appear normal. Sinuses: Sinuses and mastoids appear clear. IMPRESSION: No evidence of acute ischemia. No abnormal enhancement. Overall, no interval change since 05/26/19 CT scan - head: Radiologist Impression: IMPRESSION: No acute intracranial disease process. Dictated by: Tegan Sanchez MD, PhD on 06/06/2019 at 7:28 Discharge Plan Departure Patient Disposition: Home Clinical Impression: Change in vision, Dyslipidemia Hypertension Qualifiers: Hypertension type: unspecified Qualified Code(s): I10 - Essential (primary) hypertension Diabetes Qualifiers: Diabetes mellitus type: type 2 Diabetes mellitus terminal gauger insulin use: unspecified terminal gauger insulin use status Discharge Date/Time: 06/06/19 10:35 Activity Restrictions/Additional Instructions: Thank you for coming back today. You have had multiple MRI studies of your brain and the blood vessels in your brain looking for strokes, reversible stroke-like processes, tumors masses, blood clots, and any other brain/neurologic related explanation for your acute visual changes. These studies have been reviewed by radiology as well as the Stroke Neurology team at [facility]. Fortunately, there are no life-threatening issues that have been identified on the extensive brain imaging studies done The next step in trying to figure out why you are having this acute vision change is an outpatient ophthalmology examination. I have spoken with Dr. Hunter, physician on-call with [facility] physician and surgeons. From the emergency room, I am going to have you go to their office to be worked in to the schedule by 1 of the ophthalmologists today. You do need to continue your insulin, aspirin, cholesterol and blood pressure medications and follow-up with your primary care physician next week. If the welcome wagon hostess does not have an obvious physical an explanation for your visual change your primary care physician will need to help you work through outpatient neurology consultation and see what further recommended outpatient workup will be. There is nothing else that needs to be done in the hospital and you do not need to be admitted to the hospital at this time Please go over to the shared lobby lobby of [facility] surgeons and physicians and [facility]. They will see you today as soon as they are able to work you into their schedule I hope you are able to find a reasonable explanation for your symptoms and that they resolve completely. Prescriptions: No Action atorvastatin 40 mg Tablet 40 mg PO DAILY RF: 0 metformin 1,000 mg Tablet 1,000 mg PO BID RF: 0 hydrochlorothiazide 12.5 mg Capsule 12.5 mg PO QAM RF: 0 aspirin 81 mg Tablet,Chewable 81 mg PO DAILY RF: 0 amlodipine [Norvasc] 5 mg Tablet 5 mg PO DAILY Qty: 30 RF: 0 glucose 4 gram tablet,chewable 4 gram PO Q15M PRN (Reason: hypoglycemia) Qty: 14 RF: 0 (DME) blood-glucose meter [Glucocard 01 Meter] Kit See Rx Instructions .ROUTE .MEDSUPPLY Qty: 1 RF: 0 Lantus Solostar U-100 Insulin 100 unit/mL (3 mL) insulin pen 28 unit SUBCUT BID 30 Days Qty: 16.8 RF: 0
[2019-06-05 22:00] LABS: Add Manual Diff / Slide Review NO; Basophils Absolute Auto 100 /uL (0-100); Basophils Percent Auto 0.8 % (0-2); Eosinophils Absolute Auto 100 /uL (0-450); Eosinophils Percent Auto 1.3 % (2-4); Hematocrit 35.1 % (41-53); Hemoglobin 12.3 g/dL (13.5-17.5); Lymphocytes Absolute Auto 2900 /uL (1100-4500); Lymphocytes Percent Auto 29.8 % (25-40); Mean Corpuscular HGB Conc 35.1 % (30-36); Mean Corpuscular Hemoglobin 28.8 PG (26-34); Mean Corpuscular Volume 81.8 fL (80-100); Monocytes Absolute Auto 500 /uL (0-900); Monocytes Percent Auto 5.6 % (3-14); Neutrophils Absolute Auto 6200 /uL (1500-7000); Neutrophils Percent Auto 62.5 % (50-75); Platelet Count 347 X10^3/uL (150-400); Red Blood Cell Count 4.29 X10^6/uL (4.5-5.9); Red Cell Distribution Width 14.7 % (11.6-14.8); White Blood Cell Count 9.9 X10^3/uL (4.5-11.0)
[2019-06-05] MEDS: THIAMINE 200 MG/2 ML VIAL 100 MG IV (22:01)
[2019-06-05] MEDS: SODIUM CHLORIDE 0.9% 1,000 ML 150 ML IV (22:02)
[2019-06-05 22:04] LABS: INR 1.1 (0.9-1.3); Prothrombin Time 13.1 SECONDS (10.1-12.7)
[2019-06-05 22:06] LABS: PTT Partial Thromboplastin Tim 34 SECONDS (26.4-36.2)
[2019-06-05 22:08] LABS: BUN Creatinine Ratio 17.5 (6-22); Blood Urea Nitrogen 14 mg/dL (9-20); Calcium 8.7 mg/dL (8.4-10.2); Carbon Dioxide 27 mmol/L (22-32); Chloride 98 mmol/L (98-107); Estimated Glomerular Filt Rate > 60.0 mL/min (>60); Glucose 163 mg/dL (70-100); HEMOLYSIS 16 (0-50); Potassium 3.5 mmol/L (3.4-5.1); Sodium 133 mmol/L (137-145)
[2019-06-05 22:25] VITALS: BP 171/98; PULSE 73; O2SAT 100
[2019-06-05 23:42] LABS: HCO3 VBG 28 mmol/L (23-28); Oxygen Saturation VBG 42 % (70-75); PCO2 VBG 39.9 mmHg (45-50); PO2 VBG 23 mmHg (35-45); Total CO2 VBG 29 mmol/L (24-29); pH VBG 7.45 (7.33-7.43)
[2019-06-05 23:43] VITALS: BP 139/80; PULSE 75; RESP 16; O2SAT 100
[2019-06-06] VITALS (7 sets, daily range): BP systolic 115–164; BP diastolic 71–86; PULSE 71–94; RESP 12–20; TEMP 36.8–37.1; O2SAT 96–100
[2019-06-06 00:49] LABS: Thyroid Stimulating Hormone 1.53 uIU/mL (0.47-4.68)
[2019-06-06] MEDS: KETOROLAC 60 MG/2 ML VIAL 15 MG IV (00:51)
[2019-06-06] MEDS: THIAMINE 400 MG in SODIUM CHLORIDE 0.9% 50 ML 216 ML IV (00:51)
--- NOTE | 2019-06-06 01:18 | DI.CT.S_ITS ---
PROCEDURE: CT HEAD/BRAIN WO CON INDICATIONS: visual changes, balance issues TECHNIQUE: Noncontrast 4.5 mm thick angled axial sections acquired from the foramen magnum to the vertex, with coronal and sagittal reformats. For radiation dose reduction, the following was used: automated exposure control, adjustment of mA and/or kV according to patient size. COMPARISON: [facility], CT, CT STROKE, 05/26/2019, 9:37. [facility], MR, MR STROKE, 05/26/2019, 15:15. FINDINGS: Image quality: Excellent. CSF spaces: Basal cisterns are patent. Left posterior fossa arachnoid cyst is stable. The ventricles are symmetric in size and shape. Brain: No intracranial bleeds or masses. There is cerebral volume loss for age, with resultant ventricular and sulcal prominence. There are periventricular and deep white matter chronic small vessel ischemic changes. There is intracranial internal carotid artery atherosclerosis. Skull and face: Calvarium and visualized facial bones appear intact, without suspicious lesions. Sinuses: Visualized sinuses and mastoids are clear. IMPRESSION: No acute intracranial disease process. Dictated by: Tegan Sanchez MD, PhD on 06/06/2019 at 7:28 Approved by: Tegan Sanchez MD, PhD on 06/06/2019 at 7:30
[2019-06-06 01:43] LABS: C-Reactive Protein Quant 0.5 mg/dL (<1.0)
[2019-06-06 01:51] LABS: Erythrocyte Sedimentation Rate 33 MM/HR (0-15)
[2019-06-06 02:34] LABS: UR Morphine/Opiate cutoff 300 Negative (Negative); Ur Creatinine Normal (Normal); Ur Specific Gravity Normal (Normal); Urine Amphetamines Negative (Negative); Urine Barbiturates Negative (Negative); Urine Benzodiazepines Negative (Negative); Urine Cocaine Negative (Negative); Urine MDMA Negative (Negative); Urine Methadone Negative (Negative); Urine Methamphetamines Negative (Negative); Urine Oxycodone Negative (Negative); Urine Phencyclidine Negative (Negative); Urine Tetrahydrocannabinol Negative (Negative); Urine Tricyclic Antidepressant Negative (Negative); Urine pH Normal (Normal)
--- NOTE | 2019-06-06 05:27 | DI.MRI.S_ITS ---
PROCEDURE: MR HEAD/BRAIN WO/W CON INDICATIONS: vision change, ataxia, confusion TECHNIQUE: Noncontrast axial T1 spin echo, axial T2 fast spin echo, sagittal and axial FLAIR, coronal T2 fast spin echo, axial gradient echo, axial diffusion and ADC through the brain. After the administration of contrast, axial and coronal T1 spin echo with fat saturation through the brain. COMPARISON: [facility], MR, MR STROKE, 05/26/2019, 15:15. FINDINGS: Image quality: Excellent. CSF spaces: Basal cisterns are patent. No extra-axial fluid collections. Ventricles are normal in size and shape. Brain: No midline shift. A left posterior fossa arachnoid cyst, as before and unchanged No intracranial bleeds or masses. No abnormal intracranial enhancement. There is cerebral volume loss for age. There is periventricular white matter chronic small vessel ischemic change. The brainstem appears normal. Diffusion-weighted images demonstrate no acute ischemic insults. No chronic ischemic insults. Normal intravascular flow voids are present. Skull and face: Calvarial marrow is normal in signal. Orbits appear normal. Sinuses: Sinuses and mastoids appear clear. IMPRESSION: No evidence of acute ischemia. No abnormal enhancement. Overall, no interval change since 05/26/19 Dictated by: Gomez Brush M.D. on 06/06/2019 at 8:07 Approved by: Gomez Brush M.D. on 06/06/2019 at 8:15
--- NOTE | 2019-06-06 05:27 | DI.MRI.S_ITS ---
PROCEDURE: MR ANGIO HEAD WO CON INDICATIONS: vision change, confusion, ataxia, per [place] TECHNIQUE: Noncontrast axial 3-D [id number] MR angiogram, with 3-dimensional maximum intensity projection (MIP) reformats of the internal carotid arteries and posterior circulation then performed. COMPARISON: [facility], CT, CT ANGIO HEAD AND NECK, 05/26/2019, 10:22. [facility], CT, CT HEAD/BRAIN WO CON, 06/06/2019, 1:21. FINDINGS: Image quality: Excellent. Anterior circulation: Intracranial internal carotid arteries demonstrate normal size and intraluminal flow signal. The flow within the paired anterior cerebral arteries is normal and symmetric. The flow within the middle cerebral arteries is normal and symmetric. The anterior communicating artery is seen. No stenoses, occlusions, or aneurysms. Posterior circulation: Visualized portions of the vertebral arteries demonstrate normal caliber, and join to form a normal appearing basilar artery. The flow within the posterior cerebral arteries is normal and symmetric. No stenoses, occlusions, or aneurysms. Normal flow signal noted in the dural sinuses. Normal flow signal noted in the vein of Carl and internal cerebral veins. IMPRESSION: Normal examination. Dictated by: Tegan Sanchez MD, PhD on 06/06/2019 at 7:44 Approved by: Tegan Sanchez MD, PhD on 06/06/2019 at 7:47
--- NOTE | 2019-06-06 08:13 | PC.NURSE ---
pt reports he feels confused. answers questions appropriately. aaox4, ate breakfast without difficulty
[2019-06-06] MEDS: ATORVASTATIN 20 MG TABLET 40 MG PO (09:37)
[2019-06-06] MEDS: ASPIRIN 81 MG CHEW TAB PO (09:39)
[2019-06-06] MEDS: hydroCHLOROthiazide 12.5 MG CAPSULE PO (09:39)
[2019-06-06] MEDS: AMLODIPINE 2.5 MG TABLET 5 MG PO (09:40)
[2019-06-06] MEDS: METFORMIN HCL 500 MG TABLET 1000 MG PO (09:43)
[2019-06-06] MEDS: INSULIN GLARGINE 100 UNIT/ML 3ML PEN 28 UNIT SUBCUT (10:14)
== END 2019-06-06 10:35 | disposition home or self-care (01) ==
PROVIDERS: Emergency Medicine; Emergency Provider Emergency Medicine
DX: H53.9 Unspecified visual disturbance (principal); E78.5 Hyperlipidemia, unspecified; I10 Essential (primary) hypertension; E11.8 Type 2 diabetes mellitus with unspecified complications; Z79.4 Long term (current) use of insulin; R41.0 Disorientation, unspecified; R27.0 Ataxia, unspecified
CPT/HCPCS: 36415; 70450; 70544; 70553; 80048; 80305; 81003; 82805; 82962; 84436; 84443; 85025; 85610; 85651; 85730; 86140; 96361; 96365; 96372; 96375; 99284; 99285; J1885

== ENCOUNTER 2019-06-11 05:47 | Emergency (ER) | payer OTHER, MEDICAID, SELFPAY ==
[2019-06-02 01:23] VITALS: BMI 29.0
--- NOTE | 2019-06-11 05:50 | DI.RAD.S_ITS ---
PROCEDURE: XR CHEST 1V INDICATIONS: seizure activity, no known history TECHNIQUE: One view of the chest was acquired. COMPARISON: None. FINDINGS: Surgical changes and devices: None. Lungs and pleura: Lungs are clear. No pleural effusions or pneumothorax. Mediastinum: Mediastinal contours appear normal. Heart size is normal. Bones and chest wall: No suspicious bony lesions. Overlying soft tissues appear unremarkable. IMPRESSION: No acute process. Dictated by: Kristina Odell M.D. on 06/11/2019 at 8:13 Approved by: Kristina Odell M.D. on 06/11/2019 at 8:14
--- NOTE | 2019-06-11 05:50 | DI.CT.S_ITS ---
PROCEDURE: CT HEAD/BRAIN WO CON INDICATIONS: seizure activity, no known history TECHNIQUE: Noncontrast 4.5 mm thick angled axial sections acquired from the foramen magnum to the vertex, with coronal and sagittal reformats. For radiation dose reduction, the following was used: automated exposure control, adjustment of mA and/or kV according to patient size. COMPARISON: [facility], MR, MR ANGIO HEAD WO CON, 06/06/2019, 6:45. [facility], MR, MR HEAD/BRAIN WO/W CON, 06/06/2019, 6:59. [facility], CT, CT HEAD/BRAIN WO CON, 06/06/2019, 1:21. FINDINGS: Image quality: Excellent. CSF spaces: Basal cisterns are patent. There is a 2.1 x 3.3 cm arachnoid cyst in the left posterior fossa, unchanged. Ventricles are normal in size and shape. Brain: Subtle hypodensity in the left temporal lobe. Mild cerebral volume loss. No mass effect or midline shift. No intracranial masses or hemorrhage. Alexander-white matter interface is normal. Skull and face: Calvarium and visualized facial bones are intact, without suspicious lesions. Sinuses: Visualized sinuses and mastoids are clear. IMPRESSION: Subtle hypodensity in the left temporal lobe which may be caused by artifact but MR is suggested for further evaluation in this patient with new onset of seizure. Dictated by: Andrea Savage M.D. on 06/11/2019 at 7:23 Approved by: Andrea Savage M.D. on 06/11/2019 at 7:33
--- NOTE | 2019-06-11 05:59 | ED_ITS ---
HPI - Seizure <Jocelynn Patricio DO - Last Filed: 06/11/19 07:05> General Chief Complaint: Seizure Stated Complaint: Seizure Time Seen by Provider: 06/11/19 05:50 Source: EMS Mode of arrival: EMS Limitations: altered mental status History of Present Illness HPI Narrative: This is a 53-year-old male comes to the emergency department for complaint of seizure. Patient is unable to answer questions but per EMS patient had friends or family were present. They heard patient shaking and witnessed tonic-clonic type movements. This lasted for a couple minutes. EMS states that patient did seem postictal and while they were moving the patient into the EMS rig they noted about 15 seconds of similar movement. Patient received Versed 5 mg IV. Prior to Versed patient was not alert and oriented but was localizing and had full motion on both sides of upper and lower extremities. They did not appreciate any facial droop or flaccid or weakness. After Versed he has been snoring but they state that they had good O2 sats in route. Patient does not have any known seizure history. He does have a history of hypertension, dyslipidemia, diabetes I supposed be on aspirin, atorvastatin amlodipine, insulin and metformin but has not taken these over the last several years. Patient has been here several times recently for neurologic symptoms including hallucinations, vision changes and had multiple workups with MRIs. Related Data Home Medications Medication Instructions Recorded Confirmed aspirin 81 mg PO DAILY 05/26/19 06/11/19 atorvastatin 40 mg PO DAILY 05/26/19 06/11/19 hydrochlorothiazide 12.5 mg PO QAM 05/26/19 06/11/19 metformin 1,000 mg PO BID 05/26/19 06/11/19 Previous Rx's Medication Instructions Recorded amlodipine [Norvasc] 5 mg PO DAILY #30 tab 05/28/19 blood-glucose meter [Glucocard 01 #1 each 05/28/19 Meter] glucose 4 gram PO Q15M PRN #14 tab 05/28/19 insulin glargine [Lantus Solostar 28 unit SUBCUT BID 30 Days #16.8 ml 06/03/19 U-100 Insulin] Allergies Allergy/AdvReac Type Severity Reaction Status Date / Time No Known Drug Allergies Allergy Verified 05/26/19 10:03 <Rita Gilbert MD - Last Filed: 06/13/19 03:10> History of Present Illness HPI Narrative: Care is assumed. Additional summary recent history. 52-year-old gentleman with a history of diabetes, hypertension, hyperlipidemia who has not been taking care of himself until recently decided he was going to get ?all of these back under control?. He was initially seen at [facility] on May 26 with complaints of hallucinations and difficulty with an expressive aphasia. Just prior to this he had been started on aspirin, lisinopril, hydrochlorothiazide, atorvastatin, metformin -intermittent use of these. No concerns for recreational drug use. White blood cell count was slightly elevated at that time, CT, EKG were unremarkable he was admitted to the hospital for observation. Stroke MRI was done and found to be unremarkable with this admission. After a 2 day hospital stay,diagnoses from initial admission were a toxic metabolic and encephalopathy, acute UTI, acute kidney injury and acute constipation all improving. Psychiatric evaluation was recommended if symptoms did not improve. Next presentation was May 31 with complaints of poorly controlled blood sugars and altered mental status similar to prior presentation. He was admitted for an additional 2 days with a diagnosis of diabetes, acute kidney injury, dehydration and continued subacute visual hallucinations. Outpatient Neurology and Psychiatric follow-up were recommended. Next presentation June 04. Chief complaint at that time was confusion, ataxia with cerebellar symptoms, continued right sided visual disturbance with her and vision changes. Unclear time of onset. Again stroke workup, repeated consultation with [place] [facility]. Given continued absence of findings aside from a the right blurry hemianopsia we did not have additional options and he was discharged from the emergency room to ophthalmology. Patient reports that the commercial baking teacher felt that it was a stroke despite the 2-MRIs. Records from this visit are being requested currently. Patient presents again 5 days later with new onset seizures. 8:[address] Tom Brush, [place] [facility]. He agreed that transfer to [place] for further neurologic consultation possible EEG and lumbar puncture would be appropriate. This is currently being arranged. He suggested adding acyclovir on the off chance this may be an HSV encephalitis. If a 2nd seizure were to occur recommended adding phenytoin 15 milligrams/kilogram and agrees with current loading dose of Keppra. He does have prior CT and MRI studies. Will push today's CT down to [place] as well. 9:42 Dr Hunter, optho Dense right hemianopsia, with mild retinopaty (diabetic/hypertensive) but nothing to explain the hemianopsia. He asked radiology re-read scan. Addendum: There is swelling, subtle increased T2 signal and possibly mildly restricted diffusion involving the cortical day matter of the inferior left occipital lobe as well as the posterior and medial left temporal lobe. No white matter signal abnormalities are identified in the left temporal and occipital lobes. No abnormal postcontrast enhancement associated with the left temporo-occipital cortical signal abnormality. Finding is nonspecific and can be related to causes of regional hyperemia including hypertension or epilepsy, causes of regional hypoxia including vasculitis and causes of encephalitis including Jose-Creutzfeld disease. Findings discussed with Dr. Hunter on 06/06/2019 at 1337 hrs. Review of Systems <Jocelynn Patricio DO - Last Filed: 06/11/19 07:05> Review of Systems ROS Unobtainable: Unobtainable due to mental status/LOC <Rita Gilbert MD - Last Filed: 06/13/19 03:10> Review of Systems Narrative: Both brothers do note that he has had a bit of a headache over the last week but no other new findings for review of systems Patient History <Jocelynn Patricio DO - Last Filed: 06/11/19 07:05> Medical History Diabetes (Acute) Dyslipidemia (Acute) Hypertension (Acute) Palpitations (Acute) Surgical History No pertinent past surgical history (Acute) Social History household members: family Smoking Status: Never smoker alcohol intake: never Smoking Status: Never smoker alcohol intake frequency: 0-2 drinks per day Substance Use Type: does not use Exam <Jocelynn Patricio DO - Last Filed: 06/11/19 07:05> Narrative Exam Narrative: GEN: well nourished, male, patient is snoring, does not respond to verbal or physical stimuli. HEENT: Atraumatic, pupils are 2-3 mm, reactive to light, round, nares are clear, TMs are clear with no fluid, there is no conjunctival pallor. Throat is clear without any exudates, erythema, tonsillar enlargement or uvular deviation, patient does not have any obvious tongue lacerations. No dental injury. HEART: Regular rate and rhythm without murmur, clicks, rubs. No carotid bruits, pulses are equal in upper and lower extremities LUNGS:Lungs clear to auscultation, no wheezes, rales, crackles, chest moves symmetrically ABD:bowel sounds normal, soft, non-tender, no guarding, rebound, rigidity, no masses noted, no hepatosplenomegaly :No CVA tenderness MSCL: Non-tender, no muscle atrophy, unable to test physical strength. NEURO: Patient rolling in bed, localizing but no purposeful movement. Reflexes 2/4 DTR upper and lower extremities. Initial Vital Signs Initial Vital Signs: Vital Signs Temperature 97.8 F 06/11/19 06:03 Pulse Rate 125 H 06/11/19 06:03 Respiratory Rate 21 06/11/19 06:03 Blood Pressure 125/78 06/11/19 06:03 Pulse Oximetry 98 06/11/19 06:03 <Rita Gilbert MD - Last Filed: 06/13/19 03:10> Initial Vital Signs Initial Vital Signs: Vital Signs Temperature 97.8 F 06/11/19 06:03 Pulse Rate 125 H 06/11/19 06:03 Respiratory Rate 21 06/11/19 06:03 Blood Pressure 125/78 06/11/19 06:03 Pulse Oximetry 98 06/11/19 06:03 Course <Jocelynn Patricio DO - Last Filed: 06/11/19 07:05> Orders Ordered: Discontinued Medications Sodium Chloride (Normal Saline 0.9%) 1,000 mls @ 1,000 mls/hr IV BOLUS ONE Stop: 06/11/19 06:49 Last Infusion: 06/11/19 09:19 Dose: 0 mls/hr Documented by: Admin: 06/11/19 07:39 Dose: 1,000 mls/hr Documented by: BTONER Levetiracetam 2,500 mg/ Sodium (Chloride) 125 mls @ 500 mls/hr IV NOW ONE Stop: 06/11/19 06:59 Last Infusion: 06/11/19 08:19 Dose: 0 mls/hr Documented by: Admin: 06/11/19 07:24 Dose: 500 mls/hr Documented by: BTONER Levetiracetam 500 mg/ Sodium (Chloride) 105 mls @ 420 mls/hr IV NOW ONE Stop: 06/11/19 07:29 Last Infusion: 06/11/19 09:19 Dose: 0 mls/hr Documented by: Admin: 06/11/19 08:44 Dose: 420 mls/hr Documented by: BTONER Sodium Chloride (Normal Saline 0.9%) 1,000 mls @ 1,000 mls/hr IV BOLUS ONE Stop: 06/11/19 08:11 Last Infusion: 06/11/19 14:02 Dose: 0 mls/hr Documented by: Admin: 06/11/19 09:35 Dose: 1,000 mls/hr Documented by: BTONER Acyclovir 1,000 mg/ Dextrose 100 mls @ 100 mls/hr IV NOW ONE Stop: 06/11/19 08:19 Last Infusion: 06/11/19 10:19 Dose: 0 mls/hr Documented by: [email or web address] Admin: 06/11/19 08:45 Dose: 100 mls/hr Documented by: BTONER Lorazepam (Ativan) 0.5 mg IV NOW ONE Stop: 06/11/19 06:40 Last Admin: 06/11/19 06:42 Dose: 0.5 mg Documented by: RUBY Vital Signs Vital signs: Vital Signs - 8 hr 06/11/19 06:03 06/11/19 07:45 Temperature 97.8 F Pulse Rate 125 H 105 H Respiratory Rate 21 12 Blood Pressure 125/78 Blood Pressure [Right Arm] 143/83 H Pulse Oximetry 98 98 <Rita Gilbert MD - Last Filed: 06/13/19 03:10> Course Course Narrative: 8:50 patient is accepted by [facility] hospitalist, Dr. Truong after consultation with neurologist Dr. Brush. Waiting for actual bed assignment and then will arrange for ALS transport Orders Ordered: Discontinued Medications Sodium Chloride (Normal Saline 0.9%) 1,000 mls @ 1,000 mls/hr IV BOLUS ONE Stop: 06/11/19 06:49 Last Infusion: 06/11/19 09:19 Dose: 0 mls/hr Documented by: Admin: 06/11/19 07:39 Dose: 1,000 mls/hr Documented by: BTONER Levetiracetam 2,500 mg/ Sodium (Chloride) 125 mls @ 500 mls/hr IV NOW ONE Stop: 06/11/19 06:59 Last Infusion: 06/11/19 08:19 Dose: 0 mls/hr Documented by: Admin: 06/11/19 07:24 Dose: 500 mls/hr Documented by: BTONER Levetiracetam 500 mg/ Sodium (Chloride) 105 mls @ 420 mls/hr IV NOW ONE Stop: 06/11/19 07:29 Last Infusion: 06/11/19 09:19 Dose: 0 mls/hr Documented by: Admin: 06/11/19 08:44 Dose: 420 mls/hr Documented by: BTONER Sodium Chloride (Normal Saline 0.9%) 1,000 mls @ 1,000 mls/hr IV BOLUS ONE Stop: 06/11/19 08:11 Last Infusion: 06/11/19 14:02 Dose: 0 mls/hr Documented by: Admin: 06/11/19 09:35 Dose: 1,000 mls/hr Documented by: BTONER Acyclovir 1,000 mg/ Dextrose 100 mls @ 100 mls/hr IV NOW ONE Stop: 06/11/19 08:19 Last Infusion: 06/11/19 10:19 Dose: 0 mls/hr Documented by: Admin: 06/11/19 08:45 Dose: 100 mls/hr Documented by: BTONER Lorazepam (Ativan) 0.5 mg IV NOW ONE Stop: 06/11/19 06:40 Last Admin: 06/11/19 06:42 Dose: 0.5 mg Documented by: RUBY Vital Signs Vital signs: Vital Signs - 8 hr 06/11/19 06:03 06/11/19 07:45 Temperature 97.8 F Pulse Rate 125 H 105 H Respiratory Rate 21 12 Blood Pressure 125/78 Blood Pressure [Right Arm] 143/83 H Pulse Oximetry 98 98 MDM - Seizure <Jocelynn Patricio DO - Last Filed: 06/11/19 07:05> Lab Data Attestation: I reviewed the patient's lab results. Result diagrams: 06/11/19 05:59 03/11/20 05:59 Labs: Lab Results 06/11/19 06/11/19 06/11/19 Range/Units 05:59 05:59 05:59 WBC 15.4 H (4.5-11.0) X10^3/uL RBC 4.59 (4.5-5.9) X10^6/uL Hgb 13.0 L (13.5-17.5) g/dL Hct 39.9 L (41-53) % MCV 86.9 D (80-100) fL MCH 28.2 (26-34) PG MCHC 32.5 (30-36) % RDW 15.0 H (11.6-14.8) % Plt Count 471 H (150-400) X10^3/uL Neut % (Auto) 57.9 (50-75) % Lymph % (Auto) 35.2 (25-40) % [place] % (Auto) 4.9 (3-14) % Eos % (Auto) 1.3 L (2-4) % Baso % (Auto) 0.7 (0-2) % Neut # (Auto) 8900 H (6080-3909) /uL Lymph # (Auto) 5400 H (4825-8422) /uL [place] # (Auto) 800 (0-900) /uL Eos # (Auto) 200 (0-450) /uL Baso # (Auto) 100 (0-100) /uL Sodium 139 (137-145) mmol/L Potassium 3.8 (3.4-5.1) mmol/L Chloride 98 (98-107) mmol/L Carbon Dioxide 10 L (22-32) mmol/L BUN 14 (9-20) mg/dL Creatinine 1.31 H (0.66-1.25) mg/dL Estimated GFR 57.7 L (>60) mL/min BUN/Creatinine Ratio 10.7 (6-22) Glucose 271 H D (70-100) mg/dL Lactate (0.7-2.1) mmol/L Calcium 9.8 (8.4-10.2) mg/dL Phosphorus 5.8 H (2.5-4.5) mg/dL Magnesium 1.8 (1.6-2.3) mg/dL Total Creatine Kinase 70 (55-170) U/L CK-MB (CK-2) TNP CK-MB (CK-2) Rel Index TNP Troponin I < 0.012 (0.01-0.034) ng/mL Prolactin 35.8 H (3.7-17.9) ng/mL Urine Color Urine Appearance Urine pH (4.5-8.0) Ur Specific Estill (1.000-1.035) Urine Protein (Negative) Urine Glucose (UA) (Negative) g/dL Urine Ketones (NEGATIVE) Urine Occult Blood (Negative) Urine Nitrate (Negative) Urine Bilirubin (NEGATIVE) Urine Urobilinogen (0.2) E.U./dL Ur Leukocyte Esterase (NEGATIVE) Urine RBC (0-5/HPF) Urine WBC (0-5/HPF) Ur Squamous Epith Cells (0-5/HPF) Urine Bacteria (None) Ur Culture Indicated? Micro UA Comment U Opiates 300ng/mL cut (Negative) Ur Oxycodone Screen (Negative) Urine Methadone Screen (Negative) Ur Barbiturates Screen (Negative) U Tricyclic Antidepress (Negative) Ur Phencyclidine Scrn (Negative) Ur Amphetamines Screen (Negative) U Methamphetamines Scrn (Negative) Ur MDMA Scrn (Ecstasy) (Negative) U Benzodiazepines Scrn (Negative) Urine Cocaine Screen (Negative) U Marijuana (THC) Screen (Negative) Ethyl Alcohol < 10 ( - 10) mg/dL Ketones (<0.27) mmol/L 06/11/19 06/11/19 06/11/19 Range/Units 05:59 06:49 09:09 WBC (4.5-11.0) X10^3/uL RBC (4.5-5.9) X10^6/uL Hgb (13.5-17.5) g/dL Hct (41-53) % MCV (80-100) fL MCH (26-34) PG MCHC (30-36) % RDW (11.6-14.8) % Plt Count (150-400) X10^3/uL Neut % (Auto) (50-75) % Lymph % (Auto) (25-40) % [place] % (Auto) (3-14) % Eos % (Auto) (2-4) % Baso % (Auto) (0-2) % Neut # (Auto) (3902-3230) /uL Lymph # (Auto) (6180-4891) /uL [place] # (Auto) (0-900) /uL Eos # (Auto) (0-450) /uL Baso # (Auto) (0-100) /uL Sodium (137-145) mmol/L Potassium (3.4-5.1) mmol/L Chloride (98-107) mmol/L Carbon Dioxide (22-32) mmol/L BUN (9-20) mg/dL Creatinine (0.66-1.25) mg/dL Estimated GFR (>60) mL/min BUN/Creatinine Ratio (6-22) Glucose (70-100) mg/dL Lactate 11.7 H* 3.4 H (0.7-2.1) mmol/L Calcium (8.4-10.2) mg/dL Phosphorus (2.5-4.5) mg/dL Magnesium (1.6-2.3) mg/dL Total Creatine Kinase (55-170) U/L CK-MB (CK-2) CK-MB (CK-2) Rel Index Troponin I (0.01-0.034) ng/mL Prolactin (3.7-17.9) ng/mL Urine Color Urine Appearance Urine pH (4.5-8.0) Ur Specific Estill (1.000-1.035) Urine Protein (Negative) Urine Glucose (UA) (Negative) g/dL Urine Ketones (NEGATIVE) Urine Occult Blood (Negative) Urine Nitrate (Negative) Urine Bilirubin (NEGATIVE) Urine Urobilinogen (0.2) E.U./dL Ur Leukocyte Esterase (NEGATIVE) Urine RBC (0-5/HPF) Urine WBC (0-5/HPF) Ur Squamous Epith Cells (0-5/HPF) Urine Bacteria (None) Ur Culture Indicated? Micro UA Comment U Opiates 300ng/mL cut (Negative) Ur Oxycodone Screen (Negative) Urine Methadone Screen (Negative) Ur Barbiturates Screen (Negative) U Tricyclic Antidepress (Negative) Ur Phencyclidine Scrn (Negative) Ur Amphetamines Screen (Negative) U Methamphetamines Scrn (Negative) Ur MDMA Scrn (Ecstasy) (Negative) U Benzodiazepines Scrn (Negative) Urine Cocaine Screen (Negative) U Marijuana (THC) Screen (Negative) Ethyl Alcohol ( - 10) mg/dL Ketones 0.15 (<0.27) mmol/L 06/11/19 06/11/19 06/11/19 Range/Units 12:10 12:10 12:10 WBC (4.5-11.0) X10^3/uL RBC (4.5-5.9) X10^6/uL Hgb (13.5-17.5) g/dL Hct (41-53) % MCV (80-100) fL MCH (26-34) PG MCHC (30-36) % RDW (11.6-14.8) % Plt Count (150-400) X10^3/uL Neut % (Auto) (50-75) % Lymph % (Auto) (25-40) % [place] % (Auto) (3-14) % Eos % (Auto) (2-4) % Baso % (Auto) (0-2) % Neut # (Auto) (4401-3851) /uL Lymph # (Auto) (2338-3918) /uL [place] # (Auto) (0-900) /uL Eos # (Auto) (0-450) /uL Baso # (Auto) (0-100) /uL Sodium (137-145) mmol/L Potassium (3.4-5.1) mmol/L Chloride (98-107) mmol/L Carbon Dioxide (22-32) mmol/L BUN (9-20) mg/dL Creatinine (0.66-1.25) mg/dL Estimated GFR (>60) mL/min BUN/Creatinine Ratio (6-22) Glucose (70-100) mg/dL Lactate (0.7-2.1) mmol/L Calcium (8.4-10.2) mg/dL Phosphorus (2.5-4.5) mg/dL Magnesium (1.6-2.3) mg/dL Total Creatine Kinase (55-170) U/L CK-MB (CK-2) CK-MB (CK-2) Rel Index Troponin I (0.01-0.034) ng/mL Prolactin (3.7-17.9) ng/mL Urine Color Yellow Urine Appearance Clear Urine pH 5.0 (4.5-8.0) Ur Specific Estill 1.015 (1.000-1.035) Urine Protein Negative (Negative) Urine Glucose (UA) 1+ H (Negative) g/dL Urine Ketones Negative (NEGATIVE) Urine Occult Blood Negative (Negative) Urine Nitrate Negative (Negative) Urine Bilirubin Negative (NEGATIVE) Urine Urobilinogen 0.2 (0.2) E.U./dL Ur Leukocyte Esterase 1+ H (NEGATIVE) Urine RBC 0-1/hpf (0-5/HPF) Urine WBC 1-5/hpf (0-5/HPF) Ur Squamous Epith Cells 0-1 /hpf (0-5/HPF) Urine Bacteria Few (2-10) H (None) Ur Culture Indicated? Specimen cultured Micro UA Comment June esterase + U Opiates 300ng/mL cut Negative (Negative) Ur Oxycodone Screen Negative (Negative) Urine Methadone Screen Negative (Negative) Ur Barbiturates Screen Negative (Negative) U Tricyclic Antidepress Negative (Negative) Ur Phencyclidine Scrn Negative (Negative) Ur Amphetamines Screen Negative (Negative) U Methamphetamines Scrn Negative (Negative) Ur MDMA Scrn (Ecstasy) Negative (Negative) U Benzodiazepines Scrn Positive H (Negative) Urine Cocaine Screen Negative (Negative) U Marijuana (THC) Screen Negative (Negative) Ethyl Alcohol ( - 10) mg/dL Ketones (<0.27) mmol/L Point of Care Testing Glucose POC 192 Urine Dip Bedside Urine Glucose 250 mg/dl Bedside Urine Bilirubin - Negative Bedside Urine Ketone - Negative Urine Specific [place]ill 1.020 Bedside Urine Occult Blood - Negative Bedside Urine pH 6.0 Bedside Urine Protein +/- 15 Bedside Urine Urobilinogen - Negative Bedside Urine Nitrite - Negative Bedside Urine Leukocytes + [address] scan - head: Radiologist's Impression: No acute intracranial pathology. Stable ventricles and cisterns. Negative to intracranial hemorrhage, mass or CT evidence of acute infarction. Bony structures are intact. No sinus fluid levels or mastoid opacification Chest x-ray: Attestation: I personally reviewed and interpreted this imaging study as follows: My Impression: nap ECG Data Attestation: I personally reviewed and interpreted this ECG as follows: Prior ECG tracings: not available for review Interpretation: Sinus tachycardia rate of 141 P are 126 QRS [address] change. MDM Narrative Medical decision making narrative: Patient had two witnessed seizures this am with no prior seizure activity. Patient was not on any medications until recently his brother states that he is actually taking medications that are on his list. This is a new occurrence. He did have sense of workup with MRIs, valuation by Ophthalmology. There was concern for stroke Ophthalmology thought that he did have 1 but his MRI from 05/26/2019 showed normal changes as well as his MRA on 06/06/2019. Patient restarting have increased mentation although he still appears postictal and is not following commands Keppra was ordered and started IV for potential status as patient has had 2 seizures without return to baseline. There is only 2500mg IV in the night pharmacy this was started with plan for day pharmacy to give additional 500mg when they arrive in the next 30 minutes. patient is becoming more alert and responding to his name but is not cooperative. Both is brothers are at bedside. Patient's head CT shows no new changes but does have some chronic change, lab work shows white count of 15, hemoglobin of 13 which appears stable. Platelets are 471. Chemistry showed normal electrolytes CO2 is 10, creatinine is 1.3, he has been elevated to 1.5 but looks like this is above his normal. Glucose is 271, phosphorus 5.8 with a normal calcium. EKG shows tachycardia but does appear to be sinus. Troponin is negative. Prolactin is 35. Patient is signed out to Dr. Gilbert, lactate is pending. Urine has not been collected, Keppra started. HR is slowly improving. Patient mentation slowly improving. <Rita Gilbert MD - Last Filed: 06/13/19 03:10> Lab Data Labs: Lab Results 06/11/19 06/11/19 06/11/19 Range/Units 05:59 05:59 05:59 WBC 15.4 H (4.5-11.0) X10^3/uL RBC 4.59 (4.5-5.9) X10^6/uL Hgb 13.0 L (13.5-17.5) g/dL Hct 39.9 L (41-53) % MCV 86.9 D (80-100) fL MCH 28.2 (26-34) PG MCHC 32.5 (30-36) % RDW 15.0 H (11.6-14.8) % Plt Count 471 H (150-400) X10^3/uL Neut % (Auto) 57.9 (50-75) % Lymph % (Auto) 35.2 (25-40) % [place] % (Auto) 4.9 (3-14) % Eos % (Auto) 1.3 L (2-4) % Baso % (Auto) 0.7 (0-2) % Neut # (Auto) 8900 H (7857-2548) /uL Lymph # (Auto) 5400 H (5945-2176) /uL [place] # (Auto) 800 (0-900) /uL Eos # (Auto) 200 (0-450) /uL Baso # (Auto) 100 (0-100) /uL Sodium 139 (137-145) mmol/L Potassium 3.8 (3.4-5.1) mmol/L Chloride 98 (98-107) mmol/L Carbon Dioxide 10 L (22-32) mmol/L BUN 14 (9-20) mg/dL Creatinine 1.31 H (0.66-1.25) mg/dL Estimated GFR 57.7 L (>60) mL/min BUN/Creatinine Ratio 10.7 (6-22) Glucose 271 H D (70-100) mg/dL Lactate (0.7-2.1) mmol/L Calcium 9.8 (8.4-10.2) mg/dL Phosphorus 5.8 H (2.5-4.5) mg/dL Magnesium 1.8 (1.6-2.3) mg/dL Total Creatine Kinase 70 (55-170) U/L CK-MB (CK-2) TNP CK-MB (CK-2) Rel Index TNP Troponin I < 0.012 (0.01-0.034) ng/mL Prolactin 35.8 H (3.7-17.9) ng/mL Urine Color Urine Appearance Urine pH (4.5-8.0) Ur Specific Estill (1.000-1.035) Urine Protein (Negative) Urine Glucose (UA) (Negative) g/dL Urine Ketones (NEGATIVE) Urine Occult Blood (Negative) Urine Nitrate (Negative) Urine Bilirubin (NEGATIVE) Urine Urobilinogen (0.2) E.U./dL Ur Leukocyte Esterase (NEGATIVE) Urine RBC (0-5/HPF) Urine WBC (0-5/HPF) Ur Squamous Epith Cells (0-5/HPF) Urine Bacteria (None) Ur Culture Indicated? Micro UA Comment U Opiates 300ng/mL cut (Negative) Ur Oxycodone Screen (Negative) Urine Methadone Screen (Negative) Ur Barbiturates Screen (Negative) U Tricyclic Antidepress (Negative) Ur Phencyclidine Scrn (Negative) Ur Amphetamines Screen (Negative) U Methamphetamines Scrn (Negative) Ur MDMA Scrn (Ecstasy) (Negative) U Benzodiazepines Scrn (Negative) Urine Cocaine Screen (Negative) U Marijuana (THC) Screen (Negative) Ethyl Alcohol < 10 ( - 10) mg/dL Ketones (<0.27) mmol/L 06/11/19 06/11/19 06/11/19 Range/Units 05:59 06:49 09:09 WBC (4.5-11.0) X10^3/uL RBC (4.5-5.9) X10^6/uL Hgb (13.5-17.5) g/dL Hct (41-53) % MCV (80-100) fL MCH (26-34) PG MCHC (30-36) % RDW (11.6-14.8) % Plt Count (150-400) X10^3/uL Neut % (Auto) (50-75) % Lymph % (Auto) (25-40) % [place] % (Auto) (3-14) % Eos % (Auto) (2-4) % Baso % (Auto) (0-2) % Neut # (Auto) (6028-5120) /uL Lymph # (Auto) (4689-3382) /uL [place] # (Auto) (0-900) /uL Eos # (Auto) (0-450) /uL Baso # (Auto) (0-100) /uL Sodium (137-145) mmol/L Potassium (3.4-5.1) mmol/L Chloride (98-107) mmol/L Carbon Dioxide (22-32) mmol/L BUN (9-20) mg/dL Creatinine (0.66-1.25) mg/dL Estimated GFR (>60) mL/min BUN/Creatinine Ratio (6-22) Glucose (70-100) mg/dL Lactate 11.7 H* 3.4 H (0.7-2.1) mmol/L Calcium (8.4-10.2) mg/dL Phosphorus (2.5-4.5) mg/dL Magnesium (1.6-2.3) mg/dL Total Creatine Kinase (55-170) U/L CK-MB (CK-2) CK-MB (CK-2) Rel Index Troponin I (0.01-0.034) ng/mL Prolactin (3.7-17.9) ng/mL Urine Color Urine Appearance Urine pH (4.5-8.0) Ur Specific Estill (1.000-1.035) Urine Protein (Negative) Urine Glucose (UA) (Negative) g/dL Urine Ketones (NEGATIVE) Urine Occult Blood (Negative) Urine Nitrate (Negative) Urine Bilirubin (NEGATIVE) Urine Urobilinogen (0.2) E.U./dL Ur Leukocyte Esterase (NEGATIVE) Urine RBC (0-5/HPF) Urine WBC (0-5/HPF) Ur Squamous Epith Cells (0-5/HPF) Urine Bacteria (None) Ur Culture Indicated? Micro UA Comment U Opiates 300ng/mL cut (Negative) Ur Oxycodone Screen (Negative) Urine Methadone Screen (Negative) Ur Barbiturates Screen (Negative) U Tricyclic Antidepress (Negative) Ur Phencyclidine Scrn (Negative) Ur Amphetamines Screen (Negative) U Methamphetamines Scrn (Negative) Ur MDMA Scrn (Ecstasy) (Negative) U Benzodiazepines Scrn (Negative) Urine Cocaine Screen (Negative) U Marijuana (THC) Screen (Negative) Ethyl Alcohol ( - 10) mg/dL Ketones 0.15 (<0.27) mmol/L 06/11/19 06/11/19 06/11/19 Range/Units 12:10 12:10 12:10 WBC (4.5-11.0) X10^3/uL RBC (4.5-5.9) X10^6/uL Hgb (13.5-17.5) g/dL Hct (41-53) % MCV (80-100) fL MCH (26-34) PG MCHC (30-36) % RDW (11.6-14.8) % Plt Count (150-400) X10^3/uL Neut % (Auto) (50-75) % Lymph % (Auto) (25-40) % [place] % (Auto) (3-14) % Eos % (Auto) (2-4) % Baso % (Auto) (0-2) % Neut # (Auto) (4119-9478) /uL Lymph # (Auto) (9355-5623) /uL [place] # (Auto) (0-900) /uL Eos # (Auto) (0-450) /uL Baso # (Auto) (0-100) /uL Sodium (137-145) mmol/L Potassium (3.4-5.1) mmol/L Chloride (98-107) mmol/L Carbon Dioxide (22-32) mmol/L BUN (9-20) mg/dL Creatinine (0.66-1.25) mg/dL Estimated GFR (>60) mL/min BUN/Creatinine Ratio (6-22) Glucose (70-100) mg/dL Lactate (0.7-2.1) mmol/L Calcium (8.4-10.2) mg/dL Phosphorus (2.5-4.5) mg/dL Magnesium (1.6-2.3) mg/dL Total Creatine Kinase (55-170) U/L CK-MB (CK-2) CK-MB (CK-2) Rel Index Troponin I (0.01-0.034) ng/mL Prolactin (3.7-17.9) ng/mL Urine Color Yellow Urine Appearance Clear Urine pH 5.0 (4.5-8.0) Ur Specific [place]ill 1.015 (1.000-1.035) Urine Protein Negative (Negative) Urine Glucose (UA) 1+ H (Negative) g/dL Urine Ketones Negative (NEGATIVE) Urine Occult Blood Negative (Negative) Urine Nitrate Negative (Negative) Urine Bilirubin Negative (NEGATIVE) Urine Urobilinogen 0.2 (0.2) E.U./dL Ur Leukocyte Esterase 1+ H (NEGATIVE) Urine RBC 0-1/hpf (0-5/HPF) Urine WBC 1-5/hpf (0-5/HPF) Ur Squamous Epith Cells 0-1 /hpf (0-5/HPF) Urine Bacteria Few (2-10) H (None) Ur Culture Indicated? Specimen cultured Micro UA Comment June esterase + U Opiates 300ng/mL cut Negative (Negative) Ur Oxycodone Screen Negative (Negative) Urine Methadone Screen Negative (Negative) Ur Barbiturates Screen Negative (Negative) U Tricyclic Antidepress Negative (Negative) Ur Phencyclidine Scrn Negative (Negative) Ur Amphetamines Screen Negative (Negative) U Methamphetamines Scrn Negative (Negative) Ur MDMA Scrn (Ecstasy) Negative (Negative) U Benzodiazepines Scrn Positive H (Negative) Urine Cocaine Screen Negative (Negative) U Marijuana (THC) Screen Negative (Negative) Ethyl Alcohol ( - 10) mg/dL Ketones (<0.27) mmol/L Point of Care Testing Glucose POC 192 Urine Dip Bedside Urine Glucose 250 mg/dl Bedside Urine Bilirubin - Negative Bedside Urine Ketone - Negative Urine Specific [place] 1.020 Bedside Urine Occult Blood - Negative Bedside Urine pH 6.0 Bedside Urine Protein +/- 15 Bedside Urine Urobilinogen - Negative Bedside Urine Nitrite - Negative Bedside Urine Leukocytes + 70 Esterase MDM Narrative Medical decision making narrative: Plan is transfer to [facility] for advanced Neurologic consultation. Will begin IV acyclovir is recommended. Patient is currently relatively sedated after the Keppra and sleeping Discharge Plan Departure Patient Disposition: [facility] Clinical Impression: Seizure Discharge Date/Time: 06/11/19 20:22 Prescriptions: No Action atorvastatin 40 mg Tablet 40 mg PO DAILY RF: 0 metformin 1,000 mg Tablet 1,000 mg PO BID RF: 0 hydrochlorothiazide 12.5 mg Capsule 12.5 mg PO QAM RF: 0 aspirin 81 mg Tablet,Chewable 81 mg PO DAILY RF: 0 amlodipine [Norvasc] 5 mg Tablet 5 mg PO DAILY Qty: 30 RF: 0 glucose 4 gram tablet,chewable 4 gram PO Q15M PRN (Reason: hypoglycemia) Qty: 14 RF: 0 (DME) blood-glucose meter [Glucocard 01 Meter] Kit See Rx Instructions .ROUTE .MEDSUPPLY Qty: 1 RF: 0 Lantus Solostar U-100 Insulin 100 unit/mL (3 mL) insulin pen 28 unit SUBCUT BID 30 Days Qty: 16.8 RF: 0
[2019-06-11 06:03] VITALS: BP 125/78; PULSE 125; RESP 21; TEMP 36.6; O2SAT 98
[2019-06-11 06:16] LABS: Add Manual Diff / Slide Review NO; Basophils Absolute Auto 100 /uL (0-100); Basophils Percent Auto 0.7 % (0-2); Eosinophils Absolute Auto 200 /uL (0-450); Eosinophils Percent Auto 1.3 % (2-4); Hematocrit 39.9 % (41-53); Lymphocytes Absolute Auto 5400 /uL (1100-4500); Lymphocytes Percent Auto 35.2 % (25-40); Mean Corpuscular HGB Conc 32.5 % (30-36); Mean Corpuscular Hemoglobin 28.2 PG (26-34); Mean Corpuscular Volume 86.9 fL (80-100); Monocytes Absolute Auto 800 /uL (0-900); Monocytes Percent Auto 4.9 % (3-14); Neutrophils Absolute Auto 8900 /uL (1500-7000); Neutrophils Percent Auto 57.9 % (50-75); Platelet Count 471 X10^3/uL (150-400); Red Blood Cell Count 4.59 X10^6/uL (4.5-5.9); White Blood Cell Count 15.4 X10^3/uL (4.5-11.0)
[2019-06-11 06:19] LABS: Creatine Kinase 70 U/L (55-170)
[2019-06-11 06:22] LABS: Ketones (Beta-Hydroxybutyrate) 0.15 mmol/L (<0.27)
[2019-06-11 06:29] LABS: BUN Creatinine Ratio 10.7 (6-22); Blood Urea Nitrogen 14 mg/dL (9-20); Calcium 9.8 mg/dL (8.4-10.2); Carbon Dioxide 10 mmol/L (22-32); Chloride 98 mmol/L (98-107); Estimated Glomerular Filt Rate 57.7 mL/min (>60); Ethanol (ETOH) < 10 mg/dL; Glucose 271 mg/dL (70-100); HEMOLYSIS < 15 (0-50); Magnesium 1.8 mg/dL (1.6-2.3); Phosphorous 5.8 mg/dL (2.5-4.5); Potassium 3.8 mmol/L (3.4-5.1); Sodium 139 mmol/L (137-145)
[2019-06-11 06:32] LABS: Troponin I < 0.012 ng/mL (0.01-0.034)
[2019-06-11] MEDS: LORazepam 2 MG/ML INJ 0.5 MG IV (06:42)
[2019-06-11 06:45] LABS: Prolactin 35.8 ng/mL (3.7-17.9)
[2019-06-11 07:09] LABS: Lactate (Lactic Acid) 11.7 mmol/L (0.7-2.1)
[2019-06-11] MEDS: SODIUM CHLORIDE 0.9% 1,000 ML 1000 ML IV ×2 (07:39→09:35)
[2019-06-11 07:45] VITALS: BP 143/83; PULSE 105; RESP 12; O2SAT 98
--- NOTE | 2019-06-11 07:56 | PC.NURSE ---
patient has CLASSIFIED AD TAKER and 2 brothers at bedside reminding him not to pull at lines and wires
[2019-06-11] MEDS: levETIRAcetam 500 MG in SODIUM CHLORIDE 0.9% 100 ML 420 ML IV (08:44)
[2019-06-11] MEDS: ACYCLOVIR IV (08:45)
[2019-06-11] MEDS: WATER IV (08:45)
[2019-06-11] MEDS: DEXTROSE 5% IV (08:45)
[2019-06-11 08:53] LABS: Reflexed Lactate in 2 Hours Y
[2019-06-11 09:28] LABS: Lactate 2HR (Lactic Acid Rflx) 3.4 mmol/L (0.7-2.1)
[2019-06-11 12:00] VITALS: BP 137/81; PULSE 98; RESP 18; O2SAT 99
[2019-06-11 12:56] LABS: Bacteria Urine Few (2-10); Culture Indicated Urine Specimen Cultured; RBC Urine 0-1/HPF (0-5/HPF); Squamous Epithelial Cell Urine 0-1 /HPF (0-5/HPF); Urine Comments LEU ESTERASE +; WBC Urine 1-5/HPF (0-5/HPF)
[2019-06-11 13:00] VITALS: BP 126/69; PULSE 80; RESP 22; O2SAT 99
[2019-06-11 13:41] LABS: Appearance Urine UA CLEAR; Bilirubin Urine UA NEGATIVE (NEGATIVE); Color Urine UA YELLOW; Glucose Urine UA 1+ g/dL (Negative); Ketones Urine UA NEGATIVE (NEGATIVE); Leukocyte Esterase Urine UA 1+ (NEGATIVE); Nitrite Urine UA NEGATIVE (Negative); Occult Blood Urine UA NEGATIVE (Negative); Protein Urine UA NEGATIVE (Negative); Specific Gravity Urine UA 1.015 (1.000-1.035); Urobilinogen Urine UA 0.2 E.U./dL (0.2)
[2019-06-11 13:44] LABS: UR Morphine/Opiate cutoff 300 Negative (Negative); Ur Creatinine Normal (Normal); Ur Specific Gravity Normal (Normal); Urine Amphetamines Negative (Negative); Urine Cocaine Negative (Negative); Urine Methamphetamines Negative (Negative); Urine Phencyclidine Negative (Negative); Urine Tetrahydrocannabinol Negative (Negative); Urine pH Normal (Normal)
[2019-06-11 13:45] LABS: Urine Barbiturates Negative (Negative); Urine Benzodiazepines Positive (Negative); Urine MDMA Negative (Negative); Urine Methadone Negative (Negative); Urine Oxycodone Negative (Negative); Urine Tricyclic Antidepressant Negative (Negative)
[2019-06-11 20:22] VITALS: BP 128/80; PULSE 84; RESP 18; O2SAT 97
== END 2019-06-11 20:22 | disposition short-term general hospital (02) ==
PROVIDERS: Emergency Medicine; Emergency Provider Emergency Medicine
DX: R56.9 Unspecified convulsions (principal); E11.9 Type 2 diabetes mellitus without complications; I10 Essential (primary) hypertension; E78.5 Hyperlipidemia, unspecified
CPT/HCPCS: 36415; 70450; 71045; 80048; 80305; 80320; 81003; 81015; 82009; 82550; 83605; 83735; 84100; 84146; 84484; 85025; 87086; 93005; 93010; 96361; 96365; 96366; 96367; 96375; 99285; J1953; J2060

== ENCOUNTER → 2019-09-08 14:24 | Outpatient (CLI) | payer OTHER, MEDICAID, SELFPAY ==
[2019-06-23 09:58] VITALS: BMI 29.0
[2019-09-08 15:40] LABS: Hemoglobin A1C% w Est Avg Glu 5.6 % (4.0-6.0)
[2019-09-08 15:42] LABS: BUN Creatinine Ratio 24.7 (6-22); Blood Urea Nitrogen 23 mg/dL (9-20); Carbon Dioxide 23 mmol/L (22-32); Chloride 105 mmol/L (98-107); Estimated Glomerular Filt Rate > 60.0 mL/min (>60); Glucose 153 mg/dL (70-100); HEMOLYSIS < 15 (0-50); Potassium 4.2 mmol/L (3.4-5.1); Sodium 142 mmol/L (137-145)
== END ==
PROVIDERS: PCP Internal Medicine; Referring Provider Internal Medicine; Visit Provider Internal Medicine
DX: E11.65 Type 2 diabetes mellitus with hyperglycemia (principal); I10 Essential (primary) hypertension; Z79.4 Long term (current) use of insulin
CPT/HCPCS: 36415; 80048; 83036

== ENCOUNTER → 2019-12-06 08:24 | Outpatient (CLI) | payer OTHER, MEDICAID, SELFPAY ==
[2019-06-23 09:58] VITALS: BMI 29.0
[2019-12-06 10:28] LABS: Hemoglobin A1C% w Est Avg Glu 5.6 % (4.0-6.0)
[2019-12-06 10:33] LABS: BUN Creatinine Ratio 22.3 (6-22); Blood Urea Nitrogen 23 mg/dL (9-20); Calcium 9.5 mg/dL (8.4-10.2); Carbon Dioxide 27 mmol/L (22-32); Chloride 104 mmol/L (98-107); Estimated Glomerular Filt Rate > 60.0 mL/min (>60); Glucose 112 mg/dL (70-100); HEMOLYSIS < 15 (0-50); Potassium 4.1 mmol/L (3.4-5.1); Sodium 140 mmol/L (137-145)
== END ==
PROVIDERS: PCP Internal Medicine; Referring Provider Internal Medicine; Visit Provider Internal Medicine
DX: E11.65 Type 2 diabetes mellitus with hyperglycemia (principal); I10 Essential (primary) hypertension; Z79.4 Long term (current) use of insulin
CPT/HCPCS: 36415; 80048; 83036

== ENCOUNTER → 2020-06-03 09:08 | Outpatient (CLI) | payer OTHER, MEDICAID, SELFPAY ==
[2019-06-23 09:58] VITALS: BMI 29.0
[2020-06-03 10:06] LABS: Hemoglobin A1C% w Est Avg Glu 5.2 % (4.0-6.0)
[2020-06-03 10:14] LABS: Alanine Aminotransferase 20 IU/L (<50); Albumin 4.5 g/dL (3.5-5.0); Albumin Globulin Ratio 1.3 (1.0-2.8); Alkaline Phosphatase 78 U/L (38-126); Aspartate Aminotransferase 21 IU/L (17-59); BUN Creatinine Ratio 22.3 (6-22); Bilirubin Total 0.3 mg/dL (0.2-1.3); Blood Urea Nitrogen 21 mg/dL (9-20); Calcium 9.3 mg/dL (8.4-10.2); Carbon Dioxide 26 mmol/L (22-32); Chloride 105 mmol/L (98-107); Cholesterol 101 mg/dL (140-199); Estimated Glomerular Filt Rate > 60.0 mL/min (>60); Globulin 3.4 g/dL (1.7-4.1); Glucose 94 mg/dL (70-100); HDL Cholesterol 27 mg/dL (40-60); HEMOLYSIS < 15 (0-50); LDL Cholesterol Calculated 61 mg/dL (<100); Sodium 142 mmol/L (137-145); Total Protein 7.9 g/dL (6.3-8.2); Triglycerides 63 mg/dL (35-150)
[2020-06-03 11:30] LABS: Creatinine Urine Random 156.6 mg/dL
[2020-06-03 11:35] LABS: Microalbumi Creatinin Ratio Ur 10.2 ug/mg CR (<30); Microalbumin Urine Random 1.6 mg/dL (0-1.6)
== END ==
PROVIDERS: PCP Internal Medicine; Referring Provider Internal Medicine; Visit Provider Internal Medicine
DX: E11.65 Type 2 diabetes mellitus with hyperglycemia (principal); E78.5 Hyperlipidemia, unspecified; I10 Essential (primary) hypertension; Z79.4 Long term (current) use of insulin
CPT/HCPCS: 36415; 80053; 80061; 82043; 82570; 83036

== ENCOUNTER → 2020-12-04 08:37 | Outpatient (CLI) | payer OTHER, MEDICAID, SELFPAY ==
[2019-06-23 09:58] VITALS: BMI 29.0
[2020-12-04 09:38] LABS: Hemoglobin A1C% w Est Avg Glu 5.3 % (4.0-6.0)
[2020-12-04 09:46] LABS: Alanine Aminotransferase 18 IU/L (<50); Albumin 4.3 g/dL (3.5-5.0); Albumin Globulin Ratio 1.5 (1.0-2.8); Alkaline Phosphatase 91 U/L (38-126); Aspartate Aminotransferase 20 IU/L (17-59); BUN Creatinine Ratio 21.9 (6-22); Bilirubin Total 0.4 mg/dL (0.2-1.3); Blood Urea Nitrogen 25 mg/dL (9-20); Calcium 8.7 mg/dL (8.4-10.2); Carbon Dioxide 25 mmol/L (22-32); Chloride 105 mmol/L (98-107); Cholesterol 90 mg/dL (140-199); Estimated Glomerular Filt Rate > 60.0 mL/min (>60); Globulin 2.8 g/dL (1.7-4.1); Glucose 178 mg/dL (70-100); HDL Cholesterol 28 mg/dL (40-60); HEMOLYSIS < 15 (0-50); LDL Cholesterol Calculated 34 mg/dL (<100); Potassium 4.7 mmol/L (3.4-5.1); Sodium 138 mmol/L (137-145); Total Protein 7.1 g/dL (6.3-8.2); Triglycerides 139 mg/dL (35-150)
== END ==
PROVIDERS: PCP Internal Medicine; Referring Provider Internal Medicine; Visit Provider Internal Medicine
DX: E11.9 Type 2 diabetes mellitus without complications (principal); Z79.4 Long term (current) use of insulin; I10 Essential (primary) hypertension; E78.5 Hyperlipidemia, unspecified
CPT/HCPCS: 36415; 80053; 80061; 83036

== ENCOUNTER → 2021-06-06 08:14 | Outpatient (CLI) | payer OTHER, MEDICAID, SELFPAY ==
[2019-06-23 09:58] VITALS: BMI 29.0
[2021-06-06 10:02] LABS: Hemoglobin A1C% w Est Avg Glu 5.4 % (4.0-6.0)
[2021-06-06 10:14] LABS: Alanine Aminotransferase 33 IU/L (<50); Albumin 4.3 g/dL (3.5-5.0); Albumin Globulin Ratio 1.4 (1.0-2.8); Alkaline Phosphatase 77 U/L (38-126); Aspartate Aminotransferase 74 IU/L (17-59); Bilirubin Total 0.3 mg/dL (0.2-1.3); Blood Urea Nitrogen 26 mg/dL (9-20); Calcium 9.1 mg/dL (8.4-10.2); Carbon Dioxide 28 mmol/L (22-32); Chloride 106 mmol/L (98-107); Cholesterol 95 mg/dL (140-199); Estimated Glomerular Filt Rate > 60.0 mL/min (>60); Globulin 3.1 g/dL (1.7-4.1); Glucose 93 mg/dL (70-100); HDL Cholesterol 28 mg/dL (40-60); HEMOLYSIS < 15 (0-50); LDL Cholesterol Calculated 54 mg/dL (<100); Potassium 4.4 mmol/L (3.4-5.1); Sodium 142 mmol/L (137-145); Total Protein 7.4 g/dL (6.3-8.2); Triglycerides 66 mg/dL (35-150)
== END ==
PROVIDERS: PCP Internal Medicine; Referring Provider Internal Medicine; Visit Provider Internal Medicine
DX: E11.9 Type 2 diabetes mellitus without complications (principal); Z79.4 Long term (current) use of insulin; E78.5 Hyperlipidemia, unspecified; I10 Essential (primary) hypertension
CPT/HCPCS: 36415; 80053; 80061; 83036

== ENCOUNTER → 2021-12-10 09:00 | Outpatient (CLI) | payer OTHER, MEDICAID, SELFPAY ==
[2019-06-23 09:58] VITALS: BMI 29.0
[2021-12-10 09:42] LABS: Hemoglobin A1C% w Est Avg Glu 5.6 % (4.0-6.0)
[2021-12-10 10:15] LABS: Alanine Aminotransferase 15 IU/L (<50); Albumin 4.3 g/dL (3.5-5.0); Albumin Globulin Ratio 1.3 (1.0-2.8); Alkaline Phosphatase 72 U/L (38-126); Aspartate Aminotransferase 18 IU/L (17-59); BUN Creatinine Ratio 12.6 (6-22); Bilirubin Total 0.4 mg/dL (0.2-1.3); Blood Urea Nitrogen 14 mg/dL (9-20); Calcium 9.1 mg/dL (8.4-10.2); Carbon Dioxide 25 mmol/L (22-32); Chloride 105 mmol/L (98-107); Estimated Glomerular Filt Rate > 60 mL/min (>60); Globulin 3.3 g/dL (1.7-4.1); Glucose 92 mg/dL (70-100); HEMOLYSIS < 15 (0-50); Potassium 4.7 mmol/L (3.4-5.1); Sodium 144 mmol/L (137-145); Total Protein 7.6 g/dL (6.3-8.2)
== END ==
PROVIDERS: PCP Internal Medicine; Referring Provider Internal Medicine; Visit Provider Internal Medicine
DX: E11.9 Type 2 diabetes mellitus without complications (principal); E78.5 Hyperlipidemia, unspecified; I10 Essential (primary) hypertension; Z79.4 Long term (current) use of insulin
CPT/HCPCS: 36415; 80053; 83036

== ENCOUNTER → 2022-06-10 08:39 | Outpatient (CLI) | payer OTHER, MEDICAID, SELFPAY ==
[2019-06-23 09:58] VITALS: BMI 29.0
[2022-06-10 11:32] LABS: Creatinine Urine Random 114.9 mg/dL
[2022-06-10 11:37] LABS: Microalbumi Creatinin Ratio Ur 6.9 ug/mg CR (<30); Microalbumin Urine Random 0.8 mg/dL (0-1.6)
[2022-06-10 12:16] LABS: Alanine Aminotransferase 27 IU/L (<50); Albumin 4.2 g/dL (3.5-5.0); Albumin Globulin Ratio 1.3 (1.0-2.8); Alkaline Phosphatase 104 U/L (38-126); Aspartate Aminotransferase 21 IU/L (17-59); Bilirubin Total 0.6 mg/dL (0.2-1.3); Blood Urea Nitrogen 17 mg/dL (9-20); Calcium 9.2 mg/dL (8.4-10.2); Carbon Dioxide 26 mmol/L (22-32); Chloride 102 mmol/L (98-107); Cholesterol 106 mg/dL (140-199); Estimated Glomerular Filt Rate > 60 mL/min (>60); Globulin 3.2 g/dL (1.7-4.1); Glucose 81 mg/dL (70-100); HDL Cholesterol 33 mg/dL (40-60); HEMOLYSIS < 15 (0-50); LDL Cholesterol Calculated 57 mg/dL (<100); Potassium 4.2 mmol/L (3.4-5.1); Sodium 139 mmol/L (137-145); Total Protein 7.4 g/dL (6.3-8.2); Triglycerides 78 mg/dL (35-150)
[2022-06-10 14:00] LABS: Hemoglobin A1C% w Est Avg Glu 6.1 % (4.0-6.0)
== END ==
PROVIDERS: PCP Internal Medicine; Referring Provider Internal Medicine; Visit Provider Internal Medicine
DX: E11.9 Type 2 diabetes mellitus without complications (principal); E78.5 Hyperlipidemia, unspecified; I10 Essential (primary) hypertension
CPT/HCPCS: 36415; 80053; 80061; 82043; 82570; 83036

== ENCOUNTER → 2022-12-09 08:54 | Outpatient (CLI) | payer OTHER, MEDICAID, SELFPAY ==
[2019-06-23 09:58] VITALS: BMI 29.0
[2022-12-09 10:28] LABS: Hemoglobin A1C% w Est Avg Glu 5.9 % (4.0-6.0)
[2022-12-09 10:54] LABS: Alanine Aminotransferase 21 IU/L (<50); Albumin 4.3 g/dL (3.5-5.0); Albumin Globulin Ratio 1.4 (1.0-2.8); Alkaline Phosphatase 75 U/L (38-126); Aspartate Aminotransferase 19 IU/L (17-59); BUN Creatinine Ratio 17.2 (6-22); Bilirubin Total 0.6 mg/dL (0.2-1.3); Blood Urea Nitrogen 17 mg/dL (9-20); Calcium 9.2 mg/dL (8.4-10.2); Carbon Dioxide 26 mmol/L (22-32); Chloride 104 mmol/L (98-107); Estimated Glomerular Filt Rate > 60 mL/min (>60); Glucose 129 mg/dL (70-100); HEMOLYSIS < 15 (0-50); Potassium 4.5 mmol/L (3.4-5.1); Sodium 141 mmol/L (137-145); Total Protein 7.3 g/dL (6.3-8.2)
== END ==
PROVIDERS: PCP Internal Medicine; Referring Provider Internal Medicine; Visit Provider Internal Medicine
DX: E11.9 Type 2 diabetes mellitus without complications (principal); E78.5 Hyperlipidemia, unspecified; I10 Essential (primary) hypertension
CPT/HCPCS: 36415; 80053; 83036

== ENCOUNTER → 2023-06-09 08:01 | Outpatient (CLI) | payer OTHER, MEDICAID, SELFPAY ==
[2019-06-23 09:58] VITALS: BMI 29.0
[2023-06-09 09:08] LABS: Hemoglobin A1C% w Est Avg Glu 6.2 % (4.0-6.0)
[2023-06-09 09:12] LABS: Alanine Aminotransferase 22 IU/L (<50); Albumin Globulin Ratio 1.3 (1.0-2.8); Alkaline Phosphatase 82 U/L (38-126); Aspartate Aminotransferase 17 IU/L (17-59); BUN Creatinine Ratio 17.3 (6-22); Bilirubin Total 0.6 mg/dL (0.2-1.3); Blood Urea Nitrogen 17 mg/dL (9-20); Calcium 8.5 mg/dL (8.4-10.2); Carbon Dioxide 24 mmol/L (22-32); Chloride 111 mmol/L (98-107); Cholesterol 93 mg/dL (140-199); Estimated Glomerular Filt Rate > 60 mL/min (>60); Globulin 3.2 g/dL (1.7-4.1); Glucose 110 mg/dL (70-100); HDL Cholesterol 29 mg/dL (40-60); HEMOLYSIS < 15 (0-50); LDL Cholesterol Calculated 48 mg/dL (<100); Potassium 3.9 mmol/L (3.4-5.1); Sodium 142 mmol/L (137-145); Total Protein 7.2 g/dL (6.3-8.2); Triglycerides 82 mg/dL (35-150)
[2023-06-09 14:33] LABS: Creatinine Urine Random 167.8 mg/dL; Microalbumi Creatinin Ratio Ur 11.3 ug/mg CR (<30); Microalbumin Urine Random 1.9 mg/dL (0-1.6)
== END ==
PROVIDERS: PCP Internal Medicine; Referring Provider Internal Medicine; Visit Provider Internal Medicine
DX: E11.9 Type 2 diabetes mellitus without complications (principal); E78.5 Hyperlipidemia, unspecified; I10 Essential (primary) hypertension; Z12.5 Encounter for screening for malignant neoplasm of prostate
CPT/HCPCS: 36415; 80053; 80061; 82043; 82570; 83036; G0103

== ENCOUNTER → 2023-12-29 10:55 | Outpatient (CLI) | payer OTHER, MEDICAID, SELFPAY ==
[2019-06-23 09:58] VITALS: BMI 29.0
[2023-12-29 11:16] LABS: Hemoglobin A1C% w Est Avg Glu 6.3 % (4.0-6.0)
[2023-12-29 11:20] LABS: Alanine Aminotransferase 17 IU/L (<50); Albumin 4.4 g/dL (3.5-5.0); Albumin Globulin Ratio 1.5 (1.0-2.8); Alkaline Phosphatase 87 U/L (38-126); Aspartate Aminotransferase 17 IU/L (17-59); BUN Creatinine Ratio 17.7 (6-22); Bilirubin Total 0.5 mg/dL (0.2-1.3); Blood Urea Nitrogen 22 mg/dL (9-20); Carbon Dioxide 22 mmol/L (22-32); Chloride 105 mmol/L (98-107); Cholesterol 101 mg/dL (140-199); Estimated Glomerular Filt Rate > 60 mL/min (>60); Glucose 146 mg/dL (70-100); HDL Cholesterol 33 mg/dL (40-60); HEMOLYSIS < 15 (0-50); LDL Cholesterol Calculated 52 mg/dL (<100); Potassium 4.3 mmol/L (3.4-5.1); Sodium 138 mmol/L (137-145); Total Protein 7.4 g/dL (6.3-8.2); Triglycerides 80 mg/dL (35-150)
[2023-12-29 11:36] LABS: Creatinine Urine Random 130.86 mg/dL
[2023-12-29 11:40] LABS: Microalbumin Urine Random 8.5 mg/dL (0-1.6)
== END ==
PROVIDERS: PCP Internal Medicine; Referring Provider Internal Medicine; Visit Provider Internal Medicine
DX: E11.9 Type 2 diabetes mellitus without complications (principal); I10 Essential (primary) hypertension
CPT/HCPCS: 36415; 80053; 80061; 82043; 82570; 83036

== ENCOUNTER → 2024-03-01 09:04 | Outpatient (CLI) | payer OTHER, MEDICAID, SELFPAY ==
[2024-01-01 15:53] VITALS: BMI 29.0
[2024-03-01 10:12] LABS: BUN Creatinine Ratio 17.7 (6-22); Blood Urea Nitrogen 25 mg/dL (9-20); Calcium 9.7 mg/dL (8.4-10.2); Carbon Dioxide 27 mmol/L (22-32); Chloride 106 mmol/L (98-107); Estimated Glomerular Filt Rate 58 mL/min (>60); Glucose 90 mg/dL (70-100); HEMOLYSIS < 15 (0-50); Potassium 4.8 mmol/L (3.4-5.1); Sodium 139 mmol/L (137-145)
== END ==
PROVIDERS: PCP Internal Medicine; Referring Provider Internal Medicine; Visit Provider Internal Medicine
DX: I10 Essential (primary) hypertension (principal)
CPT/HCPCS: 36415; 80048

== ENCOUNTER → 2024-06-07 08:27 | Outpatient (CLI) | payer OTHER, MEDICAID, SELFPAY ==
[2024-01-01 15:53] VITALS: BMI 29.0
[2024-06-07 09:09] LABS: Hemoglobin A1C% w Est Avg Glu 6.1 % (4.0-6.0)
[2024-06-07 09:57] LABS: Alanine Aminotransferase 19 IU/L (<50); Albumin 4.4 g/dL (3.5-5.0); Albumin Globulin Ratio 1.6 (1.0-2.8); Alkaline Phosphatase 75 U/L (38-126); Aspartate Aminotransferase 18 IU/L (17-59); BUN Creatinine Ratio 15.4 (6-22); Bilirubin Total 0.5 mg/dL (0.2-1.3); Blood Urea Nitrogen 16 mg/dL (9-20); Calcium 9.4 mg/dL (8.4-10.2); Carbon Dioxide 26 mmol/L (22-32); Chloride 104 mmol/L (98-107); Cholesterol 115 mg/dL (140-199); Estimated Glomerular Filt Rate > 60 mL/min (>60); Globulin 2.8 g/dL (1.7-4.1); Glucose 104 mg/dL (70-100); HDL Cholesterol 30 mg/dL (40-60); HEMOLYSIS < 15 (0-50); LDL Cholesterol Calculated 67 mg/dL (<100); Potassium 4.3 mmol/L (3.4-5.1); Sodium 141 mmol/L (137-145); Total Protein 7.2 g/dL (6.3-8.2); Triglycerides 88 mg/dL (35-150)
== END ==
PROVIDERS: PCP Internal Medicine; Referring Provider Internal Medicine; Visit Provider Internal Medicine
DX: E11.9 Type 2 diabetes mellitus without complications (principal); I10 Essential (primary) hypertension; E78.5 Hyperlipidemia, unspecified
CPT/HCPCS: 36415; 80053; 80061; 83036

== ENCOUNTER → 2024-12-13 08:25 | Outpatient (CLI) | payer OTHER, SELFPAY ==
[2024-01-01 15:53] VITALS: BMI 29.0
[2024-12-13 10:12] LABS: Add Manual Diff / Slide Review NO; Hematocrit 38.4 % (41-53); Hemoglobin 13.1 g/dL (13.5-17.5); Lymphocytes Absolute Auto 1400 /uL (1100-4500); Mean Corpuscular HGB Conc 34.3 % (30-36); Mean Corpuscular Hemoglobin 27.6 PG (26-34); Mean Corpuscular Volume 80.5 fL (80-100); Platelet Count 262 X10^3/uL (150-400)
[2024-12-13 10:17] LABS: Hemoglobin A1C% w Est Avg Glu 6.5 % (4.0-6.0)
[2024-12-13 10:27] LABS: Alanine Aminotransferase 16 IU/L (<50); Albumin 4.5 g/dL (3.5-5.0); Albumin Globulin Ratio 1.5 (1.0-2.8); Alkaline Phosphatase 81 U/L (38-126); Blood Urea Nitrogen 13 mg/dL (9-20); Calcium 9.3 mg/dL (8.4-10.2); Carbon Dioxide 23 mmol/L (22-32); Chloride 106 mmol/L (98-107); Cholesterol 99 mg/dL (140-199); Estimated Glomerular Filt Rate > 60 mL/min (>60); Globulin 3.1 g/dL (1.7-4.1); Glucose 158 mg/dL (70-99); HDL Cholesterol 27 mg/dL (40-60); HEMOLYSIS < 15 (0-50); Potassium 4.7 mmol/L (3.4-5.1); Sodium 141 mmol/L (137-145); Total Protein 7.6 g/dL (6.3-8.2); Triglycerides 60 mg/dL (35-150)
[2024-12-13 11:36] LABS: Microalbumi Creatinin Ratio Ur 22.0 ug/mg CR (<30)
== END ==
PROVIDERS: PCP Internal Medicine; Referring Provider Internal Medicine; Visit Provider Internal Medicine
DX: E11.9 Type 2 diabetes mellitus without complications (principal); I10 Essential (primary) hypertension; E78.5 Hyperlipidemia, unspecified; Z79.4 Long term (current) use of insulin
CPT/HCPCS: 36415; 80053; 80061; 82043; 82570; 83036; 85025

== ENCOUNTER → 2025-02-07 10:37 | Outpatient (CLI) | payer OTHER, SELFPAY ==
[2024-01-01 15:53] VITALS: BMI 29.0
[2025-02-07 11:32] LABS: Hemoglobin A1C% w Est Avg Glu 7.1 % (4.0-6.0)
[2025-02-07 11:47] LABS: Alanine Aminotransferase 25 IU/L (<50); Albumin 4.5 g/dL (3.5-5.0); Albumin Globulin Ratio 1.5 (1.0-2.8); Alkaline Phosphatase 80 U/L (38-126); Blood Urea Nitrogen 21 mg/dL (9-20); Calcium 9.2 mg/dL (8.4-10.2); Carbon Dioxide 23 mmol/L (22-32); Chloride 101 mmol/L (98-107); Cholesterol 146 mg/dL (140-199); Estimated Glomerular Filt Rate > 60 mL/min (>60); Globulin 3.1 g/dL (1.7-4.1); Glucose 209 mg/dL (70-99); HDL Cholesterol 31 mg/dL (40-60); HEMOLYSIS < 15 (0-50); Potassium 4.0 mmol/L (3.4-5.1); Sodium 139 mmol/L (137-145); Total Protein 7.6 g/dL (6.3-8.2); Triglycerides 175 mg/dL (35-150)
== END ==
PROVIDERS: PCP Internal Medicine; Referring Provider Internal Medicine; Visit Provider Internal Medicine
DX: E11.9 Type 2 diabetes mellitus without complications (principal); I10 Essential (primary) hypertension; E78.5 Hyperlipidemia, unspecified; Z79.4 Long term (current) use of insulin
CPT/HCPCS: 36415; 80053; 80061; 83036